=== PATIENT | female | born 1970 | race American Indian/Alaskan Native ===

== ENCOUNTER 2017-01-07 16:55 | Emergency (ER) | payer SELFPAY ==
[2017-01-07 17:57] LABS: Basophils % (Auto) 0.7 % (0.0-1.8); Eosinophils % (Auto) 2.5 % (0.0-4.3); Hematocrit 40.9 % (30.3-42.9); Hemoglobin 12.9 gm/dl (10.1-14.3); Mean Corpuscular HGB Conc 32 % (30-34); Mean Corpuscular Hemoglobin 26 pg (28-32); Mean Corpuscular Volume 83 fl (79-97); Platelet Count 189 K/mm3 (140-440); Red Blood Count 4.96 M/mm3 (3.65-5.03); Red Cell Distribution Width 15.7 % (13.2-15.2); White Blood Count 7.8 K/mm3 (4.5-11.0)
[2017-01-07 18:18] LABS: Anion Gap 17 mmol/L; BUN/Creatinine Ratio 21.66; Blood Urea Nitrogen 26 mg/dL (7-17); Calcium 9.6 mg/dL (8.4-10.2); Carbon Dioxide 25 mmol/L (22-30); Chloride 100.2 mmol/L (98-107); Glucose 95 mg/dL (65-100); Potassium 4.5 mmol/L (3.6-5.0); Sodium 138 mmol/L (137-145)
[2017-01-08] MEDS ORDERED: TORADOL IM ONE (01:14)
--- NOTE | 2017-01-08 01:15 | Emergency Department Report ---
ED General Adult HPI - General Chief complaint: Chest Pain Stated complaint: CHEST PAIN Time Seen by Provider: 01/08/17 01:06 Source: patient, RN notes reviewed, old records reviewed Mode of arrival: Ambulatory Limitations: No Limitations - History of Present Illness Initial comments: This is a 46-year-old female. She is previously unknown to me. Patient does not currently have a primary care doctor. Patient admitted to the hospital September 2016, had a negative nuclear stress test, normal echocardiogram. The patient presents to the ER complaining of chest pain and epigastric pain. This has been present for 2 weeks. It does not radiate to the back, arms and neck. Patient admits to mild nausea, mild shortness of breath, mild cough. There is no leg pain. No leg swelling. No recent trips greater than 4 hours, no diaphoresis, no hospitalizations recently. Patient denies recent cocaine ingestion, and she is also complaining that she thinks that she may have sleep apnea. She reports a sensation of incomplete and not resting during sleep, waking up during the night, and falling asleep during the day. -: Gradual Location: chest Radiation: non-radiation Quality: aching Consistency: intermittent Improves with: rest Worsens with: movement Associated Symptoms: chest pain, cough, loss of appetite, weakness - Related Data Home Medications Medication Instructions Recorded Confirmed Last Taken amLODIPine [Norvasc] 10 mg PO DAILY 01/07/15 01/08/17 04/09/15 5 MG Hydrochlorothiazide [HCTZ] 25 mg PO QDAY 10/03/16 01/08/17 Unknown Lisinopril [Zestril TAB] 20 mg PO QDAY 10/03/16 01/08/17 Unknown Quetiapine Fumarate [Seroquel] 100 mg PO QHS 10/03/16 01/08/17 Unknown Previous Rx's Medication Instructions Recorded Last Taken Type Benzonatate 200 mg PO TID PRN #30 capsule 10/04/16 Unknown Rx Famotidine [Pepcid] 20 mg PO BID #60 tablet 10/04/16 Unknown Rx Albuterol Sulfate [Proair 90 mcg IH Q4HR PRN #2 aer.pow.ba 01/08/17 Unknown Rx Respiclick] Azithromycin [Zithromax Z-ERMELINDA] 250 mg PO QDAY #6 tablet 01/08/17 Unknown Rx Ketorolac [Toradol] 10 mg PO Q6H PRN #20 tablet 01/08/17 Unknown Rx Allergies Allergy/AdvReac Type Severity Reaction Status Date / Time No Known Allergies Allergy Verified 11/25/14 01:33 ED Review of Systems ROS: Stated complaint: CHEST PAIN Other details as noted in HPI Constitutional: malaise Eyes: denies: vision change ENT: denies: epistaxis Respiratory: cough, shortness of breath Cardiovascular: chest pain Gastrointestinal: denies: abdominal pain Genitourinary: denies: dysuria Musculoskeletal: arthralgia, myalgia Skin: denies: lesions Neurological: weakness Psychiatric: as per HPI ED Past Medical Hx - Past Medical History Hx Hypertension: Yes (2004) Hx Congestive Heart Failure: No Hx Diabetes: No Hx Asthma: No Hx COPD: No Additional medical history: Water retention in lower extremeties. Scoliosis / gallstones - Surgical History Past Surgical History?: Yes Additional Surgical History: Surgery for scoliosis. Hernia repair. 1988 - Social History Smoking Status: Never Smoker Substance Use Type: None, Alcohol - Medications Home Medications: Home Medications Medication Instructions Recorded Confirmed Last Taken Type amLODIPine [Norvasc] 10 mg PO DAILY 01/07/15 01/08/17 04/09/15 History 5 MG Hydrochlorothiazide [HCTZ] 25 mg PO QDAY 10/03/16 01/08/17 Unknown History Lisinopril [Zestril TAB] 20 mg PO QDAY 10/03/16 01/08/17 Unknown History Quetiapine Fumarate [Seroquel] 100 mg PO QHS 10/03/16 01/08/17 Unknown History Benzonatate 200 mg PO TID PRN #30 capsule 10/04/16 01/08/17 Unknown Rx Famotidine [Pepcid] 20 mg PO BID #60 tablet 10/04/16 01/08/17 Unknown Rx Albuterol Sulfate [Proair 90 mcg IH Q4HR PRN #2 aer.pow.ba 01/08/17 Unknown Rx Respiclick] Azithromycin [Zithromax Z-ERMELINDA] 250 mg PO QDAY #6 tablet 01/08/17 Unknown Rx Ketorolac [Toradol] 10 mg PO Q6H PRN #20 tablet 01/08/17 Unknown Rx ED Physical Exam - General Limitations: No Limitations General appearance: alert, in no apparent distress - Head Head exam: Present: atraumatic, normocephalic - Eye Eye exam: Present: normal appearance, EOMI. Absent: nystagmus - ENT ENT exam: Present: normal exam, normal orophraynx, mucous membranes moist, normal external ear exam - Neck Neck exam: Present: normal inspection, full ROM. Absent: tenderness, meningismus - Respiratory Respiratory exam: Present: normal lung sounds bilaterally, chest wall tenderness. Absent: respiratory distress, wheezes, rales, rhonchi, stridor, decreased breath sounds - Cardiovascular Cardiovascular Exam: Present: regular rate, normal rhythm, normal heart sounds. Absent: bradycardia, tachycardia, irregular rhythm, systolic murmur, diastolic murmur, rubs, gallop - GI/Abdominal GI/Abdominal exam: Present: soft, normal bowel sounds. Absent: distended, tenderness, guarding, rebound, rigid, pulsatile mass - Extremities Exam Extremities exam: Present: normal inspection, full ROM, normal capillary refill. Absent: tenderness, pedal edema, joint swelling, calf tenderness - Back Exam Back exam: Present: normal inspection, full ROM. Absent: tenderness, CVA tenderness (R), CVA tenderness (L), muscle spasm, paraspinal tenderness, vertebral tenderness - Neurological Exam Neurological exam: Present: alert, oriented X3, normal gait, other (Extraocular movements intact. Tongue midline. No facial droop. Facial sensation intact to light touch in the V1, V2, V3 distribution bilaterally. 5 and 5 strength in 4 extremities.. Sensation is intact to light touch in 4 extremities.). Absent : motor sensory deficit - Psychiatric Psychiatric exam: Present: normal affect, normal mood - Skin Skin exam: Present: warm, dry, intact, normal color. Absent: rash ED Course Vital Signs 01/07/17 01/08/17 01/08/17 17:16 01:30 01:39 Temperature 98.6 F Pulse Rate 80 Respiratory 16 18 18 Rate Blood Pressure 130/94 Blood Pressure [Left] O2 Sat by Pulse 100 97 Oximetry 01/08/17 03:11 Temperature 98.1 F Pulse Rate 81 Respiratory 18 Rate Blood Pressure Blood Pressure 116/71 [Left] O2 Sat by Pulse 96 Oximetry - Reevaluation(s) Reevaluation #1: 01/08/17 02:08 Differential diagnosis: Bronchitis, COPD, pulmonary hypertension, acute coronary syndrome, costochondritis, pneumonia Assessment and plan: 46-year-old female with 2 weeks of atypical chest pain. Troponins negative 3. Initial EKG was technically incorrect secondary to lead placement. A repeat EKG is essentially unchanged from prior EKG. Low risk by VIC score, low risk by heart score, no pulmonary embolus or DVT risk factors, low risk by well's criteria, perc negative. Patient has been observed in the ER for a prolonged period of time. Chest x- ray with nonspecific findings, I am currently awaiting radiology interpretation. However, I believe patient can be safely discharged to follow up with outpatient cardiology given duration of symptoms, and outpatient pulmonology. Reevaluation #2: 01/08/17 03:17 X-ray the chest suggests infiltrate versus atelectasis. Given history of cough , shortness of breath, mucus production, and given that this appears to be new compared to an old x-ray from September 2016, patient will be treated empirically for community-acquired pneumonia. She will be discharged with azithromycin, albuterol therapy as needed. ED Medical Decision Making - Lab Data Result diagrams: 01/07/17 17:45 01/07/17 17:45 Vital Signs 01/07/17 01/08/17 17:16 01:39 Temperature 98.6 F Pulse Rate 80 Respiratory 16 18 Rate Blood Pressure 130/94 O2 Sat by Pulse 100 Oximetry Lab Results 01/07/17 01/07/17 01/08/17 Range/Units 17:45 17:45 00:26 WBC 7.8 (4.5-11.0) K/mm3 RBC 4.96 (3.65-5.03) M/mm3 Hgb 12.9 (10.1-14.3) gm/dl Hct 40.9 (30.3-42.9) % MCV 83 (79-97) fl MCH 26 L (28-32) pg MCHC 32 (30-34) % RDW 15.7 H (13.2-15.2) % Plt Count 189 (140-440) K/mm3 Lymph % (Auto) 29.4 (13.4-35.0) % Sibley % (Auto) 13.1 H (0.0-7.3) % Eos % (Auto) 2.5 (0.0-4.3) % Baso % (Auto) 0.7 (0.0-1.8) % Lymph # 2.3 (1.2-5.4) K/mm3 Sibley # 1.0 H (0.0-0.8) K/mm3 Eos # 0.2 (0.0-0.4) K/mm3 Baso # 0.1 (0.0-0.1) K/mm3 Seg Neutrophils % 54.3 (40.0-70.0) % Seg Neutrophils # 4.2 (1.8-7.7) K/mm3 Sodium 138 (137-145) mmol/L Potassium 4.5 (3.6-5.0) mmol/L Chloride 100.2 (98-107) mmol/L Carbon Dioxide 25 (22-30) mmol/L Anion Gap 17 mmol/L BUN 26 H (7-17) mg/dL Creatinine 1.2 (0.7-1.2) mg/dL Estimated GFR 58 ml/min BUN/Creatinine Ratio 21.66 % Glucose 95 (65-100) mg/dL Calcium 9.6 (8.4-10.2) mg/dL Troponin T < 0.010 < 0.010 (0.00-0.029) ng/mL 01/08/17 Range/Units 00:26 WBC (4.5-11.0) K/mm3 RBC (3.65-5.03) M/mm3 Hgb (10.1-14.3) gm/dl Hct (30.3-42.9) % MCV (79-97) fl MCH (28-32) pg MCHC (30-34) % RDW (13.2-15.2) % Plt Count (140-440) K/mm3 Lymph % (Auto) (13.4-35.0) % Sibley % (Auto) (0.0-7.3) % Eos % (Auto) (0.0-4.3) % Baso % (Auto) (0.0-1.8) % Lymph # (1.2-5.4) K/mm3 Sibley # (0.0-0.8) K/mm3 Eos # (0.0-0.4) K/mm3 Baso # (0.0-0.1) K/mm3 Seg Neutrophils % (40.0-70.0) % Seg Neutrophils # (1.8-7.7) K/mm3 Sodium (137-145) mmol/L Potassium (3.6-5.0) mmol/L Chloride (98-107) mmol/L Carbon Dioxide (22-30) mmol/L Anion Gap mmol/L BUN (7-17) mg/dL Creatinine (0.7-1.2) mg/dL Estimated GFR ml/min BUN/Creatinine Ratio % Glucose (65-100) mg/dL Calcium (8.4-10.2) mg/dL Troponin T < 0.010 (0.00-0.029) ng/mL - EKG Data -: EKG Interpreted by Ri EKG shows normal: sinus rhythm, axis Rate: normal - EKG Data When compared to previous EKG there are: no significant change 01/08/17 02:10 normal sinus, 76 bpm, QTC 477 ms, flattened T-wave V3, V4, V5 and V6, motion artifact, appears essentially unchanged compared to prior EKG. - Radiology Data Radiology results: report reviewed, image reviewed X-ray of the chest demonstrates no evidence of pleural effusion. Patchy mostly linear densities noted in the right lower lobe and left mid and lower lung moderates areas elected cyst likely, but infiltrates are less likely however not excluded. Critical care attestation.: If time is entered above; I have spent that time in minutes in the direct care of this critically ill patient, excluding procedure time. ED Disposition Clinical Impression: Chest pain Disposition: DISCHARGED TO HOME OR SELFCARE Is pt being admited?: No Does the pt Need Aspirin: No Condition: Stable Instructions: Chest Pain (ED) Additional Instructions: Continue current outpatient medications. Follow up with a primary care doctor or [facility] stitcher within the next week to [address] Abe Espino is a local primary care doctor. X-ray of the chest suggested bronchitis versus pneumonia. Take the antibiotics and breathing medication as directed. Drs. Ram/ Rodney are local orthopedic cast specialist. Follow-up with the pulmonology specialist within the next [address] Kraft is a local pulmonology specialist. Return to the ER right away with new pain, worsening pain, migration of pain, fevers or chills, nausea or vomiting, inability to tolerate liquid feeds. Prescriptions: Albuterol Sulfate [Proair Respiclick] 90 mcg IH Q4HR PRN #2 aer.pow.ba PRN Reason: Wheezing Azithromycin [Zithromax Z-ERMELINDA] 250 mg PO QDAY #6 tablet Ketorolac [Toradol] 10 mg PO Q6H PRN #20 tablet PRN Reason: Pain Referrals: PRIMARY CARE, [Primary Care Provider] - 3-5 Days MARYCRUZ LEVY MD [Staff Physician] - 3-5 Days MICHAELA RAM MD [Staff Physician] - 3-5 Days NAI KRAFT MD [Staff Physician] - 3-5 Days
--- NOTE | 2017-01-08 03:10 | XRay Report ---
FINAL REPORT PROCEDURE: XR CHEST ROUTINE TWO VIEWS PA AND LATERAL TECHNIQUE: PA and lateral chest radiographs were obtained. CPT 83335 A total of 3 films obtained. These are 1 PA view and 2 lateral views of the chest HISTORY: Chest pain COMPARISON: No prior studies are available for comparison. FINDINGS: Heart: Normal. Mediastinum/Vessels: The mediastinal contour is normal when accounting for distortion due to severe curvature of the thoracic spine to the right.. Lungs/Pleural space: There is no pulmonary edema or significant pleural effusion. Patchy linear densities in right lower lobe and in left midlung and left lower lobe are most likely atelectasis. Although less likely, small patchy infiltrates are not excluded. There is no plain film evidence of pneumothorax.. Bony thorax: Severe curvature of mid thoracic spine to the right. A metallic nadya projects over the thoracic spine. Other: IMPRESSION: 1. There is no pulmonary edema. 2. There is no plain film evidence of significant pleural effusion or pneumothorax. 3. Heart size is normal. 4. Patchy mostly linear densities in right lower lobe and in left mid and lower lung are most likely moderate areas of atelectasis. Moderate infiltrates are felt to be less likely but not excluded. 5. Severe curvature of mid thoracic spine to the right. A metallic nadya over thoracic spine noted.
[2017-01-08 03:15] VITALS: BP 116/71
== END 2017-01-08 03:25 | disposition home or self-care (01) ==
LOC: ED 16:55
DX: R07.9 Chest pain, unspecified (principal); I10 Essential (primary) hypertension
CPT/HCPCS: 36415; 71020; 80048; 83880; 84484; 85025; 93005; 93010; 96372; 99284; J1885

== ENCOUNTER 2017-02-21 14:49 | Emergency (ER) | payer SELFPAY ==
[2017-02-21] MEDS ORDERED: CLEOCIN IM ONE (20:25)
[2017-02-21] MEDS ORDERED: NORCO 5/325 PO ONE (20:25)
--- NOTE | 2017-02-21 20:25 | Emergency Department Report ---
- General Chief complaint: Skin/Abscess/Foreign Body Stated complaint: SPIDER BITE LEFT ARM Time Seen by Provider: 02/21/17 20:01 Source: patient, family Mode of arrival: Ambulatory Limitations: No Limitations - History of Present Illness Initial comments: Patient here reports that she was bitten by an insect her left forearm. She doesn't know what it was. She says she has redness and swelling to her left forearm that she noticed yesterday. Denies any fever or chills. Reported pain is 6 out of 10 and aching. Denies taking any [id number] medication. Denies any nausea vomiting. Denies any numbness or tingling to the left forearm. Denies any radiation of pain. Denies any limited range of motion to her fingers. MD complaint: insect bite/sting Onset/Timin -: days(s) Tetanus Up to Date: no Location: LUE (left forearm) Severity: moderate Severity scale (0 -10): 6 Quality: aching Improves with: immobilization, rest Worsens with: palpation, movement Context: witnessed insect bite Associated symptoms: athralgias Treatments Prior to Arrival: none - Related Data Home Medications Medication Instructions Recorded Confirmed Last Taken amLODIPine [Norvasc] 10 mg PO DAILY 01/07/15 01/08/17 04/09/15 5 MG Hydrochlorothiazide [HCTZ] 25 mg PO QDAY 10/03/16 01/08/17 Unknown Lisinopril [Zestril TAB] 20 mg PO QDAY 10/03/16 01/08/17 Unknown Quetiapine Fumarate [Seroquel] 100 mg PO QHS 10/03/16 01/08/17 Unknown Previous Rx's Medication Instructions Recorded Last Taken Type Benzonatate 200 mg PO TID PRN #30 capsule 10/04/16 Unknown Rx Famotidine [Pepcid] 20 mg PO BID #60 tablet 10/04/16 Unknown Rx Albuterol Sulfate [Proair 90 mcg IH Q4HR PRN #2 aer.pow.ba 01/08/17 Unknown Rx Respiclick] Azithromycin [Zithromax Z-ERMELINDA] 250 mg PO QDAY #6 tablet 01/08/17 Unknown Rx Ketorolac [Toradol] 10 mg PO Q6H PRN #20 tablet 01/08/17 Unknown Rx Cephalexin [Keflex] 500 mg PO Q8HR #30 cap 02/21/17 Unknown Rx Ibuprofen [Motrin] 600 mg PO Q8H PRN #15 tablet 02/21/17 Unknown Rx Allergies Allergy/AdvReac Type Severity Reaction Status Date / Time No Known Allergies Allergy Verified 11/25/14 01:33 Abscess Boil HPI - HPI Chief Complaint: Skin/Abscess/Foreign Body Stated Complaint: SPIDER BITE LEFT ARM Time Seen by Provider: 02/21/17 20:01 Home Medications: Home Medications Medication Instructions Recorded Confirmed Last Taken amLODIPine [Norvasc] 10 mg PO DAILY 01/07/15 01/08/17 04/09/15 5 MG Hydrochlorothiazide [HCTZ] 25 mg PO QDAY 10/03/16 01/08/17 Unknown Lisinopril [Zestril TAB] 20 mg PO QDAY 10/03/16 01/08/17 Unknown Quetiapine Fumarate [Seroquel] 100 mg PO QHS 10/03/16 01/08/17 Unknown Previous Rx's Medication Instructions Recorded Last Taken Type Benzonatate 200 mg PO TID PRN #30 capsule 10/04/16 Unknown Rx Famotidine [Pepcid] 20 mg PO BID #60 tablet 10/04/16 Unknown Rx Albuterol Sulfate [Proair 90 mcg IH Q4HR PRN #2 aer.pow.ba 01/08/17 Unknown Rx Respiclick] Azithromycin [Zithromax Z-ERMELINDA] 250 mg PO QDAY #6 tablet 01/08/17 Unknown Rx Ketorolac [Toradol] 10 mg PO Q6H PRN #20 tablet 01/08/17 Unknown Rx Cephalexin [Keflex] 500 mg PO Q8HR #30 cap 02/21/17 Unknown Rx Ibuprofen [Motrin] 600 mg PO Q8H PRN #15 tablet 02/21/17 Unknown Rx Allergies/Adverse Reactions: Allergies Allergy/AdvReac Type Severity Reaction Status Date / Time No Known Allergies Allergy Verified 11/25/14 01:33 ED Review of Systems ROS: Stated complaint: SPIDER BITE LEFT ARM Other details as noted in HPI Comment: All other systems reviewed and negative Constitutional: denies: chills, fever ENT: denies: congestion Respiratory: no symptoms reported Cardiovascular: denies: chest pain, palpitations, edema, syncope Gastrointestinal: denies: abdominal pain, nausea, vomiting Musculoskeletal: arthralgia. denies: back pain, joint swelling, myalgia Skin: other (redness and swelling to right forearm) Neurological: denies: headache, weakness, numbness, paresthesias, confusion, abnormal gait, vertigo ED Past Medical Hx - Past Medical History Previous Medical History?: Yes Hx Hypertension: Yes (2004) Hx Congestive Heart Failure: No Hx Diabetes: No Hx Asthma: No Hx COPD: No Additional medical history: Water retention in lower extremeties. Scoliosis / gallstones - Surgical History Past Surgical History?: Yes Additional Surgical History: Surgery for scoliosis. Hernia repair. 1988 - Family History Family history: hypertension - Social History Smoking Status: Current Every Day Smoker Substance Use Type: None - Medications Home Medications: Home Medications Medication Instructions Recorded Confirmed Last Taken Type amLODIPine [Norvasc] 10 mg PO DAILY 01/07/15 01/08/17 04/09/15 History 5 MG Hydrochlorothiazide [HCTZ] 25 mg PO QDAY 10/03/16 01/08/17 Unknown History Lisinopril [Zestril TAB] 20 mg PO QDAY 10/03/16 01/08/17 Unknown History Quetiapine Fumarate [Seroquel] 100 mg PO QHS 10/03/16 01/08/17 Unknown History Benzonatate 200 mg PO TID PRN #30 capsule 10/04/16 01/08/17 Unknown Rx Famotidine [Pepcid] 20 mg PO BID #60 tablet 10/04/16 01/08/17 Unknown Rx Albuterol Sulfate [Proair 90 mcg IH Q4HR PRN #2 aer.pow.ba 01/08/17 Unknown Rx Respiclick] Azithromycin [Zithromax Z-ERMELINDA] 250 mg PO QDAY #6 tablet 01/08/17 Unknown Rx Ketorolac [Toradol] 10 mg PO Q6H PRN #20 tablet 01/08/17 Unknown Rx Cephalexin [Keflex] 500 mg PO Q8HR #30 cap 02/21/17 Unknown Rx Ibuprofen [Motrin] 600 mg PO Q8H PRN #15 tablet 02/21/17 Unknown Rx ED Physical Exam - General Limitations: No Limitations General appearance: alert, in no apparent distress - Head Head exam: Present: atraumatic, normocephalic, normal inspection - Eye Eye exam: Present: normal appearance, PERRL, EOMI Pupils: Present: normal accommodation - ENT ENT exam: Present: normal exam, normal orophraynx, mucous membranes moist, TM's normal bilaterally, normal external ear exam - Neck Neck exam: Present: normal inspection, full ROM. Absent: tenderness, meningismus, lymphadenopathy - Respiratory Respiratory exam: Present: normal lung sounds bilaterally. Absent: respiratory distress, chest wall tenderness - Cardiovascular Cardiovascular Exam: Present: regular rate, normal rhythm, normal heart sounds - GI/Abdominal GI/Abdominal exam: Present: soft, normal bowel sounds. Absent: distended, tenderness, guarding, rebound, rigid - Expanded Upper Extremity Exam Left General: Absent: laceration, abrasion, nail injury (#), foreign body, amputation , avulsion Shoulder Exam: Present: normal inspection, full ROM. Absent: tenderness, swelling, abrasion, laceration, ecchymosis, deformity, crepidus, dislocation, erythema, tenderness over AC joint Upper Arm exam: Present: normal inspection, full ROM. Absent: tenderness, swelling, abrasion, laceration, ecchymosis, deformity, crepidus, dislocation, erythema Elbow exam: Present: normal inspection, full ROM. Absent: tenderness, swelling , abrasion, laceration, ecchymosis, deformity, crepidus, dislocation, erythema, effusion, pain w/ pronation/supination, tenderness over radial head Forearm Wrist exam: Present: full ROM, tenderness (left midforearm), swelling ( left midforearm). Absent: abrasion, laceration, ecchymosis, deformity, crepidus , dislocation, erythema, tenderness over anatomical snuff box, pain with axial thumb loading Hand Wrist exam: Present: normal inspection, full ROM. Absent: tenderness, swelling, abrasion, laceration, ecchymosis, deformity, crepidus, dislocation, erythema, amputation, nail avulsion, subungual hematoma Neuro motor exam: Present: wrist extension intact, thumb opposition intact, thumb IP flexion intact, thumb adduction intact, fingers 2-5 abduction intact Neurosensory exam: Present: 2-point discrimination, radial nerve intact, ulnar nerve intact, median nerve intact Vascular: Present: normal capillary refill, radial pulse, brachial pulse, ulnar pulse. Absent: vascular compromise, Pallo, pulse deficit radial art, pulse deficit ulnar art, pulse deficit brachial art - Back Exam Back exam: Present: normal inspection, full ROM. Absent: tenderness - Neurological Exam Neurological exam: Present: alert, oriented X3, normal gait, reflexes normal. Absent: motor sensory deficit - Psychiatric Psychiatric exam: Present: normal affect, normal mood - Skin Skin exam: Present: warm, dry, intact, erythema (2 x 2 centimeter area of erythema without any streaking. Pinpoint opening to Center of erythema. No induration or fluctuance noted. No drainage noted.) - Expanded Skin Exam Expanded Type of lesion: Present: bite/sting Distribution of rash: LUE (left forearm) Description of rash: Present: size (2 cm x 2 cm), tenderness, erythematous, swelling (mild swelling). Absent: discharge, fluctuant, indurated ED Course Vital Signs 02/21/17 15:43 Temperature 97.9 F Pulse Rate 80 Respiratory 16 Rate Blood Pressure 140/94 O2 Sat by Pulse 100 Oximetry - Reevaluation(s) Reevaluation #1: 02/21/17 21:33 Patient given tetanus vaccine and clindamycin 600 mg IM and emergency room for cellulitis. ED Medical Decision Making - Medical Decision Making ED course:Pt with cellulitis to left forearm from insect bite. She was given clindamycin 600 mg IM for cellulitis and strict 0.5 mg IM. I discussed the patient that she is any need to follow-up with primary care physician if she does not have one to follow-up with [facility]. Patient given prescription for Keflex 3 times a day. Discharged home in stable condition with prescription for Motrin and Keflex. Critical care attestation.: If time is entered above; I have spent that time in minutes in the direct care of this critically ill patient, excluding procedure time. ED Disposition Clinical Impression: Cellulitis of left forearm Insect bite Qualifiers: Encounter type: initial encounter Qualified Code(s): W57.XXXA - Bitten or stung by nonvenomous insect and other nonvenomous arthropods, initial encounter Disposition: DISCHARGED TO HOME OR SELFCARE Is pt being admited?: No Does the pt Need Aspirin: No Condition: Stable Instructions: Cellulitis (ED), Insect Bite or Sting (ED) Additional Instructions: Please take antibiotic as prescribed. If You Developed increased redness, fever, loss of feeling and right Streaking to left forearm please return to the emergency room otherwise follow-up with a primary care physician or [facility] in 2-3 days. Prescriptions: Cephalexin [Keflex] 500 mg PO Q8HR #30 cap Ibuprofen [Motrin] 600 mg PO Q8H PRN #15 tablet PRN Reason: Pain Referrals: PRIMARY CARE,MD [Primary Care Provider] - 2-3 Days [facility] [Outside] - 2-3 Days Forms: Work/School Release Form(ED)
[2017-02-21] MEDS ORDERED: BOOSTRIX IM ONE (20:48)
[2017-02-21 22:07] VITALS: BP 146/88
== END 2017-02-21 22:00 | disposition home or self-care (01) ==
LOC: ED 14:49
DX: L03.114 Cellulitis of left upper limb (principal); I10 Essential (primary) hypertension; F17.200 Nicotine dependence, unspecified, uncomplicated; W57.XXXA Bitten or stung by nonvenomous insect and other nonvenomous arthropods, initial encounter; Y93.89 Activity, other specified; Y99.9 Unspecified external cause status; Y92.89 Other specified places as the place of occurrence of the external cause
CPT/HCPCS: 90471; 90715; 96372

== ENCOUNTER 2017-03-18 10:38 | Emergency (ER) | payer SELFPAY ==
[2017-03-18] MEDS ORDERED: TESSALON PERLES PO ONE (13:06)
[2017-03-18] MEDS ORDERED: DUONEB 0.5 MG-3 MG/3 ML SOLN IH ONE (13:06)
--- NOTE | 2017-03-18 13:24 | Emergency Department Report ---
ED General Adult HPI - General Chief complaint: Upper Respiratory Infection Stated complaint: LEFT SIDE PAIN/MOUTH WATERY Time Seen by Provider: 03/18/17 12:50 Source: patient Mode of arrival: Ambulatory Limitations: No Limitations - History of Present Illness Initial comments: PT c/o vomiting every night x 3-4 weeks. PT also c/o cough x 2-3 weeks. PT also c/o swelling in her legs x 2-3 weeks. PT denies orthopnea. Pt states she is vomiting up "a ball of slop"PT also c/o LUQ abd pain. pt denies cp. MD Complaint: vomiting/ cough Onset/Timin -: Gradual, week(s) Location: abdomen Severity scale (0 -10): 7 (abd pain) Quality: aching Consistency: constant Associated Symptoms: cough, nausea/vomiting. denies: chest pain, fever/chills - Related Data Home Medications Medication Instructions Recorded Confirmed Last Taken amLODIPine [Norvasc] 10 mg PO DAILY 01/07/15 01/08/17 04/09/15 5 MG Hydrochlorothiazide [HCTZ] 25 mg PO QDAY 10/03/16 01/08/17 Unknown Lisinopril [Zestril TAB] 20 mg PO QDAY 10/03/16 01/08/17 Unknown Quetiapine Fumarate [Seroquel] 100 mg PO QHS 10/03/16 01/08/17 Unknown Previous Rx's Medication Instructions Recorded Last Taken Type Albuterol Sulfate [Proair 90 mcg IH Q4HR PRN #2 aer.pow.ba 01/08/17 Unknown Rx Respiclick] Benzonatate [Tessalon Perles] 100 mg PO Q8HR PRN #12 capsule 03/18/17 Unknown Rx Omeprazole Magnesium [PriLOSEC Otc] 40 mg PO QDAY #14 tablet. 03/18/17 Unknown Rx Allergies Allergy/AdvReac Type Severity Reaction Status Date / Time No Known Allergies Allergy Verified 03/18/17 10:57 ED Review of Systems ROS: Stated complaint: LEFT SIDE PAIN/MOUTH WATERY Other details as noted in HPI Comment: All other systems reviewed and negative Constitutional: malaise, other (fatigue ). denies: chills, fever ENT: denies: ear pain, throat pain, congestion Respiratory: cough. denies: orthopnea, SOB at rest, wheezing Cardiovascular: edema. denies: chest pain Gastrointestinal: abdominal pain, nausea, vomiting, diarrhea (x 2 days ) Genitourinary: denies: dysuria Musculoskeletal: denies: back pain Neurological: denies: abnormal gait ED Past Medical Hx - Past Medical History Previous Medical History?: Yes Hx Hypertension: Yes (2004) Hx Congestive Heart Failure: No Hx Diabetes: No Hx Asthma: No Hx COPD: No Additional medical history: Water retention in lower extremeties. Scoliosis / gallstones - Surgical History Additional Surgical History: Surgery for scoliosis. Hernia repair. 1988 - Social History Smoking Status: Never Smoker Substance Use Type: Alcohol - Medications Home Medications: Home Medications Medication Instructions Recorded Confirmed Last Taken Type amLODIPine [Norvasc] 10 mg PO DAILY 01/07/15 01/08/17 04/09/15 History 5 MG Hydrochlorothiazide [HCTZ] 25 mg PO QDAY 10/03/16 01/08/17 Unknown History Lisinopril [Zestril TAB] 20 mg PO QDAY 10/03/16 01/08/17 Unknown History Quetiapine Fumarate [Seroquel] 100 mg PO QHS 10/03/16 01/08/17 Unknown History Albuterol Sulfate [Proair 90 mcg IH Q4HR PRN #2 aer.pow.ba 01/08/17 Unknown Rx Respiclick] Benzonatate [Tessalon Perles] 100 mg PO Q8HR PRN #12 capsule 03/18/17 Unknown Rx Omeprazole Magnesium [PriLOSEC Otc] 40 mg PO QDAY #14 tablet. 03/18/17 Unknown Rx ED Physical Exam - General Limitations: No Limitations General appearance: alert, in no apparent distress - Head Head exam: Present: atraumatic, normocephalic, normal inspection - Eye Eye exam: Present: normal appearance. Absent: conjunctival injection - ENT ENT exam: Present: normal exam, normal orophraynx, mucous membranes moist, TM's normal bilaterally, normal external ear exam - Neck Neck exam: Present: normal inspection, full ROM. Absent: tenderness, lymphadenopathy - Respiratory Respiratory exam: Present: rhonchi (LLL). Absent: respiratory distress, wheezes , chest wall tenderness, accessory muscle use, decreased breath sounds - Cardiovascular Cardiovascular Exam: Present: regular rate, normal rhythm, normal heart sounds - GI/Abdominal GI/Abdominal exam: Present: soft, tenderness (LUQ and RUQ), hyperactive bowel sounds. Absent: guarding, rebound - Extremities Exam Extremities exam: Present: normal inspection, full ROM. Absent: pedal edema, joint swelling, calf tenderness - Back Exam Back exam: Present: normal inspection, full ROM. Absent: tenderness, CVA tenderness (R), CVA tenderness (L), paraspinal tenderness, vertebral tenderness - Neurological Exam Neurological exam: Present: alert, oriented X3, CN II-XII intact - Psychiatric Psychiatric exam: Present: normal affect, normal mood - Skin Skin exam: Present: warm, dry, intact, normal color ED Course Vital Signs 03/18/17 03/18/17 10:59 18:00 Temperature 98.6 F 97.7 F Pulse Rate 69 73 Respiratory 20 18 Rate Blood Pressure 140/98 Blood Pressure 120/72 [Right] O2 Sat by Pulse 99 99 Oximetry - Reevaluation(s) Reevaluation #1: 03/18/17 15:10 PT aware of plan of care. PT has no questions at this time. Reevaluation #2: 03/18/17 17:36 PT states she is feeling better. PT aware of lab, XR and CT scan. PT aware of abnormal findings. PT aware she will need to follow up with OB/ SENIOR PACKAGING ENGINEER and she may need further outpt imaging. PT verbalizes understanding. PT has no questions at this time. - Pulse Oximetry Interpretation Digit-Finger Initial Pulse Oximetry Readin Actions Taken: none ED Medical Decision Making - Lab Data Result diagrams: 03/18/17 13:10 03/18/17 13:10 Labs 03/18/17 03/18/17 03/18/17 13:10 13:10 13:10 WBC 7.5 RBC 4.87 Hgb 13.1 Hct 41.4 MCV 85 MCH 27 L MCHC 32 RDW 16.0 H Plt Count 205 Lymph % (Auto) 29.4 [place] % (Auto) 10.4 H Eos % (Auto) 2.4 Baso % (Auto) 0.5 Lymph # 2.2 [place] # 0.8 Eos # 0.2 Baso # 0.0 Seg Neutrophils % 57.3 Seg Neutrophils # 4.3 Sodium 137 Potassium 4.0 Chloride 98.7 Carbon Dioxide 23 Anion Gap 19 BUN 23 H Creatinine 1.1 Estimated GFR > 60 BUN/Creatinine Ratio 20.90 Glucose 94 Calcium 9.2 Total Bilirubin 0.30 AST 17 ALT 17 Alkaline Phosphatase 80 NT-Pro-B Natriuret Pep 34.19 Total Protein 7.5 Albumin 4.0 Albumin/Globulin Ratio 1.1 Lipase 22 Urine Color Urine Turbidity Urine pH Ur Specific [place] Urine Protein Urine Glucose (UA) Urine Ketones Urine Blood Urine Nitrite Urine Bilirubin Urine Urobilinogen Ur Leukocyte Esterase Urine WBC (Auto) Urine RBC (Auto) U Epithel Cells (Auto) Urine Mucus Urine HCG, Qual 03/18/17 14:01 WBC RBC Hgb Hct MCV MCH MCHC RDW Plt Count Lymph % (Auto) [place] % (Auto) Eos % (Auto) Baso % (Auto) Lymph # [place] # Eos # Baso # Seg Neutrophils % Seg Neutrophils # Sodium Potassium Chloride Carbon Dioxide Anion Gap BUN Creatinine Estimated GFR BUN/Creatinine Ratio Glucose Calcium Total Bilirubin AST ALT Alkaline Phosphatase NT-Pro-B Natriuret Pep Total Protein Albumin Albumin/Globulin Ratio Lipase Urine Color Yellow Urine Turbidity Clear Urine pH 6.0 Ur Specific [place] 1.018 Urine Protein <15 mg/dl Urine Glucose (UA) Neg Urine Ketones Neg Urine Blood Neg Urine Nitrite Neg Urine Bilirubin Neg Urine Urobilinogen < 2.0 Ur Leukocyte Esterase Neg Urine WBC (Auto) 1.0 Urine RBC (Auto) 2.0 U Epithel Cells (Auto) 1.0 Urine Mucus Few Urine HCG, Qual Negative - Radiology Data Radiology results: report reviewed CXR- NAP CT-ABD pelvis - NAP, dilated structure to the R of of the uterus - Differential Diagnosis bronchitis, pna, uri, gerd, pancreatitis, uti, renal colic Critical Care Time: No Critical care attestation.: If time is entered above; I have spent that time in minutes in the direct care of this critically ill patient, excluding procedure time. ED Disposition Clinical Impression: Cough Abdominal pain Qualifiers: Abdominal location: left upper quadrant Qualified Code(s): R10.12 - Left upper quadrant pain Nausea & vomiting Qualifiers: Vomiting type: unspecified Vomiting Intractability: non-intractable Qualified Code(s): R11.2 - Nausea with vomiting, unspecified Disposition: DISCHARGED TO HOME OR SELFCARE Is pt being admited?: No Does the pt Need Aspirin: No Condition: Stable Instructions: Gastroesophageal Reflux Disease (ED), Acute Nausea and Vomiting ( ED), Chronic Cough (ED), Abdominal Pain (ED) Additional Instructions: As we discussed, follow up with INSTRUCTIONAL SUPPORT SERVICES DIRECTOR due to your CT findings Refrain from smoking Prescriptions: Benzonatate [Tessalon Perles] 100 mg PO Q8HR PRN #12 capsule PRN Reason: Cough Omeprazole Magnesium [PriLOSEC Otc] 40 mg PO QDAY #14 tablet.dr Referrals: [facility] [Outside] - 3-5 Days [facility] [Outside] - 3-5 Days BREA ALLEN MD [Staff Physician] - 3-5 Days PRIMARY [facility], [Primary Care Provider] - 3-5 Days HA PASTOR MD [Staff Physician] - 3-5 Days
--- NOTE | 2017-03-18 13:31 | XRay Report ---
PA and lateral chest: Cough Focal areas of linear and curvilinear density identified in the mid and lower portions of both lungs. The lungs otherwise appear generally unremarkable. The mediastinal contour is normal. There is a dextroscoliosis with a Serrato nadya present. These findings are similar to those noted on 08 January 2017. Impressions: Bilateral atelectasis/scar.
[2017-03-18 13:39] LABS: Basophils % (Auto) 0.5 % (0.0-1.8); Eosinophils % (Auto) 2.4 % (0.0-4.3); Hematocrit 41.4 % (30.3-42.9); Hemoglobin 13.1 gm/dl (10.1-14.3); Mean Corpuscular HGB Conc 32 % (30-34); Mean Corpuscular Hemoglobin 27 pg (28-32); Mean Corpuscular Volume 85 fl (79-97); Platelet Count 205 K/mm3 (140-440); Red Blood Count 4.87 M/mm3 (3.65-5.03); White Blood Count 7.5 K/mm3 (4.5-11.0)
[2017-03-18 14:07] LABS: Alanine Aminotransferase 17 units/L (7-56); Albumin/Globulin Ratio 1.1 %; Alkaline Phosphatase 80 units/L (35-129); Anion Gap 19 mmol/L; Blood Urea Nitrogen 23 mg/dL (7-17); Calcium 9.2 mg/dL (8.4-10.2); Carbon Dioxide 23 mmol/L (22-30); Chloride 98.7 mmol/L (98-107); Glucose 94 mg/dL (65-100); Lipase 22 units/L (13-60); Sodium 137 mmol/L (137-145); Total Protein 7.5 g/dL (6.3-8.2)
[2017-03-18 14:48] LABS: Bilirubin,Urine NEG (Negative); Blood,Urine NEG (Negative); Ketones,Urine NEG (Negative); Leukocyte Esterase,Urine NEG (Negative); Mucus,Urine FEW /HPF; Nitrite,Urine NEG (Negative); Protein,Urine <15 mg/dL mg/dL (Negative); Urobilinogen,Urine < 2.0 mg/dL (<2.0)
[2017-03-18] MEDS ORDERED: NACL ONE (15:55)
--- NOTE | 2017-03-18 16:45 | Cat Scan Report ---
CT abdomen and pelvis with contrast: History: Left upper quadrant pain, vomiting. Following injection of intravenous contrast transverse images were obtained from a low chest and ischium. 2-D coronal and sagittal reformatted images included. There are multiple bibasilar areas of thick, linear areas of pulmonary atelectasis. The abdominal and retroperitoneal organs appear unremarkable. The abdominal aorta is normal in size and contour. There is no jcarlos-aortic or mesenteric adenopathy identified. The unopacified small bowel and mesentery are unremarkable. The appendix is visualized. No inflammatory lesions noted. There is a moderate degree of fecal matter throughout colon. Sections through the pelvis demonstrate a focal enhancement or calcification in the left side of the uterus. There is a tubular appearing structure extending from the right side of the uterus connecting to a low density 4.2 cm ovoid collection or mass lateral and posterior to the uterus. No free fluid identified. Impressions: 1. Bibasilar pulmonary atelectasis. 2. Suspicion of right hydrosalpinx. Suggest pelvic ultrasound.
[2017-03-18 18:04] VITALS: BP 120/72
== END 2017-03-18 18:00 | disposition home or self-care (01) ==
LOC: ED 10:38
DX: R10.12 Left upper quadrant pain (principal); R11.2 Nausea with vomiting, unspecified; R05 Cough; I10 Essential (primary) hypertension
CPT/HCPCS: 36415; 71020; 74177; 80053; 81001; 81025; 83690; 83880; 85025; 94640; 99284; Q9967

== ENCOUNTER 2017-07-14 11:03 | Emergency (ER) | payer SELFPAY ==
[2017-07-14] MEDS ORDERED: TORADOL IM ONE (13:55)
[2017-07-14] MEDS ORDERED: BOOSTRIX IM ONE (13:58)
--- NOTE | 2017-07-14 14:04 | Emergency Department Report ---
ED Lower Extremity HPI - General Chief Complaint: Fall Stated Complaint: FALL,RIGHT LEG PAIN Time Seen by Provider: 07/14/17 13:54 Source: patient Mode of arrival: Ambulatory Limitations: No Limitations - History of Present Illness Initial Comments: Pt is a 47 y/o aaf with hx of htn, depression, nad GERD who prsents s/p fall left through drain grate 2 days ago. pt endorses " I was walking in [employer] parking lot and fell through drain grate and I got a cut no my leg" EMS reported to scene bandaged and d/c'd to self , pt did not seek tx that day , pt remains ambulatory without gait disturbance. complains of increase pain and swelling to RLE , there is no numbness no tingling no paresthesia no weakness no drainage from abrasion wound. Complaint: leg injury Onset/Timin -: days(s) Injury: Leg: Right (right anterior tib/fib abrasion pain swelling ) Type of Injury: blunt, other (fall) Place: street/outdoors Severity: moderate Severity scale (0 -10): 5 Improves With: nothing (nothing tried) Worsens With: weight bearing, movement, palpation Context: fall Associated Symptoms: swelling, ambulatory. denies: snap/pop sensation, numbness , tingling - Related Data Home Medications Medication Instructions Recorded Confirmed Last Taken amLODIPine [Norvasc] 10 mg PO DAILY 01/07/15 01/08/17 04/09/15 5 MG Hydrochlorothiazide [HCTZ] 25 mg PO QDAY 10/03/16 01/08/17 Unknown Lisinopril [Zestril TAB] 20 mg PO QDAY 10/03/16 01/08/17 Unknown Quetiapine Fumarate [Seroquel] 100 mg PO QHS 10/03/16 01/08/17 Unknown Previous Rx's Medication Instructions Recorded Last Taken Type Albuterol Sulfate [Proair 90 mcg IH Q4HR PRN #2 aer.pow.ba 01/08/17 Unknown Rx Respiclick] Benzonatate [Tessalon Perles] 100 mg PO Q8HR PRN #12 capsule 03/18/17 Unknown Rx Omeprazole Magnesium [PriLOSEC Otc] 40 mg PO QDAY #14 tablet. 03/18/17 Unknown Rx Ibuprofen [Motrin 800 MG tab] 800 mg PO Q8HR PRN #30 tablet 07/14/17 Unknown Rx Neomycin Mejia/Bacitrac Zn/Poly 14.2 gm TP BID #1 tube 07/14/17 Unknown Rx [Neosporin Antibiotic Ointment] Allergies Allergy/AdvReac Type Severity Reaction Status Date / Time No Known Allergies Allergy Verified 03/18/17 10:57 ED Review of Systems ROS: Stated complaint: FALL,RIGHT LEG PAIN Other details as noted in HPI Constitutional: denies: chills, fever Eyes: denies: eye pain, eye discharge, vision change ENT: denies: ear pain, throat pain Respiratory: denies: cough, shortness of breath, wheezing Cardiovascular: denies: chest pain, palpitations Endocrine: no symptoms reported Gastrointestinal: denies: abdominal pain, nausea, diarrhea Genitourinary: denies: urgency, dysuria, discharge Musculoskeletal: myalgia, other (right LE pain ). denies: back pain, joint swelling, arthralgia Skin: other (abrasion right tib fib ) Neurological: denies: headache, weakness, paresthesias Psychiatric: denies: anxiety, depression Hematological/Lymphatic: denies: easy bleeding, easy bruising ED Past Medical Hx - Past Medical History Previous Medical History?: Yes Hx Hypertension: Yes (2004) Hx Congestive Heart Failure: No Hx Diabetes: No Hx Asthma: No Hx COPD: No Additional medical history: Water retention in lower extremeties. Scoliosis / gallstones - Surgical History Past Surgical History?: Yes Additional Surgical History: Surgery for scoliosis. Hernia repair. 1988 - Social History Smoking Status: Current Every Day Smoker Substance Use Type: Prescribed - Medications Home Medications: Home Medications Medication Instructions Recorded Confirmed Last Taken Type amLODIPine [Norvasc] 10 mg PO DAILY 01/07/15 01/08/17 04/09/15 History 5 MG Hydrochlorothiazide [HCTZ] 25 mg PO QDAY 10/03/16 01/08/17 Unknown History Lisinopril [Zestril TAB] 20 mg PO QDAY 10/03/16 01/08/17 Unknown History Quetiapine Fumarate [Seroquel] 100 mg PO QHS 10/03/16 01/08/17 Unknown History Albuterol Sulfate [Proair 90 mcg IH Q4HR PRN #2 aer.pow.ba 01/08/17 Unknown Rx Respiclick] Benzonatate [Tessalon Perles] 100 mg PO Q8HR PRN #12 capsule 03/18/17 Unknown Rx Omeprazole Magnesium [PriLOSEC Otc] 40 mg PO QDAY #14 tablet. 03/18/17 Unknown Rx Ibuprofen [Motrin 800 MG tab] 800 mg PO Q8HR PRN #30 tablet 07/14/17 Unknown Rx Neomycin Mejia/Bacitrac Zn/Poly 14.2 gm TP BID #1 tube 07/14/17 Unknown Rx [Neosporin Antibiotic Ointment] ED Physical Exam - General Limitations: No Limitations General appearance: alert, in no apparent distress - Head Head exam: Present: atraumatic, normocephalic - Eye Eye exam: Present: normal appearance - ENT ENT exam: Present: mucous membranes moist - Neck Neck exam: Present: normal inspection, full ROM. Absent: tenderness, lymphadenopathy, thyromegaly - Respiratory Respiratory exam: Present: normal lung sounds bilaterally. Absent: respiratory distress, wheezes, rhonchi, chest wall tenderness - Cardiovascular Cardiovascular Exam: Present: regular rate, normal rhythm, normal heart sounds. Absent: systolic murmur, diastolic murmur, rubs, gallop - GI/Abdominal GI/Abdominal exam: Present: soft, normal bowel sounds. Absent: tenderness, rigid, organomegaly, mass, bruit, pulsatile mass, hernia - Rectal Rectal exam: Present: deferred - Extremities Exam Extremities exam: Present: tenderness (right L E ), normal capillary refill. Absent: pedal edema, joint swelling, calf tenderness - Expanded Lower Extremity Exam Right Hip exam: Present: normal inspection, full ROM Upper Leg exam: Present: normal inspection, full ROM Knee exam: Present: normal inspection, full ROM Lower Leg exam: Present: tenderness (abrasion site no erythema no edema no drainage ), swelling (mild anterior swelling no calf tenderness no homans sign polishing machine tender < 3 sec bilat flexion and extension intact without restriction or pain ), abrasion (right mid anterior tib fib abrasion 1 cm no bleeding no erythema no drainage ). Absent: laceration, ecchymosis, deformity, crepidus, dislocation, erythema, palpable cord, Katie's sign Ankle exam: Present: normal inspection, full ROM. Absent: tenderness, swelling Foot/Toe exam: Present: normal inspection, full ROM. Absent: tenderness, swelling Neuro vascular tendon exam: Present: no vascular compromise. Absent: pulse deficit, abnormal cap refill, motor deficit, sensory deficit, tendon deficit, extremity cold to touch, pallor, abnormal 2-point discrimination, decreased fine /light touch, foot drop, peroneal nerve deficit, significant pain with passive ROM of distal joint Gait: Positive: observed and limited by pain - Back Exam Back exam: Present: normal inspection, full ROM. Absent: tenderness, CVA tenderness (R), CVA tenderness (L), muscle spasm, paraspinal tenderness, vertebral tenderness, rash noted ED Course Vital Signs 07/14/17 07/14/17 11:24 14:11 Temperature 98.2 F Pulse Rate 78 Respiratory 18 22 Rate Blood Pressure 142/101 O2 Sat by Pulse 100 Oximetry ED Lower Extremity MDM - Radiology Data Radiology results: report reviewed no fracture no soft tissue abnormality - Medical Decision Making Pt is a 47 y/o aaf with hx of htn, depression, nad GERD who prsents s/p fall left through drain grate 2 days ago. pt endorses " [place] walking [place] [employer] [place] and fell through drain grate and I got a cut no my leg" EMS reported to scene bandaged and d/c'd to self , pt did not seek tx that day , pt remains ambulatory without gait disturbance. complains of increase pain and swelling to RLE , there is no numbness no tingling no paresthesia no weakness no drainage from abrasion wound. exam: pt appears well nontoxic no acute distress, ambulatory with gait disturbance. RLE Tib/Fib,mild anterior swelling no calf tenderness no homans sign polishing machine tender < 3 sec bilat flexion and extension intact without restriction or pain xray tib/fib: negative no fracture no soft tissue abnomality plan: nsaids prn pain , wound care instruction for abrasion follow up with primary care doctor at [facility] as scheduled pt has hx of htn with htn episode today however did not take htn medication pt directed to take medications upon arrival to home pt is a/ox 3 with nad at this time no headache no dizziness no light headedness no cp no sob pt for dc to self with nad at this time. Critical care attestation.: If time is entered above; I have spent that time in minutes in the direct care of this critically ill patient, excluding procedure time. ED Disposition Clinical Impression: Fall Qualifiers: Encounter type: initial encounter Qualified Code(s): W19.XXXA - Unspecified fall, initial encounter Abrasion of leg, right Qualifiers: Encounter type: initial encounter Qualified Code(s): S80.811A - Abrasion, right lower leg, initial encounter Disposition: TO HOME OR SELFCARE Is pt being admited?: No Does the pt Need Aspirin: No Condition: Stable Instructions: Musculoskeletal Pain (ED), Abrasion (ED) Prescriptions: Ibuprofen [Motrin 800 MG tab] 800 mg PO Q8HR PRN #30 tablet PRN Reason: Pain Neomycin Mejia/Bacitrac Zn/Poly [Neosporin Antibiotic Ointment] 14.2 gm TP BID #1 tube Referrals: PRIMARY CARE, [Primary Care Provider] - 3-5 Days Forms: Work/School Release Form(ED) Time of Disposition: 15:06
[2017-07-14] MEDS ORDERED: TORADOL ONE (14:08)
--- NOTE | 2017-07-14 14:28 | XRay Report ---
RIGHT TIBIA AND FIBULA RADIOGRAPHS INDICATION: Leg pain, status post fall. COMPARISON: None similar. FINDINGS: AP and lateral right tibia and fibula radiographs demonstrate intact bones. Included knee and ankle articulations appear unremarkable as well. Mild diffuse ankle soft tissue swelling not entirely excluded versus related to patient's body . habitus CONCLUSION: No acute right tibia or fibula radiographic abnormality with ankle soft tissue swelling questioned, as above. Please correlate. Thank you for the opportunity to participate in this patient's care.
[2017-07-14 15:18] VITALS: BP 140/91
== END 2017-07-14 15:32 | disposition home or self-care (01) ==
LOC: ED 11:03
DX: S80.811A Abrasion, right lower leg, initial encounter (principal); W19.XXXA Unspecified fall, initial encounter; Y93.9 Activity, unspecified; Y92.9 Unspecified place or not applicable; Y99.9 Unspecified external cause status; I10 Essential (primary) hypertension; F17.200 Nicotine dependence, unspecified, uncomplicated
CPT/HCPCS: 73590; 90471; 96372; 99283; J1885; 90472

== ENCOUNTER 2017-09-01 19:01 | Emergency (ER) | payer SELFPAY ==
[2017-09-01 20:03] LABS: Basophils % (Auto) 0.8 % (0.0-1.8); Eosinophils % (Auto) 1.1 % (0.0-4.3); Hemoglobin 14.2 gm/dl (10.1-14.3); Mean Corpuscular HGB Conc 32 % (30-34); Mean Corpuscular Hemoglobin 27 pg (28-32); Mean Corpuscular Volume 84 fl (79-97); Platelet Count 217 K/mm3 (140-440); Red Blood Count 5.25 M/mm3 (3.65-5.03); White Blood Count 11.1 K/mm3 (4.5-11.0)
[2017-09-01 20:07] LABS: INR 1.08 (0.87-1.13)
[2017-09-01 20:08] LABS: Partial Thromboplastin Time 40.4 Sec. (24.2-36.6)
--- NOTE | 2017-09-01 20:15 | Cat Scan Report ---
FINAL REPORT PROCEDURE: CT HEAD/BRAIN WO CON TECHNIQUE: Computerized tomography of the head was performed without contrast material. HISTORY: neuro deficits \T\lt; 6hrs or sx present upon awakening COMPARISON: No prior studies are available for comparison. FINDINGS: Skull and scalp: Normal. Paranasal sinuses: Unremarkable. Ventricles and subarachnoid spaces: Normal. Cerebrum: No evidence of hemorrhage, acute infarction or mass . Cerebellum and brainstem: No evidence of hemorrhage, acute infarction or mass. Vasculature: Normal. Comments: None. IMPRESSION: No acute intracranial hemorrhage. No acute intracranial abnormality.
[2017-09-01 20:17] LABS: Anion Gap 19 mmol/L; BUN/Creatinine Ratio 19; Blood Urea Nitrogen 23 mg/dL (7-17); Calcium 9.5 mg/dL (8.4-10.2); Carbon Dioxide 26 mmol/L (22-30); Chloride 96.9 mmol/L (98-107); Glucose 87 mg/dL (65-100); Potassium 4.2 mmol/L (3.6-5.0); Sodium 138 mmol/L (137-145)
--- NOTE | 2017-09-02 02:46 | Emergency Department Report ---
ED Neuro Deficit HPI - General Chief Complaint: Neuro Symptoms/Deficit Stated Complaint: BACK PAIN Time Seen by Provider: 09/02/17 02:42 Source: patient Mode of arrival: Ambulatory Limitations: No Limitations - History of Present Illness Initial Comments: 47 yo female with one week h/o right arm paresthesia , coughing, lower back pain. Her arm paresthesia comes and goes and not related to any other neurological symptoms. She has a h/o rods in her back secondary to scoliosis and this back pain is stabbing. Her legs have been swelling also for one week. Pt is a smoker and has been couching for one week.She works at [employer] and is on her feet all day. -: Gradual, week(s) (1) Location: right arm (numbness over dorsum) History of same: No Place: home Severity: mild Improves With: other (on its own) Worsens With: none On Anticoagulants: No Context: gradual onset Associated Symptoms: other (back pain and leg sawelling) - Related Data Home Medications: Home Medications Medication Instructions Recorded Confirmed Last Taken amLODIPine [Norvasc] 10 mg PO DAILY 01/07/15 09/02/17 04/09/15 5 MG Hydrochlorothiazide [HCTZ] 25 mg PO QDAY 10/03/16 09/02/17 Unknown Lisinopril [Zestril TAB] 20 mg PO QDAY 10/03/16 09/02/17 Unknown Quetiapine Fumarate [Seroquel] 100 mg PO QHS 10/03/16 09/02/17 Unknown Previous Rx's Medication Instructions Recorded Last Taken Type Omeprazole Magnesium [PriLOSEC Otc] 40 mg PO QDAY #14 tablet. 03/18/17 Unknown Rx oxyCODONE /ACETAMINOPHEN [Percocet 2 tab PO Q6HR PRN #14 tablet 09/02/17 Unknown Rx 5/325] Allergies/Adverse Reactions: Allergies Allergy/AdvReac Type Severity Reaction Status Date / Time No Known Allergies Allergy Verified 03/18/17 10:57 ED Review of Systems ROS: Stated complaint: BACK PAIN Other details as noted in HPI Constitutional: denies: chills, fever Eyes: denies: eye pain, eye discharge, vision change ENT: denies: ear pain, throat pain Respiratory: cough. denies: shortness of breath, wheezing Cardiovascular: denies: chest pain, palpitations Endocrine: no symptoms reported Gastrointestinal: denies: abdominal pain, nausea, diarrhea Genitourinary: denies: urgency, dysuria, discharge Musculoskeletal: other (LEG SWELLING). denies: back pain, joint swelling, arthralgia Skin: denies: rash, lesions Neurological: paresthesias (RIGHT ARM). denies: headache, weakness Psychiatric: denies: anxiety, depression Hematological/Lymphatic: denies: easy bleeding, easy bruising ED Past Medical Hx - Past Medical History Hx Hypertension: Yes (2004) Hx Congestive Heart Failure: No Hx Diabetes: No Hx Asthma: No Hx COPD: No Additional medical history: Water retention in lower extremeties. Scoliosis / gallstones - Surgical History Additional Surgical History: Surgery for scoliosis. Hernia repair. 1988 - Social History Smoking Status: Current Every Day Smoker Substance Use Type: None - Medications Home Medications: Home Medications Medication Instructions Recorded Confirmed Last Taken Type amLODIPine [Norvasc] 10 mg PO DAILY 01/07/15 09/02/17 04/09/15 History 5 MG Hydrochlorothiazide [HCTZ] 25 mg PO QDAY 10/03/16 09/02/17 Unknown History Lisinopril [Zestril TAB] 20 mg PO QDAY 10/03/16 09/02/17 Unknown History Quetiapine Fumarate [Seroquel] 100 mg PO QHS 10/03/16 09/02/17 Unknown History Omeprazole Magnesium [PriLOSEC Otc] 40 mg PO QDAY #14 tablet. 03/18/17 Unknown Rx oxyCODONE /ACETAMINOPHEN [Percocet 2 tab PO Q6HR PRN #14 tablet 09/02/17 Unknown Rx 5/325] ED Neuro Physical Exam - General Limitations: No Limitations General appearance: alert, in no apparent distress Suspected Stroke: No - Head Head exam: Present: atraumatic, normocephalic - Eye Eye exam: Present: normal appearance, EOMI - ENT ENT exam: Present: mucous membranes moist - Neck Neck exam: Present: normal inspection - Respiratory Respiratory exam: Present: normal lung sounds bilaterally. Absent: respiratory distress - Cardiovascular Cardiovascular Exam: Present: regular rate, normal rhythm. Absent: systolic murmur, diastolic murmur, rubs, gallop - GI/Abdominal GI/Abdominal exam: Present: soft, normal bowel sounds - Rectal Rectal exam: Present: deferred - Extremities Exam Extremities exam: Present: normal inspection, pedal edema (2+ bilateral lower extremities) - Back Exam Back exam: Present: normal inspection, full ROM, tenderness (lumbar spine), other (surgical scar in mid back) - Neurological Exam Neurological exam: Present: alert, oriented X3, CN II-XII intact - Psychiatric Psychiatric exam: Present: normal affect, normal mood - Skin Skin exam: Present: warm, dry, intact, normal color. Absent: rash ED Course Vital Signs 09/01/17 09/02/17 09/02/17 19:26 00:21 01:02 Temperature 98.6 F 98.6 F 98.2 F Pulse Rate 85 80 75 Respiratory 16 18 22 Rate Blood Pressure 131/99 146/108 Blood Pressure 152/76 [Left] O2 Sat by Pulse 97 100 97 Oximetry 09/02/17 02:00 Temperature Pulse Rate 76 Respiratory 20 Rate Blood Pressure 128/95 Blood Pressure [Left] O2 Sat by Pulse 98 Oximetry - Lab Data Result diagrams: 09/01/17 19:47 09/01/17 19:47 Lab Results 09/01/17 09/01/17 09/01/17 Range/Units 19:47 19:47 19:47 WBC 11.1 H (4.5-11.0) K/mm3 RBC 5.25 H (3.65-5.03) M/mm3 Hgb 14.2 (10.1-14.3) gm/dl Hct 44.0 H (30.3-42.9) % MCV 84 (79-97) fl MCH 27 L (28-32) pg MCHC 32 (30-34) % RDW 17.0 H (13.2-15.2) % Plt Count 217 (140-440) K/mm3 Lymph % (Auto) 24.1 (13.4-35.0) % [place] % (Auto) 9.8 H (0.0-7.3) % Eos % (Auto) 1.1 (0.0-4.3) % Baso % (Auto) 0.8 (0.0-1.8) % Lymph # 2.7 (1.2-5.4) K/mm3 [place] # 1.1 H (0.0-0.8) K/mm3 Eos # 0.1 (0.0-0.4) K/mm3 Baso # 0.1 (0.0-0.1) K/mm3 Seg Neutrophils % 64.2 (40.0-70.0) % Seg Neutrophils # 7.1 (1.8-7.7) K/mm3 PT 14.6 (12.2-14.9) Sec. INR 1.08 (0.87-1.13) APTT 40.4 H (24.2-36.6) Sec. Thrombin Time (15.1-19.6) Sec. D-Dimer (0-234) ng/mlDDU Sodium 138 (137-145) mmol/L Potassium 4.2 (3.6-5.0) mmol/L Chloride 96.9 L (98-107) mmol/L Carbon Dioxide 26 (22-30) mmol/L Anion Gap 19 mmol/L BUN 23 H (7-17) mg/dL Creatinine 1.2 (0.7-1.2) mg/dL Estimated GFR 48 ml/min BUN/Creatinine Ratio 19 % Glucose 87 (65-100) mg/dL Calcium 9.5 (8.4-10.2) mg/dL Total Bilirubin (0.1-1.2) mg/dL Direct Bilirubin (0-0.2) mg/dL Indirect Bilirubin mg/dL AST (5-40) units/L ALT (7-56) units/L Alkaline Phosphatase (35-129) units/L Total Creatine Kinase (30-135) units/L CK-MB (CK-2) (0.0-4.0) ng/mL CK-MB (CK-2) Rel Index (0-4) Troponin T < 0.010 (0.00-0.029) ng/mL NT-Pro-B Natriuret Pep (0-450) pg/mL Total Protein (6.3-8.2) g/dL Albumin (3.9-5) g/dL Albumin/Globulin Ratio % Urine Color (Yellow) Urine Turbidity (Clear) Urine pH (5.0-7.0) Ur Specific [place] (1.003-1.030) Urine Protein (Negative) mg/dL Urine Glucose (UA) (Negative) mg/dL Urine Ketones (Negative) mg/dL Urine Blood (Negative) Urine Nitrite (Negative) Urine Bilirubin (Negative) Urine Urobilinogen (<2.0) mg/dL Ur Leukocyte Esterase (Negative) Urine WBC (Auto) (0.0-6.0) /HPF Urine RBC (Auto) (0.0-6.0) /HPF U Epithel Cells (Auto) (0-13.0) /HPF Urine Mucus /HPF Urine Opiates Screen Urine Methadone Screen Acetaminophen (10.0-30.0) ug/mL Ur Barbiturates Screen Ur Phencyclidine Scrn Ur Amphetamines Screen U Benzodiazepines Scrn Urine Cocaine Screen U Marijuana (THC) Screen Drugs of Abuse Note 09/01/17 09/02/17 09/02/17 Range/Units 19:47 02:49 02:49 WBC (4.5-11.0) K/mm3 RBC (3.65-5.03) M/mm3 Hgb (10.1-14.3) gm/dl Hct (30.3-42.9) % MCV (79-97) fl MCH (28-32) pg MCHC (30-34) % RDW (13.2-15.2) % Plt Count (140-440) K/mm3 Lymph % (Auto) (13.4-35.0) % [place] % (Auto) (0.0-7.3) % Eos % (Auto) (0.0-4.3) % Baso % (Auto) (0.0-1.8) % Lymph # (1.2-5.4) K/mm3 [place] # (0.0-0.8) K/mm3 Eos # (0.0-0.4) K/mm3 Baso # (0.0-0.1) K/mm3 Seg Neutrophils % (40.0-70.0) % Seg Neutrophils # (1.8-7.7) K/mm3 PT (12.2-14.9) Sec. INR (0.87-1.13) APTT (24.2-36.6) Sec. Thrombin Time 17.2 (15.1-19.6) Sec. D-Dimer 209.15 (0-234) ng/mlDDU Sodium (137-145) mmol/L Potassium (3.6-5.0) mmol/L Chloride (98-107) mmol/L Carbon Dioxide (22-30) mmol/L Anion Gap mmol/L BUN (7-17) mg/dL Creatinine (0.7-1.2) mg/dL Estimated GFR ml/min BUN/Creatinine Ratio % Glucose (65-100) mg/dL Calcium (8.4-10.2) mg/dL Total Bilirubin (0.1-1.2) mg/dL Direct Bilirubin (0-0.2) mg/dL Indirect Bilirubin mg/dL AST (5-40) units/L ALT (7-56) units/L Alkaline Phosphatase (35-129) units/L Total Creatine Kinase 1818 H (30-135) units/L CK-MB (CK-2) 6.5 H (0.0-4.0) ng/mL CK-MB (CK-2) Rel Index 0.3 (0-4) Troponin T < 0.010 (0.00-0.029) ng/mL NT-Pro-B Natriuret Pep (0-450) pg/mL Total Protein (6.3-8.2) g/dL Albumin (3.9-5) g/dL Albumin/Globulin Ratio % Urine Color (Yellow) Urine Turbidity (Clear) Urine pH (5.0-7.0) Ur Specific [place] (1.003-1.030) Urine Protein (Negative) mg/dL Urine Glucose (UA) (Negative) mg/dL Urine Ketones (Negative) mg/dL Urine Blood (Negative) Urine Nitrite (Negative) Urine Bilirubin (Negative) Urine Urobilinogen (<2.0) mg/dL Ur Leukocyte Esterase (Negative) Urine WBC (Auto) (0.0-6.0) /HPF Urine RBC (Auto) (0.0-6.0) /HPF U Epithel Cells (Auto) (0-13.0) /HPF Urine Mucus /HPF Urine Opiates Screen Urine Methadone Screen Acetaminophen (10.0-30.0) ug/mL Ur Barbiturates Screen Ur Phencyclidine Scrn Ur Amphetamines Screen U Benzodiazepines Scrn Urine Cocaine Screen U Marijuana (THC) Screen Drugs of Abuse Note 09/02/17 09/02/17 09/02/17 Range/Units 03:38 03:38 05:21 WBC (4.5-11.0) K/mm3 RBC (3.65-5.03) M/mm3 Hgb (10.1-14.3) gm/dl Hct (30.3-42.9) % MCV (79-97) fl MCH (28-32) pg MCHC (30-34) % RDW (13.2-15.2) % Plt Count (140-440) K/mm3 Lymph % (Auto) (13.4-35.0) % [place] % (Auto) (0.0-7.3) % Eos % (Auto) (0.0-4.3) % Baso % (Auto) (0.0-1.8) % Lymph # (1.2-5.4) K/mm3 [place] # (0.0-0.8) K/mm3 Eos # (0.0-0.4) K/mm3 Baso # (0.0-0.1) K/mm3 Seg Neutrophils % (40.0-70.0) % Seg Neutrophils # (1.8-7.7) K/mm3 PT (12.2-14.9) Sec. INR (0.87-1.13) APTT (24.2-36.6) Sec. Thrombin Time (15.1-19.6) Sec. D-Dimer 156.42 (0-234) ng/mlDDU Sodium (137-145) mmol/L Potassium (3.6-5.0) mmol/L Chloride (98-107) mmol/L Carbon Dioxide (22-30) mmol/L Anion Gap mmol/L BUN (7-17) mg/dL Creatinine (0.7-1.2) mg/dL Estimated GFR ml/min BUN/Creatinine Ratio % Glucose (65-100) mg/dL Calcium (8.4-10.2) mg/dL Total Bilirubin 0.30 (0.1-1.2) mg/dL Direct Bilirubin 0.2 (0-0.2) mg/dL Indirect Bilirubin 0.1 mg/dL AST 34 (5-40) units/L ALT 14 (7-56) units/L Alkaline Phosphatase 78 (35-129) units/L Total Creatine Kinase (30-135) units/L CK-MB (CK-2) (0.0-4.0) ng/mL CK-MB (CK-2) Rel Index (0-4) Troponin T (0.00-0.029) ng/mL NT-Pro-B Natriuret Pep 13.13 (0-450) pg/mL Total Protein 7.7 (6.3-8.2) g/dL Albumin 4.0 (3.9-5) g/dL Albumin/Globulin Ratio 1.1 % Urine Color (Yellow) Urine Turbidity (Clear) Urine pH (5.0-7.0) Ur Specific [place] (1.003-1.030) Urine Protein (Negative) mg/dL Urine Glucose (UA) (Negative) mg/dL Urine Ketones (Negative) mg/dL Urine Blood (Negative) Urine Nitrite (Negative) Urine Bilirubin (Negative) Urine Urobilinogen (<2.0) mg/dL Ur Leukocyte Esterase (Negative) Urine WBC (Auto) (0.0-6.0) /HPF Urine RBC (Auto) (0.0-6.0) /HPF U Epithel Cells (Auto) (0-13.0) /HPF Urine Mucus /HPF Urine Opiates Screen Urine Methadone Screen Acetaminophen (10.0-30.0) ug/mL Ur Barbiturates Screen Ur Phencyclidine Scrn Ur Amphetamines Screen U Benzodiazepines Scrn Urine Cocaine Screen U Marijuana (THC) Screen Drugs of Abuse Note 09/02/17 09/02/17 09/02/17 Range/Units 05:21 Unknown Unknown WBC (4.5-11.0) K/mm3 RBC (3.65-5.03) M/mm3 Hgb (10.1-14.3) gm/dl Hct (30.3-42.9) % MCV (79-97) fl MCH (28-32) pg MCHC (30-34) % RDW (13.2-15.2) % Plt Count (140-440) K/mm3 Lymph % (Auto) (13.4-35.0) % [place] % (Auto) (0.0-7.3) % Eos % (Auto) (0.0-4.3) % Baso % (Auto) (0.0-1.8) % Lymph # (1.2-5.4) K/mm3 [place] # (0.0-0.8) K/mm3 Eos # (0.0-0.4) K/mm3 Baso # (0.0-0.1) K/mm3 Seg Neutrophils % (40.0-70.0) % Seg Neutrophils # (1.8-7.7) K/mm3 PT (12.2-14.9) Sec. INR (0.87-1.13) APTT (24.2-36.6) Sec. Thrombin Time (15.1-19.6) Sec. D-Dimer (0-234) ng/mlDDU Sodium (137-145) mmol/L Potassium (3.6-5.0) mmol/L Chloride (98-107) mmol/L Carbon Dioxide (22-30) mmol/L Anion Gap mmol/L BUN (7-17) mg/dL Creatinine (0.7-1.2) mg/dL Estimated GFR ml/min BUN/Creatinine Ratio % Glucose (65-100) mg/dL Calcium (8.4-10.2) mg/dL Total Bilirubin (0.1-1.2) mg/dL Direct Bilirubin (0-0.2) mg/dL Indirect Bilirubin mg/dL AST (5-40) units/L ALT (7-56) units/L Alkaline Phosphatase (35-129) units/L Total Creatine Kinase (30-135) units/L CK-MB (CK-2) (0.0-4.0) ng/mL CK-MB (CK-2) Rel Index (0-4) Troponin T (0.00-0.029) ng/mL NT-Pro-B Natriuret Pep (0-450) pg/mL Total Protein (6.3-8.2) g/dL Albumin (3.9-5) g/dL Albumin/Globulin Ratio % Urine Color Yellow (Yellow) Urine Turbidity Clear (Clear) Urine pH 5.0 (5.0-7.0) Ur Specific [place] 1.047 H (1.003-1.030) Urine Protein <15 mg/dl (Negative) mg/dL Urine Glucose (UA) Neg (Negative) mg/dL Urine Ketones Neg (Negative) mg/dL Urine Blood Neg (Negative) Urine Nitrite Neg (Negative) Urine Bilirubin Neg (Negative) Urine Urobilinogen < 2.0 (<2.0) mg/dL Ur Leukocyte Esterase Neg (Negative) Urine WBC (Auto) 9.0 H (0.0-6.0) /HPF Urine RBC (Auto) 1.0 (0.0-6.0) /HPF U Epithel Cells (Auto) 6.0 (0-13.0) /HPF Urine Mucus Few /HPF Urine Opiates Screen Presumptive negative Urine Methadone Screen Presumptive negative Acetaminophen < 15.0 (10.0-30.0) ug/mL Ur Barbiturates Screen Presumptive negative Ur Phencyclidine Scrn Presumptive negative Ur Amphetamines Screen Presumptive negative U Benzodiazepines Scrn Presumptive negative Urine Cocaine Screen Presumptive negative U Marijuana (THC) Screen Presumptive negative Drugs of Abuse Note Disclamer - EKG Data EKG shows normal: sinus rhythm, axis, intervals, QRS complexes Interpretation: nonspecific ST-T wave yue, other (LEDFT ATRIAL ENLARGEMENT) - Radiology Data Radiology results: report reviewed (CT HEAD: NEGATIAVE CT CERVICAL SPINE "NEGATIVE FOR ACUTE, DJD C1-C2, CT THORACIC SPINE; DEXTROSCOLIOSIS WITH SOLITARY AMADOR MARIZOL ONCONCAVE SIDE OF SCOLIOSIS ; CT LUMBAR SPINE; BILATERAL PARS DEFECTS L5-S1) - Medical Decision Making NEGATIVE CT EXCEPT FOR DJD, PT HAD BEEN EXERCISING THSU THIS WOULD ACCOUNT FOR ELEVATED CK. WILL D/C HOME ON PAIN MEDICATION. PT DESATED TO 87 PERCENT WHILE SLEEPING Critical care attestation.: If time is entered above; I have spent that time in minutes in the direct care of this critically ill patient, excluding procedure time. ED Disposition Clinical Impression: Dehydration, Tobacco abuse, Sleep apnea Rhabdomyolysis Qualifiers: Rhabdomyolysis type: non-traumatic Qualified Code(s): M62.82 - Rhabdomyolysis Repetitive strain injury of lower back Qualifiers: Encounter type: initial encounter Qualified Code(s): S39.012A - Strain of muscle, fascia and tendon of lower back, initial encounter Disposition: DC- TO HOME OR SELFCARE Is pt being admited?: No Does the pt Need Aspirin: No Condition: Stable Instructions: Dyspnea (ED), Bronchospasm (ED) Prescriptions: oxyCODONE /ACETAMINOPHEN [Percocet 5/325] 2 tab PO Q6HR PRN #14 tablet PRN Reason: Pain Referrals: PRIMARY CARE, [Primary Care Provider] - 3-5 Days Time of Disposition: 06:41
[2017-09-02] MEDS ORDERED: TORADOL IV ONE (03:02)
[2017-09-02 03:34] LABS: Creatine Kinase 1818 units/L (30-135); Creatine Kinase MB 6.5 ng/mL (0.0-4.0)
[2017-09-02] MEDS ORDERED: NACL 0.9% 1000 ML 1,000 ML IV ONE ×2 (04:24→05:13)
--- NOTE | 2017-09-02 04:27 | Cat Scan Report ---
FINAL REPORT EXAM: CT CERVICAL SPINE W CON HISTORY: right arm numbnesslower back pain nadya for scoliosi TECHNIQUE: Routine axial imaging was obtained of the cervical spine following the intravenous injection of 100 cc of Omnipaque 300. Sagittal and coronal reconstructions were reviewed. FINDINGS: There is multilevel [id number] disc degeneration throughout the entire cervical spine with endplate spurring. The canal size is within normal limits. There is no evidence of nerve root impingement. There is no evidence of abnormal enhancement. The prevertebral soft tissues and C1-C2 articulation appear intact. IMPRESSION: Multilevel [id number] disc degeneration throughout the cervical spine with endplate spurring. No evidence of canal compromise or abnormal enhancement
--- NOTE | 2017-09-02 04:32 | Cat Scan Report ---
FINAL REPORT EXAM: CT THORACIC SPINE W CON HISTORY: right arm numbnesslower back pain nadya for scoliosi TECHNIQUE: Routine axial imaging was obtained of the thoracic spine following the intravenous injection of 100 cc of Omnipaque 300. Sagittal and coronal reconstructions were reviewed. FINDINGS: There is a prominent dextroscoliosis of the thoracic spine. There is a solitary Serrato nadya along the concave side of the scoliosis extending from T3 through L1. There is no evidence of hardware complication. The canal size is grossly normal. There is no evidence of abnormal enhancement of the surrounding soft tissues. The disc heights are preserved. There is no evidence of fracture. The lung gonzalez reveal bibasilar atelectatic changes. IMPRESSION: Dextroscoliosis with solitary Serrato nadya along the concave side of the scoliosis. No evidence of fracture or hardware complication. Bibasilar atelectasis noted in the lungs.
--- NOTE | 2017-09-02 04:35 | Cat Scan Report ---
FINAL REPORT EXAM: CT LUMBAR SPINE W CON HISTORY: lower back pain TECHNIQUE: Routine axial imaging was obtained of the lumbar spine following intravenous injection of 100 cc of Omnipaque 300. Sagittal and coronal reconstructions were reviewed. FINDINGS: The disc heights and alignment appear normal. There are bilateral pars defects at the L5-S1 level without anterolisthesis. There is endplate spurring at several levels. The canal size is normal. The bottom end of the Serrato nadya is noted at the L1 level. There is no evidence of fracture. There is no evidence of abnormal enhancement. IMPRESSION: No acute process identified. Bilateral pars defects at the L5-S1 level without anterolisthesis.
[2017-09-02 05:56] LABS: Albumin/Globulin Ratio 1.1 %; Bilirubin,Total 0.3 mg/dL (0.1-1.2); Total Protein 7.7 g/dL (6.3-8.2)
[2017-09-02 05:58] LABS: Bilirubin,Direct 0.2 mg/dL (0-0.2); Bilirubin,Indirect 0.1 mg/dL
[2017-09-02 06:01] LABS: Urine Drugs of Abuse Note Disclamer
[2017-09-02 06:14] LABS: Bilirubin,Urine NEG (Negative); Blood,Urine NEG (Negative); Ketones,Urine NEG (Negative); Leukocyte Esterase,Urine NEG (Negative); Mucus,Urine FEW /HPF; Nitrite,Urine NEG (Negative); Protein,Urine <15 mg/dL mg/dL (Negative); Urobilinogen,Urine < 2.0 mg/dL (<2.0)
[2017-09-02 06:52] VITALS: BP 120/97
== END 2017-09-02 08:00 | disposition home or self-care (01) ==
LOC: ED 19:01
DX: M62.82 Rhabdomyolysis (principal); S39.012A Strain of muscle, fascia and tendon of lower back, initial encounter; E86.0 Dehydration; G47.30 Sleep apnea, unspecified; F17.210 Nicotine dependence, cigarettes, uncomplicated; I10 Essential (primary) hypertension; X58.XXXA Exposure to other specified factors, initial encounter; Y93.89 Activity, other specified; Y92.89 Other specified places as the place of occurrence of the external cause; Y99.8 Other external cause status
CPT/HCPCS: 36415; 70450; 72126; 72129; 72132; 80048; 80074; 80307; 81001; 82550; 82553; 83880; 84484; 85025; 85379; 85610; 85670; 85730; 93005; 93010; 96361; 96374; 99285; G0480; J1885; J7030; Q9967; 80320

== ENCOUNTER 2017-12-06 04:15 | Emergency (ER) | payer MEDICAID ==
[2017-12-06] MEDS ORDERED: HCTZ PO ONE (07:42)
[2017-12-06] MEDS ORDERED: NORVASC PO ONE (07:42)
--- NOTE | 2017-12-06 07:44 | Emergency Department Report ---
ED Recheck HPI - General Chief Complaint: Recheck/Abnormal Lab/Rx Stated Complaint: MED REFILL Time Seen by Provider: 12/06/17 07:18 Source: patient Mode of arrival: Ambulatory Limitations: No Limitations - History of Present Illness Initial Comments: This is a 47-year-old female nontoxic, well nourished in appearance, no acute signs of distress presents to the ED for medication refill for high blood pressure. Patient stated that she takes amlodipine 10 mg daily and hydrochlorothiazide 25 mg daily. Patient stated she develops intermittent headaches and takes her blood pressure and is elevated. Patient currently in the ED denies any headaches or symptoms. Patient stated when she does develop headache it is a gradual onset and diffuse. Patient denies thunderclap headache or worst headache. Patient denies any blurry vision or visual changes. Patient stated she is asymptomatic. Patient denies any chest pain, shortness of breathe , fever, chills, headache, nausea, vomiting, numbness, tingling, abdominal pain. Patient denies any allergies. Denies significant PMH. Past medical history includes hypertension. MD Complaint: medication refill request Symptoms Since Prior Visit: no new symptoms, improved Associated Symptoms: none. denies: fever, chills, chest pain, shortness of breath, rash, malaise, [place], abdominal pain - Related Data Home Medications Medication Instructions Recorded Confirmed Last Taken amLODIPine [Norvasc] 10 mg PO DAILY 01/07/15 09/02/17 04/09/15 5 MG Hydrochlorothiazide [HCTZ] 25 mg PO QDAY 10/03/16 09/02/17 Unknown Lisinopril [Zestril TAB] 20 mg PO QDAY 10/03/16 09/02/17 Unknown Quetiapine Fumarate [Seroquel] 100 mg PO QHS 10/03/16 09/02/17 Unknown Previous Rx's Medication Instructions Recorded Last Taken Type Omeprazole Magnesium [PriLOSEC Otc] 40 mg PO QDAY #14 tablet. 03/18/17 Unknown Rx oxyCODONE /ACETAMINOPHEN [Percocet 2 tab PO Q6HR PRN #14 tablet 09/02/17 Unknown Rx 5/325] Hydrochlorothiazide [HCTZ] 25 mg PO QDAY #30 tablet 12/06/17 Unknown Rx amLODIPine [Norvasc] 10 mg PO DAILY #30 tab 12/06/17 Unknown Rx Allergies Allergy/AdvReac Type Severity Reaction Status Date / Time No Known Allergies Allergy Verified 03/18/17 10:57 ED Review of Systems ROS: Stated complaint: MED REFILL Other details as noted in HPI Constitutional: denies: chills, fever Eyes: denies: eye pain, eye discharge, vision change ENT: denies: ear pain, throat pain Respiratory: denies: cough, shortness of breath, wheezing Cardiovascular: denies: chest pain, palpitations Endocrine: no symptoms reported Gastrointestinal: denies: abdominal pain, nausea, diarrhea Genitourinary: denies: urgency, dysuria, discharge Musculoskeletal: denies: back pain, joint swelling, arthralgia Skin: denies: rash, lesions Neurological: denies: headache, weakness, paresthesias Psychiatric: denies: anxiety, depression Hematological/Lymphatic: denies: easy bleeding, easy bruising ED Past Medical Hx - Past Medical History Previous Medical History?: Yes Hx Hypertension: Yes (2004) Hx Congestive Heart Failure: No Hx Diabetes: No Hx Asthma: No Hx COPD: No Additional medical history: Water retention in lower extremeties. Scoliosis / gallstones - Surgical History Past Surgical History?: Yes Additional Surgical History: Surgery for scoliosis. Hernia repair. 1988 - Social History Smoking Status: Current Every Day Smoker Substance Use Type: None - Medications Home Medications: Home Medications Medication Instructions Recorded Confirmed Last Taken Type amLODIPine [Norvasc] 10 mg PO DAILY 01/07/15 09/02/17 04/09/15 History 5 MG Hydrochlorothiazide [HCTZ] 25 mg PO QDAY 10/03/16 09/02/17 Unknown History Lisinopril [Zestril TAB] 20 mg PO QDAY 10/03/16 09/02/17 Unknown History Quetiapine Fumarate [Seroquel] 100 mg PO QHS 10/03/16 09/02/17 Unknown History Omeprazole Magnesium [PriLOSEC Otc] 40 mg PO QDAY #14 tablet. 03/18/17 Unknown Rx oxyCODONE /ACETAMINOPHEN [Percocet 2 tab PO Q6HR PRN #14 tablet 09/02/17 Unknown Rx 5/325] Hydrochlorothiazide [HCTZ] 25 mg PO QDAY #30 tablet 12/06/17 Unknown Rx amLODIPine [Norvasc] 10 mg PO DAILY #30 tab 12/06/17 Unknown Rx ED Physical Exam - General Limitations: No Limitations General appearance: alert, in no apparent distress - Head Head exam: Present: atraumatic, normocephalic - Eye Eye exam: Present: normal appearance - ENT ENT exam: Present: mucous membranes moist - Neck Neck exam: Present: normal inspection, full ROM. Absent: tenderness, meningismus, lymphadenopathy, thyromegaly - Respiratory Respiratory exam: Present: normal lung sounds bilaterally. Absent: respiratory distress, wheezes, rales, rhonchi, stridor, chest wall tenderness, accessory muscle use, decreased breath sounds, prolonged expiratory - Cardiovascular Cardiovascular Exam: Present: regular rate, normal rhythm, normal heart sounds. Absent: irregular rhythm, systolic murmur, diastolic murmur, rubs, gallop - GI/Abdominal GI/Abdominal exam: Present: soft, normal bowel sounds. Absent: distended, tenderness, guarding, rebound, rigid, diminished bowel sounds - Extremities Exam Extremities exam: Present: normal inspection, full ROM, normal capillary refill. Absent: tenderness, pedal edema, joint swelling, calf tenderness - Back Exam Back exam: Present: normal inspection, full ROM. Absent: tenderness, CVA tenderness (R), CVA tenderness (L), muscle spasm, paraspinal tenderness, vertebral tenderness, rash noted - Neurological Exam Neurological exam: Present: alert, oriented X3, CN II-XII intact, normal gait, reflexes normal - Psychiatric Psychiatric exam: Present: normal affect, normal mood - Skin Skin exam: Present: warm, dry, intact, normal color. Absent: rash ED Course Vital Signs 12/06/17 04:23 Temperature 98.4 F Pulse Rate 91 H Blood Pressure 159/114 O2 Sat by Pulse 97 Oximetry - Reevaluation(s) Reevaluation #1: 12/06/17 07:42 Patient is speaking in full sentences with no signs of distress noted. ED Recheck MDM - Medical Decision Making This is a 47-year-old female that presents with hypertension. Patient is stable and was examined by me. Patient is neurologically stable. Patient currently in the ED denies any headaches or any symptoms. Patient received a dose of Norvasc and HCTZ in the ED. Patient was given refill medications. Patient was strictly educated and instructed on hypertension and side effects such as brain aneurysms. Patient was instructed to follow up with a primary care doctor in 3-5 days or if symptoms should service severe uncontrollable headache, blurry vision, weakness, chest pain, shortness of breath, or any abnormal symptoms to return to emergency room as soon as possible. At time of discharge, the patient does not seem toxic or ill in appearance. No acute signs of distress noted. Patient agrees to discharge treatment plan of care. No further questions noted by the patient. Critical care attestation.: If time is entered above; I have spent that time in minutes in the direct care of this critically ill patient, excluding procedure time. ED Disposition Clinical Impression: Hypertension Qualifiers: Hypertension type: unspecified Qualified Code(s): I10 - Essential (primary) hypertension Disposition: TO HOME OR SELFCARE Is pt being admited?: No Does the pt Need Aspirin: No Condition: Stable Instructions: Hypertension (ED) Additional Instructions: Follow-up with a primary care doctor in 3-5 days or if symptoms should service severe uncontrollable headache, blurry vision, weakness, chest pain, shortness of breath, or any abnormal symptoms to return to emergency room as soon as possible. Keep a daily diary of your blood pressure and present it to your primary care doctor. Prescriptions: amLODIPine [Norvasc] 10 mg PO DAILY #30 tab Hydrochlorothiazide [HCTZ] 25 mg PO QDAY #30 tablet Referrals: RUCHI PARRA MD [Primary Care Provider] - 3-5 Days DARLENE AHN MD [Staff Physician] - 3-5 Days [facility] [Outside] - 3-[address] [facility] [Outside] - 3-5 Days Forms: Work/School Release Form(ED)
[2017-12-06 07:54] VITALS: BP 147/102
== END 2017-12-06 08:05 | disposition home or self-care (01) ==
LOC: ED 04:15
DX: I10 Essential (primary) hypertension (principal); F17.200 Nicotine dependence, unspecified, uncomplicated
CPT/HCPCS: 99282

== ENCOUNTER 2019-01-01 09:11 | Emergency (ER) | payer MEDICAID ==
[2019-01-01] MEDS ORDERED: ASPIRIN PO ONE (09:38)
[2019-01-01 10:04] LABS: Hemoglobin 12.3 gm/dl (10.1-14.3); Mean Corpuscular HGB Conc 32 % (30-34); Mean Corpuscular Volume 85 fl (79-97); Platelet Count 199 K/mm3 (140-440); Red Blood Count 4.46 M/mm3 (3.65-5.03); Red Cell Distribution Width 16.5 % (13.2-15.2)
--- NOTE | 2019-01-01 10:11 | XRay Report ---
AP CHEST: HISTORY: chest pain Discoid atelectasis has developed at the lung bases since 08/27/18. No evidence for infiltrate, large pleural effusion or pneumothorax. Heart size is at the upper limits of normal. Scoliosis secured by a single Serrato nadya is unchanged. IMPRESSION: Bibasilar atelectatic changes. No acute cardiopulmonary process is identified.
[2019-01-01 10:20] LABS: BUN/Creatinine Ratio 21; Blood Urea Nitrogen 32 mg/dL (7-17); Calcium 8.8 mg/dL (8.4-10.2); Hemolysis Index 12
--- NOTE | 2019-01-01 11:24 | Emergency Department Report ---
ED Chest Pain HPI - General Chief Complaint: Chest Pain Stated Complaint: CHEST PAIN Time Seen by Provider: 01/01/19 10:04 Source: patient Mode of arrival: Stretcher Limitations: No Limitations - History of Present Illness Initial Comments: 48-year-old female with history of hypertension and drug abuse presents to ED with complaint of chest pain and requesting detox. Patient states she was walking down the street and experienced 2 sharp chest pains, lasting approximately 2 seconds. No chest pain since that time. Denies shortness of breath, nausea, vomiting, diaphoresis. Patient reports almost daily use of crack cocaine. States last use was 2 days ago. Patient requested detox. MD Complaint: chest pain -: This morning Onset: other (while walking down the street) Pain Location: substernal Pain Radiation: none Severity: mild Severity scale (0 -10): 5 Quality: sharp Consistency: now resolved Improves With: nothing Worsens With: nothing re: denies: nausea, vomting, diaphoresis, dyspnea Other Symptoms: denies: cough, leg swelling - Related Data Previous Rx's Medication Instructions Recorded Last Taken Type Labetalol [Normodyne TAB] 200 mg PO BID #60 tablet 02/22/18 Unknown Rx amLODIPine [Norvasc] 10 mg PO QDAY #30 tablet 02/22/18 Unknown Rx Amoxicillin 500 mg PO BID #20 capsule 08/27/18 Unknown Rx Fluticasone [Flonase] 1 spray NS QDAY #1 bottle 08/27/18 Unknown Rx predniSONE [Deltasone] 50 mg PO QDAY #5 tab 08/27/18 Unknown Rx Allergies Allergy/AdvReac Type Severity Reaction Status Date / Time No Known Allergies Allergy Verified 08/27/18 13:44 Heart Score - HEART Score History: Slightly suspicious EKG: Normal Age: 45-65 Risk factors: 1-2 risk factors Troponin: < normal limit HEART Score: 2 ED Review of Systems ROS: Stated complaint: CHEST PAIN Other details as noted in HPI Comment: All other systems reviewed and negative Constitutional: denies: chills, fever Respiratory: denies: shortness of breath Cardiovascular: chest pain Gastrointestinal: denies: nausea, vomiting Psychiatric: denies: homicidal thoughts, suicidal thoughts ED Past Medical Hx - Past Medical History Previous Medical History?: Yes Hx Hypertension: Yes Hx Congestive Heart Failure: No Hx Diabetes: No Hx Psychiatric Treatment: Yes (cocaine abuse, schizophrenia, bipolar) Hx Asthma: No Hx COPD: No Additional medical history: Scoliosis / gallstones - Surgical History Past Surgical History?: Yes Additional Surgical History: Surgery for scoliosis. Hernia repair. 1988 - Social History Smoking Status: Current Every Day Smoker Substance Use Type: Cocaine - Medications Home Medications: Home Medications Medication Instructions Recorded Confirmed Last Taken Type Labetalol [Normodyne TAB] 200 mg PO BID #60 tablet 02/22/18 Unknown Rx amLODIPine [Norvasc] 10 mg PO QDAY #30 tablet 02/22/18 Unknown Rx Amoxicillin 500 mg PO BID #20 capsule 08/27/18 Unknown Rx Fluticasone [Flonase] 1 spray NS QDAY #1 bottle 08/27/18 Unknown Rx predniSONE [Deltasone] 50 mg PO QDAY #5 tab 08/27/18 Unknown Rx ED Physical Exam - General Limitations: No Limitations General appearance: alert, in no apparent distress - Head Head exam: Present: atraumatic, normocephalic - Eye Eye exam: Present: normal appearance - ENT ENT exam: Present: mucous membranes moist - Neck Neck exam: Present: normal inspection - Respiratory Respiratory exam: Present: normal lung sounds bilaterally. Absent: respiratory distress - Cardiovascular Cardiovascular Exam: Present: regular rate, normal rhythm - GI/Abdominal GI/Abdominal exam: Present: soft. Absent: distended, tenderness - Extremities Exam Extremities exam: Absent: pedal edema, calf tenderness - Neurological Exam Neurological exam: Present: alert, oriented X3 - Psychiatric Psychiatric exam: Present: normal affect, normal mood. Absent: homicidal ideation, suicidal ideation - Skin Skin exam: Present: warm, dry, intact, normal color. Absent: rash ED Course Vital Signs 01/01/19 01/01/19 01/01/19 09:26 09:30 09:33 Temperature 98.4 F Pulse Rate 86 82 Respiratory 14 Rate Blood Pressure 132/99 Blood Pressure [Right] O2 Sat by Pulse 96 Oximetry 01/01/19 01/01/19 01/01/19 10:00 11:38 13:15 Temperature 98.7 F Pulse Rate 86 16 L Respiratory 18 16 18 Rate Blood Pressure Blood Pressure 128/90 134/82 [Right] O2 Sat by Pulse 99 100 99 Oximetry VIC score - Vic Score Age > 65: (0) No Aspirin use within the Past 7 Days: (0) No 3 or more CAD Risk Factors: (0) No 2 or more Angina events in past 24 hrs: (0) No Known CAD with more than 50% Stenosis: (0) No Elevated Cardiac Markers: (0) No ST Deviation Greater than 0.5mm: (0) No VIC Score: 0 ED Medical Decision Making - Lab Data Result diagrams: 01/01/19 09:53 01/01/19 09:53 - EKG Data -: EKG Interpreted by Me EKG shows normal: sinus rhythm, axis, intervals, QRS complexes, ST-T waves Rate: normal - EKG Data Interpretation: no acute changes - Medical Decision Making Chest pain sounds atypical, does not seem cardiac in nature. EKG unremarkable. Troponin negative. Pt seen and evaluated by mental health. Does not meet inpatient criteria. Will receive outpatient info. Critical care attestation.: If time is entered above; I have spent that time in minutes in the direct care of this critically ill patient, excluding procedure time. ED Disposition Clinical Impression: Chest pain, Cocaine abuse Disposition: DC-01 TO HOME OR SELFCARE Is pt being admited?: No Condition: Stable Instructions: Chest Pain (ED), Cocaine Abuse (ED) Referrals: ANSLEY BRUMFIELD MD [Primary Care Provider] - 3-5 Days Time of Disposition: 12:45
[2019-01-01 12:18] LABS: Amphetamine Screen,Urine PRESUMPTIVE NEGATIVE; Benzodiazepines Screen,Urine PRESUMPTIVE NEGATIVE; Cannabinoid Screen,Urine PRESUMPTIVE NEGATIVE; Methadone Screen,Urine PRESUMPTIVE NEGATIVE; Opiate Screen,Urine PRESUMPTIVE NEGATIVE
[2019-01-01 12:35] LABS: Cocaine Screen,Urine PRESUMPTIVE POSITIVE
[2019-01-01 13:02] LABS: Basophils % (Manual) 0 % (0.0-1.8); Platelet Estimate Consistent w Auto; RBC Morphology Normal; Total Cells Counted 100
[2019-01-01 13:30] VITALS: BP 134/82
== END 2019-01-01 13:15 | disposition home or self-care (01) ==
LOC: ED 09:11
DX: F14.10 Cocaine abuse, uncomplicated (principal); R07.89 Other chest pain; I10 Essential (primary) hypertension; F31.9 Bipolar disorder, unspecified; F20.9 Schizophrenia, unspecified; Z79.899 Other long term (current) drug therapy
CPT/HCPCS: 36415; 71045; 80048; 80307; 84484; 85007; 85025; 93005; 93010; 99285; G0480; 80320

== ENCOUNTER 2019-01-24 12:56 | Emergency (ER) | payer MEDICAID ==
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
[2019-01-24 13:06] VITALS: BP 158/111
[2019-01-24] MEDS ORDERED: TORADOL IM ONE (14:21)
[2019-01-24] MEDS ORDERED: DELTASONE PO ONE (14:21)
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
== END 2019-01-24 14:51 | disposition home or self-care (01) ==
LOC: ED 12:56
DX: S13.4XXA Sprain of ligaments of cervical spine, initial encounter (principal); S39.012A Strain of muscle, fascia and tendon of lower back, initial encounter; I10 Essential (primary) hypertension; F14.10 Cocaine abuse, uncomplicated; V89.2XXA Person injured in unspecified motor-vehicle accident, traffic, initial encounter; Y93.89 Activity, other specified; Y92.488 Other paved roadways as the place of occurrence of the external cause; Y99.8 Other external cause status
CPT/HCPCS: 96372; 99282; J1885; J7512

== ENCOUNTER 2019-05-04 09:48 | Emergency (ER) | payer MEDICAID ==
[2019-05-04 10:39] LABS: Basophils # (Auto) 0.1 K/mm3 (0.0-0.1); Basophils % (Auto) 0.8 % (0.0-1.8); Eosinophils # (Auto) 0.2 K/mm3 (0.0-0.4); Eosinophils % (Auto) 2.7 % (0.0-4.3); Hemoglobin 14.1 gm/dl (10.1-14.3); Lymphocytes # (Auto) 1.5 K/mm3 (1.2-5.4); Lymphocytes % (Auto) 20.9 % (13.4-35.0); Mean Corpuscular HGB Conc 32 % (30-34); Mean Corpuscular Volume 84 fl (79-97); Monocytes # (Auto) 0.8 K/mm3 (0.0-0.8); Platelet Count 189 K/mm3 (140-440); Red Blood Count 5.25 M/mm3 (3.65-5.03); Red Cell Distribution Width 16.3 % (13.2-15.2)
--- NOTE | 2019-05-04 10:48 | XRay Report ---
CHEST 2 VIEWS INDICATION: Shortness of breath, feet and leg swelling for 2 weeks. COMPARISON: 01/01/2019 FINDINGS: Support devices: None. Heart: Within normal limits. Lungs/pleura: No acute air space or interstitial disease. Minor discoid atelectasis is noted in both lower lung zones. No evidence for infiltrate, pleural effusion or pneumothorax. Additional findings: A single Serrato nadya secures dextroscoliosis of the thoracic spine. The bony structures are grossly intact. IMPRESSION: Mild atelectatic changes in the lower lung zones. Scoliosis. No acute cardiopulmonary process. Signer Name: Jaosn Blank Jr, MD Signed: 05/04/2019 10:44 AM Workstation Name: [id number]
--- NOTE | 2019-05-04 10:50 | Emergency Department Report ---
ED General Adult HPI - General Chief complaint: Extremity Injury, Lower Stated complaint: BOTH LEG PAIN/SWELLING/BITE MARTINES Time Seen by Provider: 05/04/19 10:47 Source: patient Mode of arrival: Ambulatory Limitations: No Limitations - History of Present Illness Initial comments: This is a 48 year old female with a history of bipolar disorder and schizop hrenia as well as cocaine abuse. She is homeless. She comes to this facility with chronic leg swelling. She states that she sometimes gets short of breath when she lays down flat. She has chronic back pain. She is not complaining of anything very specific at this time of my encounter. She is sitting at the bedside eating her breakfast. She states that the reason why she came is because she has increased swelling of her legs. Patient is a poor historian. She states she's never been admitted to this facility in the past. However she has been admitted here multiple times. For example, her last discharge yielded the following diagnoses in 2018: - Discharge Diagnoses (1) SEE (acute kidney injury) Status: Acute (2) Cocaine abuse Status: Acute (3) Encephalopathy Status: Acute (4) Hypokalemia Status: Acute (5) Renal insufficiency Status: Acute (6) Schizophrenia Status: Acute Qualifiers: (7) UTI (urinary tract infection) Status: Acute (8) Bipolar 1 disorder Status: Chronic Patient is noncompliant with medication. -: week(s) - Related Data Previous Rx's Medication Instructions Recorded Last Taken Type Labetalol [Labetalol 200mg TAB] 200 mg PO BID #60 tablet 02/22/18 Unknown Rx amLODIPine [Norvasc] 10 mg PO QDAY #30 tablet 02/22/18 Unknown Rx Amoxicillin 500 mg PO BID #20 capsule 08/27/18 Unknown Rx Fluticasone [Flonase] 1 spray NS QDAY #1 bottle 08/27/18 Unknown Rx predniSONE [Deltasone] 50 mg PO QDAY #5 tab 08/27/18 Unknown Rx Acetaminophen/Codeine [Tylenol 1 tab PO Q6H PRN #12 tab 01/24/19 Unknown Rx /Codeine # 3 tab] Allergies Allergy/AdvReac Type Severity Reaction Status Date / Time No Known Allergies Allergy Verified 05/04/19 09:50 ED Review of Systems ROS: Stated complaint: BOTH LEG PAIN/SWELLING/BITE MARTINES Other details as noted in HPI Constitutional: denies: chills, fever Eyes: denies: eye pain, eye discharge, vision change ENT: denies: ear pain, throat pain Respiratory: orthopnea, shortness of breath. denies: cough, wheezing Cardiovascular: edema. denies: chest pain, palpitations Endocrine: no symptoms reported Gastrointestinal: denies: abdominal pain, nausea, diarrhea Genitourinary: denies: urgency, dysuria, discharge Musculoskeletal: back pain (chronic lower back pain). denies: joint swelling, arthralgia Skin: denies: rash, lesions Neurological: denies: headache, weakness, paresthesias Psychiatric: denies: anxiety, depression Hematological/Lymphatic: denies: easy bleeding, easy bruising ED Past Medical Hx - Past Medical History Hx Hypertension: Yes Hx Congestive Heart Failure: No Hx Diabetes: No Hx Psychiatric Treatment: Yes (cocaine abuse, schizophrenia, bipolar) Hx Asthma: No Hx COPD: No Additional medical history: Scoliosis / gallstones - Surgical History Additional Surgical History: Surgery for scoliosis. Hernia repair. 1988 - Social History Smoking Status: Current Every Day Smoker Substance Use Type: None - Medications Home Medications: Home Medications Medication Instructions Recorded Confirmed Last Taken Type Labetalol [Labetalol 200mg TAB] 200 mg PO BID #60 tablet 02/22/18 Unknown Rx amLODIPine [Norvasc] 10 mg PO QDAY #30 tablet 02/22/18 Unknown Rx Amoxicillin 500 mg PO BID #20 capsule 08/27/18 Unknown Rx Fluticasone [Flonase] 1 spray NS QDAY #1 bottle 08/27/18 Unknown Rx predniSONE [Deltasone] 50 mg PO QDAY #5 tab 08/27/18 Unknown Rx Acetaminophen/Codeine [Tylenol 1 tab PO Q6H PRN #12 tab 01/24/19 Unknown Rx /Codeine # 3 tab] ED Physical Exam - General Limitations: Other (psychiatric disorder) General appearance: alert, in no apparent distress - Head Head exam: Present: atraumatic, normocephalic - Eye Eye exam: Present: normal appearance. Absent: scleral icterus - ENT ENT exam: Present: mucous membranes moist - Neck Neck exam: Present: normal inspection - Respiratory Respiratory exam: Present: normal lung sounds bilaterally. Absent: respiratory distress - Cardiovascular Cardiovascular Exam: Present: regular rate, normal rhythm. Absent: systolic murmur, diastolic murmur, rubs, gallop - GI/Abdominal GI/Abdominal exam: Present: soft, normal bowel sounds. Absent: distended, tenderness, guarding, rebound - Extremities Exam Extremities exam: Present: other (bilateral pitting leg edema) - Back Exam Back exam: Present: normal inspection - Neurological Exam Neurological exam: Present: alert, oriented X3, CN II-XII intact. Absent: motor sensory deficit - Psychiatric Psychiatric exam: Present: normal affect, normal mood - Skin Skin exam: Present: warm, dry, intact, normal color, other (multiple apparent verrucous lesions dorsum foot). Absent: rash ED Course Vital Signs 05/04/19 05/04/19 05/04/19 09:58 10:02 11:15 Temperature 98.7 F Pulse Rate 157 H 83 73 Respiratory 20 Rate Blood Pressure 192/131 192/118 Blood Pressure [Left] O2 Sat by Pulse 100 96 Oximetry 05/04/19 05/04/19 11:17 11:33 Temperature Pulse Rate 69 72 Respiratory 18 18 Rate Blood Pressure Blood Pressure 186/116 157/101 [Left] O2 Sat by Pulse 95 96 Oximetry ED Medical Decision Making - Lab Data Result diagrams: 05/04/19 10:08 05/04/19 10:08 Laboratory Results - last 24 hr 05/04/19 10:08 WBC 7.2 RBC 5.25 H Hgb 14.1 Hct 44.0 H MCV 84 MCH 27 L MCHC 32 RDW 16.3 H Plt Count 189 Lymph % (Auto) 20.9 [place] % (Auto) 11.0 H Eos % (Auto) 2.7 Baso % (Auto) 0.8 Lymph # 1.5 [place] # 0.8 Eos # 0.2 Baso # 0.1 Seg Neutrophils % 64.6 Seg Neutrophils # 4.7 Laboratory Results - last 24 hr 05/04/19 05/04/19 05/04/19 10:08 10:08 10:08 WBC 7.2 RBC 5.25 H Hgb 14.1 Hct 44.0 H MCV 84 MCH 27 L MCHC 32 RDW 16.3 H Plt Count 189 Lymph % (Auto) 20.9 [place] % (Auto) 11.0 H Eos % (Auto) 2.7 Baso % (Auto) 0.8 Lymph # 1.5 [place] # 0.8 Eos # 0.2 Baso # 0.1 Seg Neutrophils % 64.6 Seg Neutrophils # 4.7 PT INR APTT D-Dimer Sodium 144 Potassium 4.2 Chloride 108.5 H Carbon Dioxide 25 Anion Gap 15 BUN 22 H Creatinine 1.4 H Estimated GFR 48 BUN/Creatinine Ratio 16 Glucose 95 Calcium 9.1 Magnesium 2.00 Total Bilirubin 0.20 Direct Bilirubin < 0.2 Indirect Bilirubin 0.0 AST 17 ALT 11 Alkaline Phosphatase 96 Total Creatine Kinase 234 H CK-MB (CK-2) 3.6 CK-MB (CK-2) Rel Index 1.5 NT-Pro-B Natriuret Pep 132.5 Total Protein 7.5 Albumin 3.8 L Albumin/Globulin Ratio 1.0 05/04/19 11:03 WBC RBC Hgb Hct MCV MCH MCHC RDW Plt Count Lymph % (Auto) [place] % (Auto) Eos % (Auto) Baso % (Auto) Lymph # [place] # Eos # Baso # Seg Neutrophils % Seg Neutrophils # PT 15.0 H INR 1.21 H APTT 32.6 D-Dimer 263.05 H Sodium Potassium Chloride Carbon Dioxide Anion Gap BUN Creatinine Estimated GFR BUN/Creatinine Ratio Glucose Calcium Magnesium Total Bilirubin Direct Bilirubin Indirect Bilirubin AST ALT Alkaline Phosphatase Total Creatine Kinase CK-MB (CK-2) CK-MB (CK-2) Rel Index NT-Pro-B Natriuret Pep Total Protein Albumin Albumin/Globulin Ratio - EKG Data -: EKG Interpreted by Me EKG shows normal: sinus rhythm Rate: normal - EKG Data Interpretation: nonspecific ST-T wave yue, LV[facility] - Radiology Data Chest x-ray does appear to show some interstitial edema, I believe. Read as no acute process by radiologist. Rojelio covington present. Critical care attestation.: If time is entered above; I have spent that time in minutes in the direct care of this critically ill patient, excluding procedure time. ED Disposition Clinical Impression: Malignant hypertension, Leg edema Disposition: OP ADMIT IP TO THIS HOSP Is pt being admited?: Yes Does the pt Need Aspirin: Yes Condition: Stable Instructions: Hypertension (ED) Time of Disposition: 12:34
[2019-05-04 10:51] LABS: Calcium 9.1 mg/dL (8.4-10.2)
[2019-05-04] MEDS ORDERED: NORMODYNE IV ONE (11:05)
[2019-05-04 11:26] LABS: INR 1.21 (0.87-1.13); Partial Thromboplastin Time 32.6 Sec. (24.2-36.6)
[2019-05-04 11:56] LABS: Creatine Kinase MB 3.6 ng/mL (0.0-4.0)
[2019-05-04 11:58] LABS: Alanine Aminotransferase 11 units/L (7-56); Albumin 3.8 g/dL (3.9-5)
[2019-05-04 12:08] LABS: Bilirubin,Direct < 0.2 mg/dL (0-0.2)
[2019-05-04] MEDS ORDERED: ASPIRIN PO ONE (12:35)
--- NOTE | 2019-05-04 13:29 | History and Physical Report ---
History of Present Illness Chief complaint: Im just hurting History of present illness: 48 YO Female with HTN, Bipolar, Nicotine Dependence, Schizophrenia, Substance Abuse presents to ED for evaluation. Pt states that she has experienced pain in her legs,back, chest-all over her body. Pt acknowledges cocaine use, as well as headache and confusion. Pt stats that she has experienced the aforementioned symptoms over the past 3 days with persistent symptoms over the same time frame. Pt transported to [facility] via private vehicle. Pt seen and evaluated in ED and found to have ARF, Polysubstance Abuse. Pt admitted to medical floor with remote telemetry. Pt initiated on IVF resuscitation therapy. Pt denies fever, chills, chest pain, palpitations, numbness, NVD, Syncope, BRBPR. Pt acknowledges crack cocaine binge for past 48 hours. Prior admission on reviewed Past History Past Medical History: hypertension, other (bipolar,schizophrenia) Past Surgical History: , hernia repair Social history: smoking, prescription drug abuse Family history: no significant family history Medications and Allergies Allergies Allergy/AdvReac Type Severity Reaction Status Date / Time No Known Allergies Allergy Verified 05/04/19 09:50 Home Medications Medication Instructions Recorded Confirmed Last Taken Type Labetalol [Labetalol 200mg TAB] 200 mg PO BID #60 tablet 02/22/18 Unknown Rx Amoxicillin 500 mg PO BID #20 capsule 08/27/18 Unknown Rx Fluticasone [Flonase] 1 spray NS QDAY #1 bottle 08/27/18 Unknown Rx predniSONE [Deltasone] 50 mg PO QDAY #5 tab 08/27/18 Unknown Rx Acetaminophen/Codeine [Tylenol 1 tab PO Q6H PRN #12 tab 01/24/19 Unknown Rx /Codeine # 3 tab] Hydralazine HCl 50 mg PO BID #60 tablet 05/04/19 Unknown Rx amLODIPine [Norvasc] 10 mg PO QDAY #30 tablet 05/04/19 Unknown Rx Review of Systems Constitutional: chronic pain, no weight loss, no weight gain, no fever, no chills Ears, nose, mouth and throat: no ear pain, no ear discharge, no nose pain, no nasal congestion, no nasal discharge Breasts: no change in shape, no swelling, no mass Cardiovascular: no chest pain, no orthopnea, no rapid/irregular heart beat, no edema, no syncope, no lightheadedness Respiratory: no cough, no cough with sputum, no excessive sputum, no shortness of breath Gastrointestinal: no abdominal pain, no vomiting, no diarrhea Genitourinary Female: no pelvic pain, no flank pain, no dysuria, no mixed incontinence Menstruation: no currently menstrual, no premenarcheal, no post hysterectomy, no ammenorrhea on BC Rectal: no pain Musculoskeletal: no neck stiffness, no neck pain, no shooting arm pain, no low back pain, no shooting leg pain, no leg numbness/tingling Integumentary: no rash, no redness Neurological: no transient paralysis, no parathesias, no numbness, no tingling, no seizures Psychiatric: no memory loss, no insomnia, no hypersomnia, no change in appetite Endocrine: no cold intolerance, no heat intolerance, no polyphagia, no excessive thirst Exam - Constitutional Vitals: Temp Pulse Resp BP Pulse Ox 98.7 F 72 18 157/101 96 05/04/19 09:58 05/04/19 11:33 05/04/19 11:33 05/04/19 11:33 05/04/19 11:33 General appearance: Present: mild distress, obese - EENT Eyes: Present: PERRL ENT: hearing intact, clear oral mucosa - Neck Neck: Present: supple, normal ROM - Respiratory Respiratory effort: normal Respiratory: bilateral: CTA - Cardiovascular Heart Sounds: Present: S1 & S2. Absent: rub, click - Extremities Extremities: pulses symmetrical, No edema Peripheral Pulses: within normal limits - Abdominal General gastrointestinal: Present: soft, non-tender, non-distended, normal bowel sounds Female genitourinary: Present: normal - Integumentary Integumentary: Present: clear, warm, dry - Musculoskeletal Musculoskeletal: gait normal, strength equal bilaterally - Psychiatric Psychiatric: appropriate mood/affect, intact judgment & insight - Neurologic Neurologic: CNII-XII intact, moves all extremities Results - Labs CBC & Chem 7: 05/04/19 10:08 05/04/19 10:08 Labs: Abnormal lab results 05/04/19 05/04/19 05/04/19 Range/Units 10:08 10:08 10:08 RBC 5.25 H (3.65-5.03) M/mm3 Hct 44.0 H (30.3-42.9) % MCH 27 L (28-32) pg RDW 16.3 H (13.2-15.2) % [place] % (Auto) 11.0 H (0.0-7.3) % PT (12.2-14.9) Sec. INR (0.87-1.13) D-Dimer (0-234) ng/mlDDU Chloride 108.5 H (98-107) mmol/L BUN 22 H (7-17) mg/dL Creatinine 1.4 H (0.7-1.2) mg/dL Total Creatine Kinase 234 H (30-135) units/L Albumin 3.8 L (3.9-5) g/dL 05/04/19 Range/Units 11:03 RBC (3.65-5.03) M/mm3 Hct (30.3-42.9) % MCH (28-32) pg RDW (13.2-15.2) % [place] % (Auto) (0.0-7.3) % PT 15.0 H (12.2-14.9) Sec. INR 1.21 H (0.87-1.13) D-Dimer 263.05 H (0-234) ng/mlDDU Chloride (98-107) mmol/L BUN (7-17) mg/dL Creatinine (0.7-1.2) mg/dL Total Creatine Kinase (30-135) units/L Albumin (3.9-5) g/dL Assessment and Plan - Patient Problems (1) ARF (acute renal failure) with tubular necrosis Status: Acute Plan to address problem: IVF resuscitation therapy, monitor uop q shift, urine electrolytes, monitor serum creatnine. (2) Nicotine dependence unspecified, with withdrawal Status: Acute Qualifiers: Nicotine product type: cigarettes Qualified Code(s): F17.213 - Nicotine dependence, cigarettes, with withdrawal Plan to address problem: smoking cessation counseling, +15 minutes, supportive care (3) Cocaine abuse Status: Acute Plan to address problem: Supportive care, antiemetic therapy, IVF resuscitation, diet as tolerated. (4) DVT prophylaxis Status: Acute Plan to address problem: SCD to BLE while in bed, Pt ambulatory
--- NOTE | 2019-05-04 13:30 | Vascular Lab Report ---
DUPLEX DOPPLER LOWER EXTREMITY VEINS, BILATERAL INDICATION: bilateral leg edema, elevated d-dimer. TECHNIQUE: Duplex doppler imaging was performed through the veins of both lower extremities using venous little joy and other maneuvers. COMPARISON: No relevant prior imaging study available. FINDINGS: Right Common femoral vein: Negative. Right Superficial femoral vein: Negative. Right Popliteal vein: Negative. Right Calf veins: Negative. Left Common femoral vein: Negative. Left Superficial femoral vein: Negative. Left Popliteal vein: Negative. Left Calf veins: Negative. Additional findings: None.. IMPRESSION: No sonographic evidence for DVT in either lower extremity. Signer Name: Jason Blank Jr, MD Signed: 05/04/2019 1:25 PM Workstation Name: [id number]
[2019-05-04] MEDS ORDERED: NORVASC PO ONE (14:46)
[2019-05-04] MEDS ORDERED: NORVASC ONE (14:50)
[2019-05-04] MEDS ORDERED: ASPIRIN ONE (14:50)
[2019-05-04 14:58] LABS: Mucus,Urine FEW /HPF
[2019-05-04 14:59] LABS: Bilirubin,Urine NEG (Negative); Blood,Urine NEG (Negative); Color,Urine Straw (Yellow); Protein,Urine <15 mg/dL mg/dL (Negative); Urobilinogen,Urine < 2.0 mg/dL (<2.0)
[2019-05-04 15:01] VITALS: BP 183/11
[2019-05-04 15:07] LABS: Amphetamine Screen,Urine PRESUMPTIVE NEGATIVE; Benzodiazepines Screen,Urine PRESUMPTIVE NEGATIVE; Cannabinoid Screen,Urine PRESUMPTIVE NEGATIVE; Methadone Screen,Urine PRESUMPTIVE NEGATIVE; Opiate Screen,Urine PRESUMPTIVE NEGATIVE
[2019-05-04 15:32] LABS: Cocaine Screen,Urine PRESUMPTIVE POSITIVE
--- NOTE | 2019-05-06 11:49 | Event Note ---
Date: 05/04/19 Pt left AMA prior to completion of workup. Pt counseled regarding risk of worsening condition, and even . Pt acknowledges understanding instruction.
== END 2019-05-04 15:02 | disposition left against medical advice (07) ==
LOC: ED 09:48
DX: I10 Essential (primary) hypertension (principal); R60.0 Localized edema; F20.9 Schizophrenia, unspecified; F31.9 Bipolar disorder, unspecified; F14.10 Cocaine abuse, uncomplicated; F17.200 Nicotine dependence, unspecified, uncomplicated; Z98.890 Other specified postprocedural states; Z79.899 Other long term (current) drug therapy
CPT/HCPCS: 36415; 71046; 80048; 80076; 80307; 81001; 82550; 82553; 83735; 83880; 85025; 85379; 85610; 85730; 93005; 93010; 93970; 96374; 99285

== ENCOUNTER 2019-06-20 12:02 | Inpatient (IN) | payer MEDICAID ==
[2019-06-20 12:41] LABS: Basophils # (Auto) 0.1 K/mm3 (0.0-0.1); Basophils % (Auto) 0.9 % (0.0-1.8); Eosinophils # (Auto) 0.2 K/mm3 (0.0-0.4); Eosinophils % (Auto) 2.4 % (0.0-4.3); Hematocrit 44.3 % (30.3-42.9); Hemoglobin 14.2 gm/dl (10.1-14.3); Lymphocytes # (Auto) 1.5 K/mm3 (1.2-5.4); Lymphocytes % (Auto) 19.7 % (13.4-35.0); Mean Corpuscular HGB Conc 32 % (30-34); Mean Corpuscular Volume 83 fl (79-97); Monocytes # (Auto) 0.8 K/mm3 (0.0-0.8); Monocytes % (Auto) 10.6 % (0.0-7.3); Platelet Count 212 K/mm3 (140-440); Red Blood Count 5.35 M/mm3 (3.65-5.03); Red Cell Distribution Width 16.4 % (13.2-15.2)
[2019-06-20] MEDS ORDERED: HALDOL IM PRN (13:08)
[2019-06-20] MEDS ORDERED: NACL 0.9% 1000 ML 2,000 ML IV ONE (13:08)
--- NOTE | 2019-06-20 13:09 | Emergency Department Report ---
ED General Adult HPI - General Chief complaint: Overdose Stated complaint: AMS Time Seen by Provider: 06/20/19 13:01 Source: police, EMS (ems notes not available at time of chart dictation), RN notes reviewed, old records reviewed Mode of arrival: Stretcher Limitations: Altered Mental Status - History of Present Illness Initial comments: This is a 49-year-old female. As per prior documentation, her past medical history includes hypertension, bipolar, nicotine dependence, schizophrenia, substance abuse, renal insufficiency. The patient is brought to the hospital by EMS for reported overdose. We do not know what the patient overdosed on. We do not know what time the ingestion was. The patient is sleepy, and not able to respond to questions at this time. Apparently, she is also under arrest. As per review of old medical records, patient recently admitted to this hospital for renal insufficiency, and is documented to have signed out AGAINST MEDICAL ADVICE. -: unknown Severity scale (0 -10): 0 Quality: other Consistency: other Improves with: other Worsens with: other - Related Data Previous Rx's Medication Instructions Recorded Last Taken Type Hydralazine HCl 50 mg PO BID #60 tablet 05/04/19 Unknown Rx amLODIPine [Norvasc] 10 mg PO QDAY #30 tablet 05/04/19 Unknown Rx Allergies Allergy/AdvReac Type Severity Reaction Status Date / Time No Known Allergies Allergy Verified 05/04/19 09:50 ED Review of Systems ROS: Stated complaint: AMS Other details as noted in HPI Comment: Unobtainable due to pts medical conditions ED Past Medical Hx - Past Medical History Hx Hypertension: Yes Hx Congestive Heart Failure: No Hx Diabetes: No Hx Psychiatric Treatment: Yes (cocaine abuse, schizophrenia, bipolar) Hx Asthma: No Hx COPD: No Additional medical history: Scoliosis / gallstones - Surgical History Additional Surgical History: Surgery for scoliosis. Hernia repair. 1988 - Social History Smoking Status: Current Every Day Smoker Substance Use Type: Cocaine - Medications Home Medications: Home Medications Medication Instructions Recorded Confirmed Last Taken Type Hydralazine HCl 50 mg PO BID #60 tablet 05/04/19 06/20/19 Unknown Rx amLODIPine [Norvasc] 10 mg PO QDAY #30 tablet 05/04/19 06/20/19 Unknown Rx ED Physical Exam - General Limitations: Altered Mental Status General appearance: in no apparent distress, lethargic - Head Head exam: Present: atraumatic, normocephalic - Eye Eye exam: Present: normal appearance, EOMI - ENT ENT exam: Present: normal exam, normal orophraynx, mucous membranes moist, normal external ear exam - Neck Neck exam: Present: normal inspection. Absent: tenderness, meningismus - Respiratory Respiratory exam: Present: decreased breath sounds. Absent: respiratory distress, wheezes, stridor - Cardiovascular Cardiovascular Exam: Present: regular rate, normal rhythm, normal heart sounds. Absent: bradycardia, tachycardia, irregular rhythm, systolic murmur, diastolic murmur, rubs, gallop - GI/Abdominal GI/Abdominal exam: Present: soft, tenderness, other (there is left upper quadrant tenderness. There is no rebound, guarding or peritoneal sign.). Absent: distended, guarding, rebound, rigid, pulsatile mass - Extremities Exam Extremities exam: Present: normal inspection, full ROM, other (2+ pulses noted in the bilateral upper, lower extremities. Compartments soft. No long bony tenderness. The pelvis is stable.). Absent: pedal edema, joint swelling, calf tenderness - Back Exam Back exam: Present: normal inspection. Absent: tenderness, CVA tenderness (R), CVA tenderness (L), paraspinal tenderness, vertebral tenderness - Neurological Exam Neurological exam: Present: altered, other (there is no facial droop. The patient moans when she is examined. She is noted to be moving 4 extremities intermittently. Detailed neurologic examination not possible secondary to altered mental status.) - Psychiatric Psychiatric exam: Present: other (the patient does not speak in sentences at this time.) - Skin Skin exam: Present: warm, dry, intact, normal color. Absent: rash ED Course Vital Signs 06/20/19 06/20/19 06/20/19 12:07 12:10 12:11 Temperature 98.7 F Pulse Rate 69 Respiratory 18 18 18 Rate Blood Pressure Blood Pressure 142/116 141/101 [Left] O2 Sat by Pulse 98 98 Oximetry 06/20/19 06/20/19 06/20/19 12:34 13:45 14:00 Temperature Pulse Rate 65 59 L Respiratory 14 15 Rate Blood Pressure 158/103 172/116 Blood Pressure [Left] O2 Sat by Pulse 97 98 98 Oximetry 06/20/19 06/20/19 16:41 19:33 Temperature Pulse Rate 78 69 Respiratory 16 Rate Blood Pressure 187/105 Blood Pressure 160/107 [Left] O2 Sat by Pulse 99 97 Oximetry - Reevaluation(s) Reevaluation #1: 06/20/19 14:28 Differential diagnosis, including but not limited to: Intracranial injury, cervical spine injury, overdose, toxic encephalopathy, metabolic encephalopathy, infectious encephalopathy, multifocal encephalopathy, renal insufficiency Assessment and plan: 49-year-old female, who is altered, after reported overdose, afebrile, with reassuring vital signs, moving 4 extremities spontaneously, and protecting her airway at this time. Given altered mental sta tus, unknown time of ingestion, patient not a charcoal candidate. She is placed on a 1013 hold, CT scan of the brain, cervical spine pending, CT scan abdomen and pelvis pending. Screening laboratory studies so far unremarkable, patient not a candidate for specific antidote therapy, laboratory studies also show worsening renal insufficiency, and she will require admission to the hospital once her initial ER workup is being completed. Reevaluation #2: 06/20/19 18:34 Patient more awake. Walking around the ER, and in no acute distress. CT scan of the brain reviewed by myself, do not see any obvious intracranial hemorrhage. Formal CT interpretations pending. Hospital physician is paged to arrange admission. Reevaluation #3: 06/20/19 18:48 Dr Alejandro Haynes accepts Reevaluation #4: 06/20/19 19:53 ct head abdomen, cervical spine negative ED Medical Decision Making - Lab Data Result diagrams: 06/20/19 12:19 06/20/19 12:19 Vital Signs 06/20/19 06/20/19 06/20/19 12:07 12:10 12:11 Temperature 98.7 F Pulse Rate 69 Respiratory 18 18 18 Rate Blood Pressure 142/116 141/101 [Left] O2 Sat by Pulse 98 98 Oximetry Lab Results 06/20/19 06/20/19 06/20/19 Range/Units 12:19 12:19 12:19 WBC (4.5-11.0) K/mm3 RBC (3.65-5.03) M/mm3 Hgb (10.1-14.3) gm/dl Hct (30.3-42.9) % MCV (79-97) fl MCH (28-32) pg MCHC (30-34) % RDW (13.2-15.2) % Plt Count (140-440) K/mm3 Lymph % (Auto) (13.4-35.0) % [place] % (Auto) (0.0-7.3) % Eos % (Auto) (0.0-4.3) % Baso % (Auto) (0.0-1.8) % Lymph # (1.2-5.4) K/mm3 [place] # (0.0-0.8) K/mm3 Eos # (0.0-0.4) K/mm3 Baso # (0.0-0.1) K/mm3 Seg Neutrophils % (40.0-70.0) % Seg Neutrophils # (1.8-7.7) K/mm3 Sodium 144 (137-145) mmol/L Potassium 3.3 L (3.6-5.0) mmol/L Chloride 104.9 (98-107) mmol/L Carbon Dioxide 23 (22-30) mmol/L Anion Gap 19 mmol/L BUN 55 H (7-17) mg/dL Creatinine 2.7 H (0.7-1.2) mg/dL Estimated GFR 23 ml/min BUN/Creatinine Ratio 20 % Glucose 95 (65-100) mg/dL Calcium 9.0 (8.4-10.2) mg/dL Magnesium (1.7-2.3) mg/dL Total Creatine Kinase (30-135) units/L HCG, Qual (Negative) Urine Color (Yellow) Urine Turbidity (Clear) Urine pH (5.0-7.0) Ur Specific [place] (1.003-1.030) Urine Protein (Negative) mg/dL Urine Glucose (UA) (Negative) mg/dL Urine Ketones (Negative) mg/dL Urine Blood (Negative) Urine Nitrite (Negative) Urine Bilirubin (Negative) Urine Urobilinogen (<2.0) mg/dL Ur Leukocyte Esterase (Negative) Urine WBC (Auto) (0.0-6.0) /HPF Urine RBC (Auto) (0.0-6.0) /HPF U Epithel Cells (Auto) (0-13.0) /HPF Salicylates < 0.3 L (2.8-20.0) mg/dL Urine Opiates Screen Urine Methadone Screen Acetaminophen < 5.0 L (10.0-30.0) ug/mL Ur Barbiturates Screen Ur Phencyclidine Scrn Ur Amphetamines Screen U Benzodiazepines Scrn U Marijuana (THC) Screen Plasma/Serum Alcohol (0-0.07) % 06/20/19 06/20/19 06/20/19 Range/Units 12:19 12:19 13:19 WBC 7.8 (4.5-11.0) K/mm3 RBC 5.35 H (3.65-5.03) M/mm3 Hgb 14.2 (10.1-14.3) gm/dl Hct 44.3 H (30.3-42.9) % MCV 83 (79-97) fl MCH 27 L (28-32) pg MCHC 32 (30-34) % RDW 16.4 H (13.2-15.2) % Plt Count 212 (140-440) K/mm3 Lymph % (Auto) 19.7 (13.4-35.0) % [place] % (Auto) 10.6 H (0.0-7.3) % Eos % (Auto) 2.4 (0.0-4.3) % Baso % (Auto) 0.9 (0.0-1.8) % Lymph # 1.5 (1.2-5.4) K/mm3 [place] # 0.8 (0.0-0.8) K/mm3 Eos # 0.2 (0.0-0.4) K/mm3 Baso # 0.1 (0.0-0.1) K/mm3 Seg Neutrophils % 66.4 (40.0-70.0) % Seg Neutrophils # 5.1 (1.8-7.7) K/mm3 Sodium (137-145) mmol/L Potassium (3.6-5.0) mmol/L Chloride (98-107) mmol/L Carbon Dioxide (22-30) mmol/L Anion Gap mmol/L BUN (7-17) mg/dL Creatinine (0.7-1.2) mg/dL Estimated GFR ml/min BUN/Creatinine Ratio % Glucose (65-100) mg/dL Calcium (8.4-10.2) mg/dL Magnesium (1.7-2.3) mg/dL Total Creatine Kinase (30-135) units/L HCG, Qual Negative (Negative) Urine Color (Yellow) Urine Turbidity (Clear) Urine pH (5.0-7.0) Ur Specific [place] (1.003-1.030) Urine Protein (Negative) mg/dL Urine Glucose (UA) (Negative) mg/dL Urine Ketones (Negative) mg/dL Urine Blood (Negative) Urine Nitrite (Negative) Urine Bilirubin (Negative) Urine Urobilinogen (<2.0) mg/dL Ur Leukocyte Esterase (Negative) Urine WBC (Auto) (0.0-6.0) /HPF Urine RBC (Auto) (0.0-6.0) /HPF U Epithel Cells (Auto) (0-13.0) /HPF Salicylates (2.8-20.0) mg/dL Urine Opiates Screen Urine Methadone Screen Acetaminophen (10.0-30.0) ug/mL Ur Barbiturates Screen Ur Phencyclidine Scrn Ur Amphetamines Screen U Benzodiazepines Scrn U Marijuana (THC) Screen Plasma/Serum Alcohol < 0.01 (0-0.07) % 06/20/19 06/20/19 06/20/19 Range/Units 13:19 13:38 13:38 WBC (4.5-11.0) K/mm3 RBC (3.65-5.03) M/mm3 Hgb (10.1-14.3) gm/dl Hct (30.3-42.9) % MCV (79-97) fl MCH (28-32) pg MCHC (30-34) % RDW (13.2-15.2) % Plt Count (140-440) K/mm3 Lymph % (Auto) (13.4-35.0) % [place] % (Auto) (0.0-7.3) % Eos % (Auto) (0.0-4.3) % Baso % (Auto) (0.0-1.8) % Lymph # (1.2-5.4) K/mm3 [place] # (0.0-0.8) K/mm3 Eos # (0.0-0.4) K/mm3 Baso # (0.0-0.1) K/mm3 Seg Neutrophils % (40.0-70.0) % Seg Neutrophils # (1.8-7.7) K/mm3 Sodium (137-145) mmol/L Potassium (3.6-5.0) mmol/L Chloride (98-107) mmol/L Carbon Dioxide (22-30) mmol/L Anion Gap mmol/L BUN (7-17) mg/dL Creatinine (0.7-1.2) mg/dL Estimated GFR ml/min BUN/Creatinine Ratio % Glucose (65-100) mg/dL Calcium (8.4-10.2) mg/dL Magnesium 1.80 (1.7-2.3) mg/dL Total Creatine Kinase 154 H (30-135) units/L HCG, Qual (Negative) Urine Color Yellow (Yellow) Urine Turbidity Slightly-cloudy (Clear) Urine pH 6.0 (5.0-7.0) Ur Specific [place] 1.017 (1.003-1.030) Urine Protein <15 mg/dl (Negative) mg/dL Urine Glucose (UA) 50 (Negative) mg/dL Urine Ketones Neg (Negative) mg/dL Urine Blood Neg (Negative) Urine Nitrite Neg (Negative) Urine Bilirubin Neg (Negative) Urine Urobilinogen < 2.0 (<2.0) mg/dL Ur Leukocyte Esterase Neg (Negative) Urine WBC (Auto) 4.0 (0.0-6.0) /HPF Urine RBC (Auto) 2.0 (0.0-6.0) /HPF U Epithel Cells (Auto) 7.0 (0-13.0) /HPF Salicylates (2.8-20.0) mg/dL Urine Opiates Screen Presumptive negative Urine Methadone Screen Presumptive negative Acetaminophen (10.0-30.0) ug/mL Ur Barbiturates Screen Presumptive negative Ur Phencyclidine Scrn Presumptive negative Ur Amphetamines Screen Presumptive negative U Benzodiazepines Scrn Presumptive negative U Marijuana (THC) Screen Presumptive negative Plasma/Serum Alcohol (0-0.07) % - EKG Data -: EKG Interpreted by Hi Rate: normal - EKG Data 06/20/19 14:29 This is a sinus rhythm, 67 bpm, normal axis, QTC within normal limits, there is high left ventricular voltage, the EKG is abnormal, the EKG is not consistent with ST elevation myocardial infarction. - Radiology Data Radiology results: report reviewed, image reviewed INDICATION / CLINICAL INFORMATION: Overdose and altered mental status. COMPARI SON: 05/04/2019. FINDINGS: SUPPORT DEVICES: None. HEART / MEDIASTINUM: The heart size is borderline with a left ventricular configuration. LUNGS / PLEURA: There is minimal bibasilar subsegmental atelectasis, significantly improved since the prior exam. No pneumothorax. ADDITIONAL FINDINGS: There is a Serrato nadya transfixing the thoracic spine. IMPRESSION: Minimal bibasilar subsegmental atelectasis. No evidence of aspiration pneumonia. Signer Name: Beto Cornejo MD Signed: 06/20/2019 1:31 PM Workstation Name: [id number] Transcribed By: RT Dictated By: Beto Cornejo MD Electronically Authenticated By: Beto Cornejo MD Signed Date/Time: 06/20/19 1331 Critical care attestation.: If time is entered above; I have spent that time in minutes in the direct care o f this critically ill patient, excluding procedure time. ED Disposition Clinical Impression: Schizophrenia, Encephalopathy, Renal insufficiency, Hypokalemia Disposition: OP ADMIT IP TO THIS HOSP Is pt being admited?: Yes Does the pt Need Aspirin: No Condition: Serious
--- NOTE | 2019-06-20 13:35 | XRay Report ---
CHEST 1 VIEW 1:09 PM INDICATION / CLINICAL INFORMATION: Overdose and altered mental status. COMPARISON: 05/04/2019. FINDINGS: SUPPORT DEVICES: None. HEART / MEDIASTINUM: The heart size is borderline with a left ventricular configuration. LUNGS / PLEURA: There is minimal bibasilar subsegmental atelectasis, significantly improved since the prior exam. No pneumothorax. ADDITIONAL FINDINGS: There is a Serrato nadya transfixing the thoracic spine. IMPRESSION: Minimal bibasilar subsegmental atelectasis. No evidence of aspiration pneumonia. Signer Name: Beto Cornejo MD Signed: 06/20/2019 1:31 PM Workstation Name: [id number]
[2019-06-20 13:56] LABS: Bilirubin,Urine NEG (Negative); Blood,Urine NEG (Negative); Color,Urine Yellow (Yellow); Protein,Urine <15 mg/dL mg/dL (Negative); Urobilinogen,Urine < 2.0 mg/dL (<2.0)
[2019-06-20 14:06] LABS: Amphetamine Screen,Urine PRESUMPTIVE NEGATIVE; Benzodiazepines Screen,Urine PRESUMPTIVE NEGATIVE; Cannabinoid Screen,Urine PRESUMPTIVE NEGATIVE; Methadone Screen,Urine PRESUMPTIVE NEGATIVE; Opiate Screen,Urine PRESUMPTIVE NEGATIVE
[2019-06-20 14:58] LABS: Cocaine Screen,Urine PRESUMPTIVE POSITIVE
[2019-06-20] MEDS ORDERED: K-DUR PO ONE ×3 (18:49→20:18)
--- NOTE | 2019-06-20 18:53 | Cat Scan Report ---
CT head/brain wo con INDICATION: Acute altered mental status. TECHNIQUE: Routine CT head without contrast. All CT scans at this location are performed using CT dos e reduction for ALARA by means of automated exposure control. COMPARISON: Head CT dated 02/20/2018. FINDINGS: BRAIN / INTRACRANIAL CONTENTS: No acute hemorrhage, mass effect, midline shift, or hydrocephalus. No appreciable acute large territorial or lacunar infarct. No chronic infarct or focal atrophy. Normal b rain volume and ventricular/sulcal size for age. ORBITS: No significant abnormality of visualized orbits. SINUSES / MASTOIDS: No significant abnormality of visualized sinuses and mastoid air cells. ADDITIONAL FINDINGS: None. IMPRESSION: 1. No acute intracranial abnormality. No adverse change from the prior exam. Signer Name: Wagner Whelan MD Signed: 06/20/2019 6:49 PM Workstation Name: [id number]
--- NOTE | 2019-06-20 19:19 | Cat Scan Report ---
CT of the abdomen and pelvis without contrast INDICATION: Abdominal pain COMPARISON: 03/18/2017 FINDINGS: Lung bases are clear. The liver, spleen, pancreas, adrenal glands and kidneys show no gross abnormalities. No definite gallbladder or biliary tree abnormality. No fluid or adenopathy in the up per abdomen. Spinal fixation hardware is in place. CT of the pelvis shows no evidence of bowel obstruction. Appendix is seen and is normal. No uterine o r adnexal masses. No pelvic fluid or inflammation. IMPRESSION: Negative study Automated exposure control was utilized to diminish radiation dose. Signer Name: Amandeep Andrade MD Signed: 06/20/2019 7:14 PM Workstation Name: [id number]
--- NOTE | 2019-06-20 19:25 | Cat Scan Report ---
CT cervical spine without contrast CLINICAL HISTORY: Altered mental status, found down. FINDINGS: There is mild reversal of the cervical lordosis with multilevel advanced degenerative disc changes at. The findings appear to have progressed from the previous CT of 09/02/2017. There is also mild curvature the cervical spine, convex toward the left with combination of endplate sclerosis and cystic changes. However, there is no definitive CT evidence of acute fracture involving the cervical spine. The posterior spondylosis at C5-6 appears to efface the ventral subarachnoid space at. There is moder ate to marked right neural foraminal narrowing. Milder narrowing is seen on the left. The spondylosis at C6-7 also effaces the ventral subarachnoid space. There appears be mild foraminal narrowing bilaterally at. There is moderate to foraminal narrowing at C7-T1, greater on the right. No definitive at prevertebral soft tissue fluid collections are identified. All CT scans at this locati on are performed using the CT dose reduction for ALARA by means of automated exposure control. IMPRESSION: There is no definitive CT evidence of acute fracture involving the cervical spine. There are multilevel degenerative changes as detailed above. Signer Name: Tino Agosto MD Signed: 06/20/2019 7:20 PM Workstation Name: [id number]
[2019-06-20] MEDS ORDERED: SODIUM CHLORIDE FLUSH SYRINGE 10 ML IV PRN (22:51)
[2019-06-20] MEDS ORDERED: D5NS 1,000 ML IV SCH (23:00)
[2019-06-21] MEDS: PEPCID IV SCH ×2 (00:52→11:18)
--- NOTE | 2019-06-21 07:32 | History and Physical Report ---
History of Present Illness Date of examination: 06/20/19 Date of admission: 06/20/19 18:49 Chief complaint: AMS sec to unknown drugs History of present illness: 49-year-old female with r past medical history of hypertension, bipolar, nicotine dependence, schizophrenia, substance abuse, renal insufficiency brought to the hospital by EMS for reported overdose. We do not know what the patient overdosed on. We do not know what time the ingestion was. The patient is sleepy, and not able to respond to questions at this time. Apparently, she is also under arrest. As per review of old medical records, patient recently admitted to this hospital for renal insufficiency, and is documented to have signed out AGAINST MEDICAL ADVICE. Past Medical History Hypertension Psychiatric Treatment: Yes (cocaine abuse, schizophrenia, bipolar) Additional medical history: Scoliosis / gallstones Surgical History Additional Surgical History: Surgery for scoliosis. Hernia repair. 1988 Social History Smoking Status: Current Every Day Smoker Substance Use Type: Cocaine Family history Htn - Medications Home Medications: Home Medications Medication Instructions Recorded Confirmed Last Taken Type Hydralazine HCl 50 mg PO BID #60 tablet 05/04/19 06/20/19 Unknown Rx amLODIPine [Norvasc] 10 mg PO QDAY #30 tablet 05/04/19 06/20/19 Unknown Rx Medications and Allergies Allergies Allergy/AdvReac Type Severity Reaction Status Date / Time No Known Allergies Allergy Verified 05/04/19 09:50 Home Medications Medication Instructions Recorded Confirmed Last Taken Type Hydralazine HCl 50 mg PO BID #60 tablet 05/04/19 06/20/19 Unknown Rx amLODIPine [Norvasc] 10 mg PO QDAY #30 tablet 05/04/19 06/20/19 Unknown Rx Active Meds: Active Medications Acetaminophen (Tylenol) 650 mg PO Q4H PRN PRN Reason: Pain MILD(1-3)/Fever >100.5/RIVERA Enoxaparin Sodium (Lovenox) 30 mg SUB-Q QDAY@2200 [facility] Famotidine (Pepcid) 20 mg IV QAM [facility] Last Admin: 06/21/19 00:52 Dose: 20 mg Documented by: Haloperidol Lactate (Haldol) 5 mg IM Q6HR PRN PRN Reason: Agitation Dextrose/Sodium Chloride (D5ns) 1,000 mls @ 125 mls/hr IV DIRECT [facility] Lorazepam (Ativan) 2 mg IM Q4HR PRN PRN Reason: Agitation Ondansetron HCl (Zofran) 4 mg IV Q8H PRN PRN Reason: Nausea And Vomiting Sodium Chloride (Sodium Chloride Flush Syringe 10 Ml) 10 ml IV BID [facility] Sodium Chloride (Sodium Chloride Flush Syringe 10 Ml) 10 ml IV PRN PRN PRN Reason: LINE FLUSH Review of Systems All systems: negative Psychiatric: hypersomnia Exam - Constitutional Vitals: Temp Pulse Resp BP Pulse Ox 98.5 F 59 L 20 158/92 97 06/20/19 23:33 06/21/19 06:06 06/21/19 06:06 06/21/19 06:06 06/21/19 06:06 General appearance: Present: no acute distress, well-nourished - EENT Eyes: Present: PERRL ENT: hearing intact, clear oral mucosa - Neck Neck: Present: supple, normal ROM - Respiratory Respiratory effort: normal Respiratory: bilateral: CTA - Cardiovascular Heart rate: 78 Rhythm: regular Heart Sounds: Present: S1 & S2. Absent: rub, click - Extremities Extremities: no ischemia, pulses intact, pulses symmetrical, No edema Peripheral Pulses: within normal limits - Abdominal General gastrointestinal: Present: soft, non-tender, non-distended, normal bowel sounds Female genitourinary: Present: normal - Rectal Rectal Exam: deferred - Integumentary Integumentary: Present: clear, warm, dry - Musculoskeletal Musculoskeletal: generalized weakness - Psychiatric Psychiatric: intact judgment & insight, depressed, other (Lethargic and decreased responsiveness,Arousable,Moves extremities) Results - Labs CBC & Chem 7: 06/20/19 12:19 06/20/19 12:19 Labs: Laboratory Last Values WBC 7.8 K/mm3 (4.5-11.0) 06/20/19 12:19 RBC 5.35 M/mm3 (3.65-5.03) H 06/20/19 12:19 Hgb 14.2 gm/dl (10.1-14.3) 06/20/19 12:19 Hct 44.3 % (30.3-42.9) H 06/20/19 12:19 MCV 83 fl (79-97) 06/20/19 12:19 MCH 27 pg (28-32) L 06/20/19 12:19 MCHC 32 % (30-34) 06/20/19 12:19 RDW 16.4 % (13.2-15.2) H 06/20/19 12:19 Plt Count 212 K/mm3 (140-440) 06/20/19 12:19 Lymph % (Auto) 19.7 % (13.4-35.0) 06/20/19 12:19 Johnson % (Auto) 10.6 % (0.0-7.3) H 06/20/19 12:19 Eos % (Auto) 2.4 % (0.0-4.3) 06/20/19 12:19 Baso % (Auto) 0.9 % (0.0-1.8) 06/20/19 12:19 Lymph # 1.5 K/mm3 (1.2-5.4) 06/20/19 12:19 Johnson # 0.8 K/mm3 (0.0-0.8) 06/20/19 12:19 Eos # 0.2 K/mm3 (0.0-0.4) 06/20/19 12:19 Baso # 0.1 K/mm3 (0.0-0.1) 06/20/19 12:19 Seg Neutrophils % 66.4 % (40.0-70.0) 06/20/19 12:19 Seg Neutrophils # 5.1 K/mm3 (1.8-7.7) 06/20/19 12:19 Sodium 144 mmol/L (137-145) 06/20/19 12:19 Potassium 3.3 mmol/L (3.6-5.0) L 06/20/19 12:19 Chloride 104.9 mmol/L (98-107) 06/20/19 12:19 Carbon Dioxide 23 mmol/L (22-30) 06/20/19 12:19 19 mmol/L 06/20/19 12:19 BUN 55 mg/dL (7-17) H 06/20/19 12:19 2.7 mg/dL (0.7-1.2) H 06/20/19 12:19 Estimated GFR 23 ml/min 06/20/19 12:19 20 % 06/20/19 12:19 Glucose 95 mg/dL (65-100) 06/20/19 12:19 Calcium 9.0 mg/dL (8.4-10.2) 06/20/19 12:19 Magnesium 1.80 mg/dL (1.7-2.3) 06/20/19 13:19 154 units/L (30-135) H 06/20/19 13:19 HCG, Qual Negative (Negative) 06/20/19 13:19 Yellow (Yellow) 06/20/19 13:38 Slightly-cloudy (Clear) 06/20/19 13:38 6.0 (5.0-7.0) 06/20/19 13:38 Ur Specific [place] 1.017 (1.003-1.030) 06/20/19 13:38 <15 mg/dl mg/dL (Negative) 06/20/19 13:38 50 mg/dL (Negative) 06/20/19 13:38 Neg mg/dL (Negative) 06/20/19 13:38 Neg (Negative) 06/20/19 13:38 Neg (Negative) 06/20/19 13:38 Neg (Negative) 06/20/19 13:38 < 2.0 mg/dL (<2.0) 06/20/19 13:38 Ur Leukocyte Esterase Neg (Negative) 06/20/19 13:38 4.0 /HPF (0.0-6.0) 06/20/19 13:38 2.0 /HPF (0.0-6.0) 06/20/19 13:38 U Epithel Cells (Auto) 7.0 /HPF (0-13.0) 06/20/19 13:38 Salicylates < 0.3 mg/dL (2.8-20.0) L 06/20/19 12:19 Presumptive negative 06/20/19 13:38 Presumptive negative 06/20/19 13:38 Acetaminophen < 5.0 ug/mL (10.0-30.0) L 06/20/19 12:19 Ur Barbiturates Screen Presumptive negative 06/20/19 13:38 Ur Phencyclidine Scrn Presumptive negative 06/20/19 13:38 Ur Amphetamines Screen Presumptive negative 06/20/19 13:38 U Benzodiazepines Scrn Presumptive negative 06/20/19 13:38 Presumptive positive 06/20/19 13:38 U Marijuana (THC) Screen Presumptive negative 06/20/19 13:38 Disclamer 06/20/19 13:38 Plasma/Serum Alcohol < 0.01 % (0-0.07) 06/20/19 12:19 Short CBC 06/20/19 Range/Units 12:19 WBC 7.8 (4.5-11.0) K/mm3 Hgb 14.2 (10.1-14.3) gm/dl Hct 44.3 H (30.3-42.9) % Plt Count 212 (140-440) K/mm3 BMP 06/20/19 12:19 Sodium 144 Potassium 3.3 L Chloride 104.9 Carbon Dioxide 23 BUN 55 H Creatinine 2.7 H Glucose 95 Calcium 9.0 Cardiac Enzymes 06/20/19 Range/Units 13:19 Total Creatine Kinase 154 H (30-135) units/L Urine 06/20/19 Range/Units 13:38 Urine Color Yellow (Yellow) Urine pH 6.0 (5.0-7.0) Ur Specific [place] 1.017 (1.003-1.030) Urine Protein <15 mg/dl (Negative) mg/dL Urine Glucose (UA) 50 (Negative) mg/dL Assessment and Plan Advance Directives: Yes (Full code) VTE prophylaxis?: Chemical Plan of care discussed with patient/family: No - Patient Problems (1) Encephalopathy Current Visit: Yes Status: Acute Plan to address problem: Sec to substance abuse Probably Cocaine IV Fluids for now consult (2) Hypokalemia Current Visit: Yes Status: Acute Plan to address problem: Supplemented (3) Cocaine abuse Current Visit: Yes Status: Chronic Plan to address problem: Patient to be counselled Could not developmental training counselor given her mental status (4) HTN (hypertension) Current Visit: Yes Status: Chronic Qualifiers: Hypertension type: essential hypertension Qualified Code(s): I10 - Essential (primary) hypertension Plan to address problem: Cont Amloodipine and Hydralazine (5) DVT prophylaxis Current Visit: No Status: Acute Plan to address problem: On Lovenox and GI prophylaxis
[2019-06-21] MEDS ORDERED: K-DUR PO ONE (08:00)
[2019-06-21] MEDS ORDERED: NON-FORMULARY (Hydralazine Hcl [Hydralazine Hcl] 50 MG) PO SCH (10:00)
[2019-06-21] MEDS: SODIUM CHLORIDE FLUSH SYRINGE 10 ML IV SCH ×2 (11:18→22:15)
[2019-06-21] MEDS: NORVASC PO SCH (11:18)
[2019-06-21] MEDS: APRESOLINE PO SCH ×2 (11:18→22:00)
--- NOTE | 2019-06-21 14:39 | Consultation ---
History of Present Illness - Reason for Consult Consult date: 06/21/19 Reason for consult: Mental Health Evaluation Requesting physician: AARON LIZ - Chief Complaint Chief complaint: "I wasn't trying t o kill myself" - History of Present Psychiatric Illness 49 y.o. AA female who presented to the ER for AMS from overdosing on unknown pills. Today the patient was calm and cooperative during the assessment. She stated that she ingested unknown pills when approached by the police. She stated that she was trying to sale the pills on the street so she can buy crack cocaine. She stated that she didn't want to be caught with the pills in her possession, so she "swallowed them" per the patient. She denies that she was trying to kill herself. She denies a hx of mental health other than a being on crack cocaine for several years. She denies SI/HI's and AVH's. She denies erratic sleep and a poor appetite. She denies alcohol consumption (etoh). Medications and Allergies Allergies Allergy/AdvReac Type Severity Reaction Status Date / Time No Known Allergies Allergy Verified 05/04/19 09:50 Home Medications Medication Instructions Recorded Confirmed Last Taken Type Hydralazine HCl 50 mg PO BID #60 tablet 05/04/19 06/20/19 Unknown Rx amLODIPine [Norvasc] 10 mg PO QDAY #30 tablet 05/04/19 06/20/19 Unknown Rx Active Meds: Active Medications Acetaminophen (Tylenol) 650 mg PO Q4H PRN PRN Reason: Pain MILD(1-3)/Fever >100.5/RIVERA Amlodipine Besylate (Norvasc) 10 mg PO QDAY [facility] Last Admin: 06/21/19 11:18 Dose: Not Given Documented by: Enoxaparin Sodium (Lovenox) 30 mg SUB-Q QDAY@2200 [facility] Famotidine (Pepcid) 20 mg IV QAM [facility] Last Admin: 06/21/19 11:18 Dose: Not Given Documented by: Haloperidol Lactate (Haldol) 5 mg IM Q6HR PRN PRN Reason: Agitation Hydralazine HCl (Apresoline) 50 mg PO BID [facility] Last Admin: 06/21/19 11:18 Dose: Not Given Documented by: Dextrose/Sodium Chloride (D5ns) 1,000 mls @ 125 mls/hr IV DIRECT [facility] Lorazepam (Ativan) 2 mg IM Q4HR PRN PRN Reason: Agitation Ondansetron HCl (Zofran) 4 mg IV Q8H PRN PRN Reason: Nausea And Vomiting Sodium Chloride (Sodium Chloride Flush Syringe 10 Ml) 10 ml IV BID [facility] Last Admin: 06/21/19 11:18 Dose: 10 ml Documented by: Sodium Chloride (Sodium Chloride Flush Syringe 10 Ml) 10 ml IV PRN PRN PRN Reason: LINE FLUSH Past psychiatric history - Past Medical History Past Medical History: No medical history Past Surgical History: No surgical history - past Psychiatric treatment and history psychiatric treatment history: Hx of cocaine abuse. Denies a fam psy hx. - Social History Social history: lives with family Mental Status Exam - Vital signs Last Vital Signs Temp 98.5 F 06/20/19 23:33 Pulse 59 L 06/21/19 06:06 Resp 20 06/21/19 06:06 BP 158/92 06/21/19 06:06 Pulse Ox 97 06/21/19 06:06 - Exam Narrative exam: MSE: Appearance: calm, cooperative Behavior: regular eye contact Speech: regular rate and tone Mood: "okay" Affect: congruent to mood Thought Process: circumstantial Thought Content: denies SI/HI's and AVH's Motor Activity: sitting up in bed Cognition: A/O x3 Insight: fair Judgment: variable Results Result Diagrams: 06/20/19 12:19 06/20/19 12:19 All other labs normal. Assessment and Plan Assessment and plan: Impression: Per the patient, the patient ingested unknown pills prior to being arrested. Substance Use DO (cocaine). The patient was calm and cooperative during the assessment. Recommendation/Plan:Continue 1013 and gather collateral information form of [facility]. Dispo: Once collateral information is obtained, proper dispo will be determines. Will staff with Dr Abe Crane.
--- NOTE | 2019-06-21 15:11 | Progress Note ---
Assessment and Plan /Acute toxic Encephalopathy Sec to substance abuse Probably Cocaine IV Fluids for now MH consult / Hypokalemia Supplemented / Cocaine abuse Patient to be counselled Could not college and career counselor given her mental status / HTN (hypertension) Cont Amloodipine and Hydralazine if cont to refuse meds then will do clonidine patch and hydralazine iv / DVT prophylaxis On Lovenox and GI prophylaxis Brief History: 49-year-old female with r past medical history of hypertension, bipolar, nicotine dependence, schizophrenia, substance abuse, renal insufficiency brought to the hospital by EMS for reported overdose. Radiological data: CT cervical spine: There is no definitive CT evidence of acute fracture involving the cervical spine. There are multilevel degenerative changes as detailed above. CT abdomen/pelvis: Negative study. Hospitalist Physical exam: GENERAL: well-developed and well-nourished lying on bed appeared to be in no discomfort. HEENT: Normocephalic. Atraumatic. No conjunctival congestion or icterus. Patient has moist mucous membranes. NECK: Supple. Trachea midline. CHEST/LUNGS: Clear to auscultated bilaterally, breathing nonlabored. No wheezes crackles or rhonchi. HEART/CARDIOVASCULAR: Regular in rate and rhythm. S1 and S2 positive. ABDOMEN: Abdomen is soft, nontender. Patient has normal bowel sounds. SKIN: There is no rash. Warm and dry. NEURO: No focal motor deficit. Follows command. MUSCULOSKELETAL: No joint effusion or tenderness. EXTRIMITY: No edema, no cyanosis or clubbing. PSYCH: Cooperative. Subjective Date of service: 06/21/19 Interval history: Patient seen and examined. Medical records and medication list reviewed. No acute event overnight noted by the RN. Patient is tolerating diet. Almost nonverbal and refused to medications and labs Discussed plan of care at bedside with patient. Objective - Constitutional Vitals: Vital Signs - 12hr 06/21/19 06:06 Pulse Rate 59 L Respiratory 20 Rate Blood Pressure 158/92 [Left] O2 Sat by Pulse 97 Oximetry - Labs CBC & Chem 7: 06/20/19 12:19 06/20/19 12:19
[2019-06-21] MEDS: TYLENOL PO PRN (18:47)
[2019-06-21] MEDS: ZOFRAN IV PRN (18:48)
[2019-06-21] MEDS: LOVENOX SUB-Q SCH (22:15)
--- NOTE | 2019-06-21 23:23 | Event Note ---
<SYDNEE ABDI - Last Filed: 06/21/19 23:22> Date: 06/21/19 Pt is refusing all meds and lab draws tonight <ALVIN SANTILLAN - Last Filed: 06/22/19 06:35> Patient is mentally ill, on 1013. Nurse practitioners and pump house operator spoke to the patient. Patient maintains rates to refuse. day team and psychiatry to re-evaluate patient in the morning
[2019-06-22] MEDS: TYLENOL PO PRN (07:02)
[2019-06-22] MEDS: ATIVAN IM PRN ×2 (07:06→16:09)
[2019-06-22] MEDS: ZOFRAN IV PRN (07:08)
[2019-06-22] MEDS: APRESOLINE IV PRN (08:39)
[2019-06-22] MEDS ORDERED: CATAPRES-TTS PATCH TD SCH (10:00)
[2019-06-22] MEDS: NORVASC PO SCH (11:36)
[2019-06-22] MEDS: APRESOLINE PO SCH ×2 (11:36→22:17)
[2019-06-22] MEDS: SODIUM CHLORIDE FLUSH SYRINGE 10 ML IV SCH ×2 (11:37→22:17)
[2019-06-22] MEDS: PEPCID IV SCH (11:37)
--- NOTE | 2019-06-22 12:42 | Progress Note ---
Assessment and Plan /Acute toxic Encephalopathy, resolved Sec to substance abuse and drug overdose Cannot r/o acute psychosis MH consulted, on 101 / Hypokalemia Supplemented / Cocaine abuse Patient to be counselled Could not after school counselor given her refusal / HTN (hypertension) Cont Amloodipine and Hydralazine - she is refusing start on clonidine patch and hydralazine iv / DVT prophylaxis On Lovenox and GI prophylaxis Brief History: 49-year-old female with r past medical history of hypertension, bipolar, nicotine dependence, schizophrenia, substance abuse, renal insufficiency brought to the hospital by EMS for reported overdose. Radiological data: CT cervical spine: There is no definitive CT evidence of acute fracture involving the cervical spine. There are multilevel degenerative changes as detailed above. CT abdomen/pelvis: Negative study. Hospitalist Physical exam: GENERAL: well-developed obese lying on bed appeared to be in no discomfort. HEENT: Normocephalic. Atraumatic. No conjunctival congestion or icterus. Patient has moist mucous membranes. NECK: Supple. Trachea midline. CHEST/LUNGS: Clear to auscultated bilaterally, breathing nonlabored. No wheezes crackles or rhonchi. HEART/CARDIOVASCULAR: Regular in rate and rhythm. S1 and S2 positive. ABDOMEN: Abdomen is soft, nontender. Patient has normal bowel sounds. SKIN: There is no rash. Warm and dry. NEURO: No focal motor deficit. Follows command. MUSCULOSKELETAL: No joint effusion or tenderness. EXTRIMITY: No edema, no cyanosis or clubbing. PSYCH: flat affect. Subjective Date of service: 06/22/19 Interval history: Patient seen and examined. Medical records and medication list reviewed. No acute event overnight noted by the RN. Patient is tolerating diet. Almost nonverbal and keep refusing medications Objective - Constitutional Vitals: Vital Signs - 12hr 06/22/19 06/22/19 06/22/19 03:00 08:00 08:39 Pulse Rate 72 72 Respiratory 20 Rate Blood Pressure 179/124 Blood Pressure 179/124 [Left] 06/22/19 09:55 Pulse Rate 75 Respiratory Rate Blood Pressure Blood Pressure 150/97 [Left] - Labs CBC & Chem 7: 06/20/19 12:19 06/20/19 12:19
--- NOTE | 2019-06-22 13:29 | Progress Note ---
Subjective - Reason for Consult Consult date: 06/22/19 Reason for consult: Psychiatry Follow-up - Chief Complaint Chief complaint: "What do you want" 49 y.o. AA female who presented to the ER for AMS from overdosing on unknown pills. Today the patient was irritable during the assessment. She did provide me the provider her brother's (Matt) numbers [phone]. Attempted to asked the patient more questions about her mental health, she stated that she did not want to answer the questions. No gestures of SI/HI's. Mental Status Exam - Vital signs Last Vital Signs Temp 97.6 F 06/22/19 07:41 Pulse 75 06/22/19 09:55 Resp 20 06/22/19 07:41 BP 150/97 06/22/19 09:55 Pulse Ox 89 06/22/19 07:40 - Exam Narrative exam: Unable to complete the MSE because the patient refused to cooperate. Assessment and Plan Impression: Per the patient, the patient ingested unknown pills prior to being arrested. Substance Use DO (cocaine). The patient was irritable during the assessment. Recommendation/Plan: Continue 1013. Attempted to call the patient's brother "Matt" at [phone], no answer. Dispo: Once collateral information is gathered, proper dispo will be determined. Will staff with Dr Abe Crane.
[2019-06-22] MEDS: LOVENOX SUB-Q SCH (22:17)
[2019-06-23] MEDS: NORVASC PO SCH (10:15)
[2019-06-23] MEDS: SODIUM CHLORIDE FLUSH SYRINGE 10 ML IV SCH ×2 (10:15→21:21)
[2019-06-23] MEDS: PEPCID IV SCH ×2 (10:15→21:27)
[2019-06-23] MEDS: APRESOLINE PO SCH ×2 (10:15→21:20)
--- NOTE | 2019-06-23 13:00 | Discharge Summary ---
Providers - Providers Date of Admission: 06/22/19 10:03 Date of discharge: 06/24/19 Attending physician: NOLVIA LEDESMA 06/20/19 13:07 Consult to Mental Health [CONS] Urgent Reason For Exam: psych Place consult to:: assistant editor vocational counselor Notified:: awaiting call back 06/20/19 22:55 Consult to Mental Health [CONS] Routine Reason For Exam: polysubstance abuse Place consult to:: y Notified:: elinor monroe [facility] Hospitalization Condition: Serious Pertinent studies: Abdomen/pelvis CT cervical spine CT head CT CXR Hospital course: 49-year-old female with r past medical history of hypertension, bipolar, nicotine dependence, schizophrenia, substance abuse, renal insufficiency brought to the hospital by EMS for reported overdose. Radiological data: CT cervical spine: There is no definitive CT evidence of acute fracture involving the cervical spine. There are multilevel degenerative changes as detailed above. CT abdomen/pelvis: Negative study. Discharge diagnosis: /Acute toxic Encephalopathy, resolved Sec to substance abuse and drug overdose consulted, placed on 1013 tolerating diet, no acute issue - no SI Psych cleared for d/c / Hypokalemia, Supplemented - refused repeat lab check / Cocaine abuse Patient counseled / HTN (hypertension), uncontrolled Cont Amlodipine and Hydralazine - given prescription, and recommended outpt f/u / DVT prophylaxis On Lovenox and GI prophylaxis Disposition: medically stable for d/c. Follow up with [facility] for outpatient psy services. Hospitalist Physical exam: GENERAL: well-developed obese lying on bed appeared to be in no discomfort. HEENT: Normocephalic. Atraumatic. No conjunctival congestion or icterus. Patient has moist mucous membranes. NECK: Supple. Trachea midline. CHEST/LUNGS: Clear to auscultated bilaterally, breathing nonlabored. No wheezes crackles or rhonchi. HEART/CARDIOVASCULAR: Regular in rate and rhythm. S1 and S2 positive. ABDOMEN: Abdomen is soft, nontender. Patient has normal bowel sounds. SKIN: There is no rash. Warm and dry. NEURO: No focal motor deficit. Follows command. MUSCULOSKELETAL: No joint effusion or tenderness. EXTRIMITY: No edema, no cyanosis or clubbing. PSYCH: normal affect. Disposition: - TO HOME OR SELFCARE Time spent for discharge: 34 minutes Core Measure Documentation - Palliative Care Palliative Care/ Comfort Measures: Not Applicable - Core Measures Any of the following diagnoses?: none Exam - Constitutional Vitals: Temp Pulse Resp BP Pulse Ox 98.0 F 75 18 170/124 89 06/22/19 17:46 06/22/19 09:55 06/22/19 17:46 06/22/19 17:46 06/22/19 07:40 Plan Activity: advance as tolerated Weight Bearing Status: Weight Bear as Tolerated Diet: low fat, low salt Special Instructions: record daily BP diary Follow up with: Jose L Byers [facility] [Outside] - 06/26/19 7:45 am (Tuesday - Tuesday 8:00am - 5:00pm. Walk-In only Must arrive at 7:45 as available slots are first come, first served. To be eligible for services, you must bring the following with you: 1. [place] - Issued State ID 2. Proof of Residence 3. Proof of Income 4. Insurance Cards 5. Referral documents and/or hospital discharge papers.) [facility] [Primary Care Provider[facility] - 3-5 Days LATOYA ALMANZA MD [Staff Physician] - 7 Days Prescriptions: Hydralazine HCl 50 mg PO BID #60 tablet amLODIPine [Norvasc] 10 mg PO QDAY #30 tablet
--- NOTE | 2019-06-23 17:51 | Progress Note ---
Subjective - Reason for Consult Consult date: 06/23/19 Reason for consult: follow up - Chief Complaint Chief complaint: "Who are you?" 49 y.o. AA female who presented to the ER for AMS from overdosing on unknown pills. She states she was surrounded by the police and did not want to go to intermediate. She said she swallowed the pills to keep from getting into legal trouble. She says she has a severe crack addiction and needs [facility] residential help. She would not discuss suicidal or homicidal ideation. She says her mother would say that she needs help also. Mental Status Exam - Vital signs Last Vital Signs Temp 98.0 F 06/22/19 17:46 Pulse 75 06/22/19 09:55 Resp 18 06/22/19 17:46 BP 170/124 06/22/19 17:46 Pulse Ox 89 06/22/19 07:40 - Exam Orientation: time, place, person Affect: depressed Mood: congruent with affect Thought content: other (would not discuss SI/HI) Thought Process: Intact Perceptions: none Speech: normal rate and pattern Concentration: distractible Motor activity: normal Level of consciousness: alert Memory: Intact Sleep Symptoms: Difficulty Falling Asleep Appetite: increased Interaction: guarded Assessment and Plan Impression: Per the patient, the patient ingested unknown pills prior to being arrested. Substance Use DO (cocaine). She requests help for addiction but would not discuss SI/HI Recommendation/Plan: Continue 1013. consult forensic social worker-patient is homeless She wants to go to [facility] Dispo: inpatient psychiatric treatment Will staff with Dr Abe Madera.
[2019-06-23] MEDS: TYLENOL PO PRN (21:27)
[2019-06-23] MEDS: LOVENOX SUB-Q SCH (21:41)
[2019-06-24] MEDS: TYLENOL PO PRN ×2 (06:24→21:44)
[2019-06-24] MEDS: NORVASC PO SCH (10:10)
[2019-06-24] MEDS: APRESOLINE PO SCH ×2 (10:11→21:41)
[2019-06-24] MEDS: PEPCID IV SCH (10:12)
[2019-06-24] MEDS: SODIUM CHLORIDE FLUSH SYRINGE 10 ML IV SCH ×2 (10:12→21:42)
--- NOTE | 2019-06-24 11:59 | Progress Note ---
Assessment and Plan /Acute toxic Encephalopathy, resolved Sec to substance abuse and drug overdose MH consulted, placed on 1013 tolerating diet, no acute issue - no SI / Hypokalemia, Supplemented - refused lab check / Cocaine abuse Patient counseled / HTN (hypertension), uncontrolled Cont Amloodipine and Hydralazine - if refuse po meds then will cont clonidine patch and hydralazine iv / DVT prophylaxis On Lovenox and GI prophylaxis Medically stable for d/c Brief History: 49-year-old female with r past medical history of hypertension, bipolar, nicotine dependence, schizophrenia, substance abuse, renal insufficiency brought to the hospital by EMS for reported overdose. Radiological data: CT cervical spine: There is no definitive CT evidence of acute fracture involving the cervical spine. There are multilevel degenerative changes as detailed above. CT abdomen/pelvis: Negative study. Hospitalist Physical exam: GENERAL: well-developed obese lying on bed appeared to be in no discomfort. HEENT: Normocephalic. Atraumatic. No conjunctival congestion or icterus. Patient has moist mucous membranes. NECK: Supple. Trachea midline. CHEST/LUNGS: Clear to auscultated bilaterally, breathing nonlabored. No wheezes crackles or rhonchi. HEART/CARDIOVASCULAR: Regular in rate and rhythm. S1 and S2 positive. ABDOMEN: Abdomen is soft, nontender. Patient has normal bowel sounds. SKIN: There is no rash. Warm and dry. NEURO: No focal motor deficit. Follows command. MUSCULOSKELETAL: No joint effusion or tenderness. EXTRIMITY: No edema, no cyanosis or clubbing. PSYCH: flat affect. Subjective Date of service: 06/23/19 Interval history: Patient seen and examined. Medical records and medication list reviewed. No acute event overnight noted by the RN. Patient is eating lunch, counselled not to refuse BP meds Interested for drug rehab Denies SI Objective - Constitutional Vitals: Vital Signs - 12hr 06/24/19 06/24/19 06/24/19 05:00 06:24 10:10 Temperature 98.6 F Pulse Rate 64 73 Respiratory 18 18 Rate Blood Pressure 166/106 Blood Pressure 151/111 [Left] O2 Sat by Pulse 98 Oximetry 06/24/19 10:11 Temperature Pulse Rate 73 Respiratory Rate Blood Pressure 166/106 Blood Pressure [Left] O2 Sat by Pulse Oximetry - Labs CBC & Chem 7: 06/20/19 12:19 06/20/19 12:19
--- NOTE | 2019-06-24 16:50 | Progress Note ---
Subjective - Reason for Consult Consult date: 06/24/19 Reason for consult: Psychiatry Follow-up - Chief Complaint Chief complaint: "I have learned my lesson" 49 y.o. AA female who presented to the ER for AMS from overdosing on unknown pills. She states she was surrounded by the police and did not want to go to long-term. Today the patient was calm and cooperative during the assessment. Per collateral information from the patient's mother Bre Huitron at [phone], she stated that she was aware of her daughter's actions. She stated that she feel like the patient was scared because of the situation she was in reference going to long-term. She denies that the patient was trying to kill herself. She denies any previous suicide attempts by the patient in the past. The patient is adamant that she will seek rehab services when discharged. She denies SI/HI's and AVH's. Mental Status Exam - Vital signs Last Vital Signs Temp 98.6 F 06/24/19 05:00 Pulse 73 06/24/19 10:11 Resp 18 06/24/19 06:24 BP 166/106 06/24/19 10:11 Pulse Ox 98 06/24/19 05:00 - Exam Narrative exam: MSE: Appearance: calm, cooperative Behavior: regular eye contact Speech: regular rate and tone Mood: "okay" Affect: congruent to mood Thought Process: logical Thought Content: denies SI/HI's and AVH's Motor Activity: sitting up in bed Cognition: A/O x3 Insight: appropriate Judgment: appropriate Assessment and Plan Impression: Substance Use DO (cocaine). Today the patient was calm and co operative during the assessment. The patient is no threat to self. Recommendation/Plan: Rescind 1013. Discussed the importance to abstain from recreational drug use, she verbalized understanding. Case Mgmt informed, the patient will need assistance with placement when discharged. Dispo: The patient can follow up with [facility] for outpatient psy services. Will staff with Dr Abe Crane.
[2019-06-24] MEDS: APRESOLINE IV PRN ×2 (19:03→20:24)
[2019-06-24] MEDS: LOVENOX SUB-Q SCH (21:48)
[2019-06-24 22:57] VITALS: BP 142/87
== END 2019-06-24 23:58 | disposition home or self-care (01) | DRG 917 ==
LOC: ED 12:02 → 3A 18:49 → OBSVTOIN 06-22 10:03
PROVIDERS: ADMIT Internal Medicine; ATTEND Internal Medicine
DX: T50.991A Poisoning by other drugs, medicaments and biological substances, accidental (unintentional), initial encounter (principal); G92 Toxic encephalopathy; F14.10 Cocaine abuse, uncomplicated; N28.9 Disorder of kidney and ureter, unspecified; I10 Essential (primary) hypertension; F31.9 Bipolar disorder, unspecified; F17.200 Nicotine dependence, unspecified, uncomplicated; F20.9 Schizophrenia, unspecified; T40.5X5A Adverse effect of cocaine, initial encounter; E87.6 Hypokalemia; Z82.49 Family history of ischemic heart disease and other diseases of the circulatory system; Z79.899 Other long term (current) drug therapy; Y92.89 Other specified places as the place of occurrence of the external cause; Z71.51 Drug abuse counseling and surveillance of drug abuser
CPT/HCPCS: 36415; 70450; 71045; 72125; 74176; 80048; 80307; 80320; 81001; 82550; 83735; 84703; 85025; 93005; 93010; 96372; 96374; 96375; G0378; G0480; J0360; J1650; J2060; J2405; J7030

== ENCOUNTER 2019-07-03 16:55 | Emergency (ER) | payer MEDICAID ==
[2019-07-03] MEDS ORDERED: ZOFRAN IV ONE (17:03)
[2019-07-03] MEDS ORDERED: NACL 0.9% 1000 ML 1,000 ML IV ONE (17:03)
[2019-07-03] MEDS ORDERED: ATIVAN IV ONE (17:07)
--- NOTE | 2019-07-03 17:11 | Emergency Department Report ---
ED Altered Mental Status HPI - General Chief Complaint: Overdose Stated Complaint: OVERDOSE/UNRESPONSIVE Time Seen by Provider: 07/03/19 17:01 Source: EMS Mode of arrival: Stretcher Limitations: No Limitations - History of Present Illness Initial Comments: Mrs. Farfan is a 49-year-old female with a history of hypertension, cocaine abuse, bipolar disorder, schizophrenia, COPD who presents with decreased level of consciousness. A bystander called 911. Patient appeared passed out out of the anabaptism. Bystanders did not know the patient. However she did have discharge paperwork from this hospital after recent evaluation here. She was revived with 2 mg of naloxone provided intranasally. Police was able to confirm to EMS that she has a history of drug abuse. Currently the patient is thrashing about the bed. She is actively vomiting holding emesis bag. She has purposeful movement but will not provide any history. According to recent discharge summary and she was diagnosed and treated for acute toxic encephalopathy due to cocaine abuse. Previously admitted for hypertensive emergency and encephalopahty in 2018. MD Complaint: altered mental status -: This afternoon Severity: severe Context: drug abuse, other (bipolar disorder) - Related Data Previous Rx's Medication Instructions Recorded Last Taken Type Hydralazine HCl 50 mg PO BID #60 tablet 06/23/19 Unknown Rx amLODIPine [Norvasc] 10 mg PO QDAY #30 tablet 06/23/19 Unknown Rx Allergies Allergy/AdvReac Type Severity Reaction Status Date / Time No Known Allergies Allergy Verified 05/04/19 09:50 ED Review of Systems ROS: Stated complaint: OVERDOSE/UNRESPONSIVE Other details as noted in HPI Comment: Unobtainable due to pts medical conditions (altered mental status) ED Past Medical Hx - Past Medical History Previous Medical History?: Yes Hx Hypertension: Yes Hx Congestive Heart Failure: No Hx Diabetes: No Hx Psychiatric Treatment: Yes (cocaine abuse, schizophrenia, bipolar) Hx Asthma: No Hx COPD: No Hx HIV: No Additional medical history: Scoliosis / gallstones - Surgical History Past Surgical History?: Yes Additional Surgical History: Surgery for scoliosis. Hernia repair. 1988 - Social History Smoking Status: Unknown if ever smoked - Medications Home Medications: Home Medications Medication Instructions Recorded Confirmed Last Taken Type Hydralazine HCl 50 mg PO BID #60 tablet 06/23/19 07/03/19 Unknown Rx amLODIPine [Norvasc] 10 mg PO QDAY #30 tablet 06/23/19 07/03/19 Unknown Rx ED Physical Exam - General Limitations: No Limitations General appearance: alert, appears intoxicated, other (thrashing about the bed, actively retching) - Head Head exam: Present: atraumatic, normocephalic - Eye Eye exam: Present: normal appearance. Absent: scleral icterus, conjunctival injection - ENT ENT exam: Present: mucous membranes moist - Neck Neck exam: Present: normal inspection, full ROM - Respiratory Respiratory exam: Present: normal lung sounds bilaterally. Absent: respiratory distress, wheezes, rales, rhonchi - Cardiovascular Cardiovascular Exam: Present: regular rate, normal rhythm, normal heart sounds. Absent: systolic murmur, diastolic murmur, rubs, gallop - GI/Abdominal GI/Abdominal exam: Present: soft, normal bowel sounds. Absent: distended, tenderness, guarding, rebound - Extremities Exam Extremities exam: Present: normal inspection, other (moves all extremities) - Neurological Exam Neurological exam: Present: alert, altered - Psychiatric Psychiatric exam: Present: flat affect - Skin Skin exam: Present: warm, dry, intact, normal color. Absent: rash ED Course Vital Signs 07/03/19 07/03/19 07/03/19 17:14 18:16 20:52 Temperature 98 F Pulse Rate 60 78 Respiratory 16 16 Rate Blood Pressure 149/93 Blood Pressure 204/135 198/130 149/93 [Right] O2 Sat by Pulse 100 100 Oximetry - Lab Data Result diagrams: 07/03/19 17:12 07/03/19 17:12 Lab Results 07/03/19 07/03/19 07/03/19 Range/Units 17:12 17:12 17:12 WBC 7.6 (4.5-11.0) K/mm3 RBC 5.08 H (3.65-5.03) M/mm3 Hgb 13.4 (10.1-14.3) gm/dl Hct 41.8 (30.3-42.9) % MCV 82 (79-97) fl MCH 26 L (28-32) pg MCHC 32 (30-34) % RDW 16.8 H (13.2-15.2) % Plt Count 230 (140-440) K/mm3 Lymph % (Auto) 19.5 (13.4-35.0) % Robertson % (Auto) 8.2 H (0.0-7.3) % Eos % (Auto) 1.1 (0.0-4.3) % Baso % (Auto) 0.7 (0.0-1.8) % Lymph # 1.5 (1.2-5.4) K/mm3 Robertson # 0.6 (0.0-0.8) K/mm3 Eos # 0.1 (0.0-0.4) K/mm3 Baso # 0.1 (0.0-0.1) K/mm3 Seg Neutrophils % 70.5 H (40.0-70.0) % Seg Neutrophils # 5.4 (1.8-7.7) K/mm3 Sodium 137 (137-145) mmol/L Potassium 3.5 L (3.6-5.0) mmol/L Chloride 99.7 (98-107) mmol/L Carbon Dioxide 21 L (22-30) mmol/L Anion Gap 20 mmol/L BUN 17 (7-17) mg/dL Creatinine 1.9 H (0.7-1.2) mg/dL Estimated GFR 34 ml/min BUN/Creatinine Ratio 9 % Glucose 97 (65-100) mg/dL Calcium 9.7 (8.4-10.2) mg/dL Total Bilirubin 0.40 (0.1-1.2) mg/dL AST 13 (5-40) units/L ALT 12 (7-56) units/L Alkaline Phosphatase 64 (35-129) units/L Total Protein 7.8 (6.3-8.2) g/dL Albumin 4.3 (3.9-5) g/dL Albumin/Globulin Ratio 1.2 % HCG, Qual (Negative) Urine Color (Yellow) Urine Turbidity (Clear) Urine pH (5.0-7.0) Ur Specific [place] (1.003-1.030) Urine Protein (Negative) mg/dL Urine Glucose (UA) (Negative) mg/dL Urine Ketones (Negative) mg/dL Urine Blood (Negative) Urine Nitrite (Negative) Urine Bilirubin (Negative) Urine Urobilinogen (<2.0) mg/dL Ur Leukocyte Esterase (Negative) Urine WBC (Auto) (0.0-6.0) /HPF Urine RBC (Auto) (0.0-6.0) /HPF U Epithel Cells (Auto) (0-13.0) /HPF Urine Bacteria (Auto) (Negative) /HPF Urine Mucus /HPF Urine Sperm (FISH ICER) /HPF Salicylates < 0.3 L (2.8-20.0) mg/dL Urine Opiates Screen Urine Methadone Screen Acetaminophen (10.0-30.0) ug/mL Ur Barbiturates Screen Ur Phencyclidine Scrn Ur Amphetamines Screen U Benzodiazepines Scrn Urine Cocaine Screen U Marijuana (THC) Screen Drugs of Abuse Note Plasma/Serum Alcohol (0-0.07) % 07/03/19 07/03/19 07/03/19 Range/Units 17:12 17:12 17:12 WBC (4.5-11.0) K/mm3 RBC (3.65-5.03) M/mm3 Hgb (10.1-14.3) gm/dl Hct (30.3-42.9) % MCV (79-97) fl MCH (28-32) pg MCHC (30-34) % RDW (13.2-15.2) % Plt Count (140-440) K/mm3 Lymph % (Auto) (13.4-35.0) % Robertson % (Auto) (0.0-7.3) % Eos % (Auto) (0.0-4.3) % Baso % (Auto) (0.0-1.8) % Lymph # (1.2-5.4) K/mm3 Robertson # (0.0-0.8) K/mm3 Eos # (0.0-0.4) K/mm3 Baso # (0.0-0.1) K/mm3 Seg Neutrophils % (40.0-70.0) % Seg Neutrophils # (1.8-7.7) K/mm3 Sodium (137-145) mmol/L Potassium (3.6-5.0) mmol/L Chloride (98-107) mmol/L Carbon Dioxide (22-30) mmol/L Anion Gap mmol/L BUN (7-17) mg/dL Creatinine (0.7-1.2) mg/dL Estimated GFR ml/min BUN/Creatinine Ratio % Glucose (65-100) mg/dL Calcium (8.4-10.2) mg/dL Total Bilirubin (0.1-1.2) mg/dL AST (5-40) units/L ALT (7-56) units/L Alkaline Phosphatase (35-129) units/L Total Protein (6.3-8.2) g/dL Albumin (3.9-5) g/dL Albumin/Globulin Ratio % HCG, Qual Negative (Negative) Urine Color (Yellow) Urine Turbidity (Clear) Urine pH (5.0-7.0) Ur Specific [place] (1.003-1.030) Urine Protein (Negative) mg/dL Urine Glucose (UA) (Negative) mg/dL Urine Ketones (Negative) mg/dL Urine Blood (Negative) Urine Nitrite (Negative) Urine Bilirubin (Negative) Urine Urobilinogen (<2.0) mg/dL Ur Leukocyte Esterase (Negative) Urine WBC (Auto) (0.0-6.0) /HPF Urine RBC (Auto) (0.0-6.0) /HPF U Epithel Cells (Auto) (0-13.0) /HPF Urine Bacteria (Auto) (Negative) /HPF Urine Mucus /HPF Urine Sperm (FISH ICER) /HPF Salicylates (2.8-20.0) mg/dL Urine Opiates Screen Urine Methadone Screen Acetaminophen < 5.0 L (10.0-30.0) ug/mL Ur Barbiturates Screen Ur Phencyclidine Scrn Ur Amphetamines Screen U Benzodiazepines Scrn Urine Cocaine Screen U Marijuana (THC) Screen Drugs of Abuse Note Plasma/Serum Alcohol < 0.01 (0-0.07) % 07/03/19 07/03/19 Range/Units 18:36 19:00 WBC (4.5-11.0) K/mm3 RBC (3.65-5.03) M/mm3 Hgb (10.1-14.3) gm/dl Hct (30.3-42.9) % MCV (79-97) fl MCH (28-32) pg MCHC (30-34) % RDW (13.2-15.2) % Plt Count (140-440) K/mm3 Lymph % (Auto) (13.4-35.0) % Robertson % (Auto) (0.0-7.3) % Eos % (Auto) (0.0-4.3) % Baso % (Auto) (0.0-1.8) % Lymph # (1.2-5.4) K/mm3 Robertson # (0.0-0.8) K/mm3 Eos # (0.0-0.4) K/mm3 Baso # (0.0-0.1) K/mm3 Seg Neutrophils % (40.0-70.0) % Seg Neutrophils # (1.8-7.7) K/mm3 Sodium (137-145) mmol/L Potassium (3.6-5.0) mmol/L Chloride (98-107) mmol/L Carbon Dioxide (22-30) mmol/L Anion Gap mmol/L BUN (7-17) mg/dL Creatinine (0.7-1.2) mg/dL Estimated GFR ml/min BUN/Creatinine Ratio % Glucose (65-100) mg/dL Calcium (8.4-10.2) mg/dL Total Bilirubin (0.1-1.2) mg/dL AST (5-40) units/L ALT (7-56) units/L Alkaline Phosphatase (35-129) units/L Total Protein (6.3-8.2) g/dL Albumin (3.9-5) g/dL Albumin/Globulin Ratio % HCG, Qual (Negative) Urine Color Yellow (Yellow) Urine Turbidity Slightly-cloudy (Clear) Urine pH 5.0 (5.0-7.0) Ur Specific [place] 1.016 (1.003-1.030) Urine Protein <15 mg/dl (Negative) mg/dL Urine Glucose (UA) Neg (Negative) mg/dL Urine Ketones Tr (Negative) mg/dL Urine Blood Neg (Negative) Urine Nitrite Neg (Negative) Urine Bilirubin Neg (Negative) Urine Urobilinogen < 2.0 (<2.0) mg/dL Ur Leukocyte Esterase Neg (Negative) Urine WBC (Auto) 5.0 (0.0-6.0) /HPF Urine RBC (Auto) 4.0 (0.0-6.0) /HPF U Epithel Cells (Auto) 2.0 (0-13.0) /HPF Urine Bacteria (Auto) 1+ (Negative) /HPF Urine Mucus Few /HPF Urine Sperm Few (FISH ICER) /HPF Salicylates (2.8-20.0) mg/dL Urine Opiates Screen Presumptive negative Urine Methadone Screen Presumptive negative Acetaminophen (10.0-30.0) ug/mL Ur Barbiturates Screen Presumptive negative Ur Phencyclidine Scrn Presumptive negative Ur Amphetamines Screen Presumptive negative U Benzodiazepines Scrn Presumptive negative Urine Cocaine Screen Presumptive positive U Marijuana (THC) Screen Presumptive negative Drugs of Abuse Note Disclamer Plasma/Serum Alcohol (0-0.07) % - Medical Decision Making Mrs. Farfan is a 49-year-old male with history of hypertension, bipolar disorder and drug abuse who presents with altered mental status. Arousal achieved with intranasal naloxone provided by EMS. Suspect intoxication of illicit drugs. Will observe for hypertensive encephalopathy versus intracranial lesion such as ICH. After 4 hours of observation, vomiting resolved with lorazepam and haloperidol. She was awake alert and ambulatory prior to discharge. She was able to ambulate to the bathroom without assistance. She is appropriate with no evidence of neurological insult. Discharged to home Diagnosis acute encephalopathy resolved history of polysubstance abuse Labs notable for UDS positive for cocaine. BMP notable for chronic renal insufficiency. Pressure 149/93 without intervention. She did not receive order ed IV medication antihypertensive. Critical care attestation.: If time is entered above; I have spent that time in minutes in the direct care of this critically ill patient, excluding procedure time. ED Disposition Clinical Impression: Cocaine abuse, Drug intoxication with delirium Disposition: DC-01 TO HOME OR SELFCARE Is pt being admited?: No Does the pt Need Aspirin: No Condition: Stable Instructions: Polysubstance Abuse (ED)
[2019-07-03 17:47] LABS: Basophils # (Auto) 0.1 K/mm3 (0.0-0.1); Basophils % (Auto) 0.7 % (0.0-1.8); Eosinophils # (Auto) 0.1 K/mm3 (0.0-0.4); Eosinophils % (Auto) 1.1 % (0.0-4.3); Hematocrit 41.8 % (30.3-42.9); Hemoglobin 13.4 gm/dl (10.1-14.3); Lymphocytes # (Auto) 1.5 K/mm3 (1.2-5.4); Lymphocytes % (Auto) 19.5 % (13.4-35.0); Mean Corpuscular HGB Conc 32 % (30-34); Mean Corpuscular Volume 82 fl (79-97); Monocytes # (Auto) 0.6 K/mm3 (0.0-0.8); Monocytes % (Auto) 8.2 % (0.0-7.3); Platelet Count 230 K/mm3 (140-440); Red Blood Count 5.08 M/mm3 (3.65-5.03); Red Cell Distribution Width 16.8 % (13.2-15.2)
[2019-07-03 18:11] LABS: Albumin 4.3 g/dL (3.9-5); Calcium 9.7 mg/dL (8.4-10.2)
[2019-07-03] MEDS ORDERED: HALDOL IV ONE (18:36)
[2019-07-03 19:26] LABS: Bacteria,Urine 1+ /HPF (Negative); Bilirubin,Urine NEG (Negative); Blood,Urine NEG (Negative); Color,Urine Yellow (Yellow); Mucus,Urine FEW /HPF; Protein,Urine <15 mg/dL mg/dL (Negative); Sperm,Urine FEW /HPF (NP); Urobilinogen,Urine < 2.0 mg/dL (<2.0)
[2019-07-03 19:31] LABS: Amphetamine Screen,Urine PRESUMPTIVE NEGATIVE; Benzodiazepines Screen,Urine PRESUMPTIVE NEGATIVE; Cannabinoid Screen,Urine PRESUMPTIVE NEGATIVE; Methadone Screen,Urine PRESUMPTIVE NEGATIVE; Opiate Screen,Urine PRESUMPTIVE NEGATIVE
[2019-07-03 20:06] LABS: Cocaine Screen,Urine PRESUMPTIVE POSITIVE
[2019-07-03] MEDS ORDERED: APRESOLINE IV ONE (20:40)
[2019-07-03 20:52] VITALS: BP 149/93
== END 2019-07-03 21:48 | disposition home or self-care (01) ==
LOC: ED 16:55
DX: F14.10 Cocaine abuse, uncomplicated (principal); F31.9 Bipolar disorder, unspecified; F19.921 Other psychoactive substance use, unspecified with intoxication with delirium; R11.10 Vomiting, unspecified; F20.9 Schizophrenia, unspecified; I10 Essential (primary) hypertension; Z98.890 Other specified postprocedural states
CPT/HCPCS: 36415; 80053; 80307; 81001; 84703; 85025; 96374; 96375; 99284; J0360; J1630; J2060; J7030; 80320; G0480; J2405

== ENCOUNTER 2019-07-20 20:00 | Emergency (ER) | payer MEDICAID ==
[2019-07-20] MEDS ORDERED: ONDANSETRON 4 MG/2 ML INJ IV ONE (20:32)
[2019-07-20] MEDS ORDERED: diphenhydrAMINE 50 MG/ML VIAL IV ONE (20:32)
[2019-07-20] MEDS ORDERED: fentaNYL 100 MCG/2 ML INJ IV ONE ×2 (20:32→22:33)
[2019-07-20] MEDS ORDERED: SODIUM CHLORIDE 0.9% 1000 ML 1,000 ML IV ONE ×2 (20:33→22:53)
--- NOTE | 2019-07-20 20:37 | Emergency Department Report ---
HPI - General Chief Complaint: Abdominal Pain Time Seen by Provider: 07/20/19 20:25 - HPI HPI: Room 9 The patient is a 49-year-old female presenting with a chief complaint of abdominal pain. Patient states she's had sharp epigastric abdominal pain rating to her back for one day. Patient admits to nausea vomiting and diarrhea. Patient denies any previous episodes of same. The patient appears very anxious and is not fully cooperative with expanded history. Location: [See above] Duration: [See above] Quality: [See above] Severity: [See above] Timing: [See above] Context: [See above] Modifying factors: [See above] Associated signs and symptoms: [see above] ED Past Medical Hx - Past Medical History Previous Medical History?: Yes Hx Hypertension: Yes Hx Psychiatric Treatment: Yes (cocaine abuse, schizophrenia, bipolar) Additional medical history: Scoliosis / gallstones - Surgical History Past Surgical History?: Yes Additional Surgical History: Surgery for scoliosis. Hernia repair. 1988 - Family History Family history: no significant - Social History Smoking Status: Unknown if ever smoked Substance Use Type: None - Medications Home Medications: Home Medications Medication Instructions Recorded Confirmed Last Taken Type Hydralazine HCl 50 mg PO BID #60 tablet 06/23/19 07/03/19 Unknown Rx amLODIPine [Norvasc] 10 mg PO QDAY #30 tablet 06/23/19 07/03/19 Unknown Rx Dicyclomine [Bentyl] 20 mg PO QID #20 tablet 07/20/19 Unknown Rx Ondansetron [Zofran ODT TAB] 8 mg PO Q8HR #20 tab.rapdis 07/20/19 Unknown Rx ED Review of Systems ROS: Stated complaint: N/V Other details as noted in HPI Constitutional: denies: fever Eyes: denies: eye pain ENT: denies: throat pain Respiratory: no symptoms reported Cardiovascular: denies: chest pain Endocrine: no symptoms reported Gastrointestinal: abdominal pain, nausea, vomiting, diarrhea Genitourinary: denies: dysuria Musculoskeletal: back pain Neurological: denies: headache Physical Exam - Physical Exam Vital Signs: Vital Signs 07/20/19 20:22 Pulse Rate 85 Respiratory 16 Rate Blood Pressure 164/131 O2 Sat by Pulse 97 Oximetry Physical Exam: GENERAL: The patient is well-developed well-nourished anxious female half dressed lying [facility] in a chair. [] HEENT: Normocephalic. Atraumatic. Extraocular motions are intact. Patient has moist mucous membranes. NECK: Supple. Trachea midline CHEST/LUNGS: Clear to auscultation. There is no respiratory distress noted. HEART/CARDIOVASCULAR: Regular. There is no tachycardia. There is no gallop rub or murmur. ABDOMEN: Abdomen is soft, with tenderness to palpation in the midepigastric and suprapubic region. Patient has normal bowel sounds. There is no abdominal distention. SKIN: There is no rash. There is no edema. There is no diaphoresis. NEURO: The patient is awake, alert, anxious but oriented. The patient is intermittently cooperative. The patient has no focal neurologic deficits. The patient has normal speech MUSCULOSKELETAL:There is no evidence of acute injury. ED Course Vital Signs 07/20/19 20:22 Pulse Rate 85 Respiratory 16 Rate Blood Pressure 164/131 O2 Sat by Pulse 97 Oximetry ED Medical Decision Making - Lab Data Result diagrams: 07/20/19 20:47 07/20/19 20:47 - EKG Data -: EKG Interpreted by Nv EKG shows normal: sinus rhythm Rate: normal - EKG Data When compared to previous EKG there are: no significant change Interpretation: nonspecific ST-T wave yue (T-wave inversions in leads V2, V3, V4) - Radiology Data Radiology results: report reviewed (CT abdomen and pelvis), image reviewed (CT abdomen and pelvis) [address] [address] Cat Scan Report Signed Patient: JUANI MOSS MR #: [id number] : 1970 Acct:[id number] Age/Sex: 49 / F ADM Date: 07/20/19 Loc: ED Attending Dr: Ordering Physician: VANNESA GELLER MD Date of Service: 07/20/19 Procedure(s): CT abdomen pelvis w con Accession Number(s): [id number] cc: VANNESA GELLER MD CT of the abdomen and pelvis with intravenous contrast INDICATION / CLINICAL INFORMATION: Epigastric and abdominal pain radiating to the back. TECHNIQUE: The patient received 60 cc Omnipaque [address] scans at this location are performed using CT dose reduction for ALARA by means of automated exposure control. COMPARISON: 06/20/2019. FINDINGS: ABDOMEN: The liver, spleen, gallbladder, bile ducts, pancreas, adrenal glands, kidneys and bowel demonstrate no significant abnormality. No adenopathy is seen. The lung bases are clear. There is a Serrato nadya transfixing the thoracolumbar spine. PELVIS: The distal ureters and urinary bladder are normal. The uterus and adnexal regions are unremarkable. There is no evidence of appendicitis or diverticulitis. No abnormal mass or fluid collection is seen. There is bilateral spondylolysis at L5 without significant spondylolisthesis. IMPRESSION: No acute abnormality is identified. Signer Name: Beto Cornejo MD Signed: 07/20/2019 10:41 PM Workstation Name: [id number] Transcribed By: RT Dictated By: Beto Cornejo MD Electronically Authenticated By: Beto Cornejo MD Signed Date/Time: 07/20/192240 DD/ 37 TD/TT: - Differential Diagnosis peptic ulcer disease, pancreatitis, cholelithiasis, cholecystitis, AAA Critical care attestation.: If time is entered above; I have spent that time in minutes in the direct care of this critically ill patient, excluding procedure time. ED Disposition Clinical Impression: Acute abdominal pain, Nausea vomiting and diarrhea, Cocaine abuse, Hypertension Disposition: DC-01 TO HOME OR SELFCARE Is pt being admited?: No Does the pt Need Aspirin: No Condition: Stable Instructions: Abdominal Pain (ED), Acute Nausea and Vomiting (ED), Hypertension (ED) Additional Instructions: Return to the emergency department should you develop worsening symptoms, inability to tolerate food or liquids, high fever or any other concerns Prescriptions: Dicyclomine [Bentyl] 20 mg PO QID #20 tablet Ondansetron [Zofran ODT TAB] 8 mg PO Q8HR #20 tab.rapdis [facility]: [facility] [Primary Care Provider] - 3-5 Days OJHANNA GRAJEDA MD [Staff Physician] - 3-5 Days (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 Please follow up with him further evaluation) Time of Disposition: 23:31
[2019-07-20 21:07] LABS: Basophils # (Auto) 0.1 K/mm3 (0.0-0.1); Basophils % (Auto) 0.8 % (0.0-1.8); Eosinophils # (Auto) 0.1 K/mm3 (0.0-0.4); Eosinophils % (Auto) 1.3 % (0.0-4.3); Hematocrit 47.3 % (30.3-42.9); Hemoglobin 14.8 gm/dl (10.1-14.3); Lymphocytes # (Auto) 1.8 K/mm3 (1.2-5.4); Lymphocytes % (Auto) 19.1 % (13.4-35.0); Mean Corpuscular HGB Conc 31 % (30-34); Mean Corpuscular Volume 83 fl (79-97); Monocytes % (Auto) 10.4 % (0.0-7.3); Platelet Count 249 K/mm3 (140-440); Red Blood Count 5.68 M/mm3 (3.65-5.03); Red Cell Distribution Width 16.5 % (13.2-15.2)
[2019-07-20 21:18] LABS: Amphetamine Screen,Urine PRESUMPTIVE NEGATIVE; Benzodiazepines Screen,Urine PRESUMPTIVE NEGATIVE; Cannabinoid Screen,Urine PRESUMPTIVE NEGATIVE; Methadone Screen,Urine PRESUMPTIVE NEGATIVE; Opiate Screen,Urine PRESUMPTIVE NEGATIVE
[2019-07-20 21:24] LABS: Bilirubin,Urine NEG (Negative); Blood,Urine NEG (Negative); Color,Urine Yellow (Yellow); Mucus,Urine FEW /HPF; Urobilinogen,Urine < 2.0 mg/dL (<2.0)
[2019-07-20 21:28] LABS: Albumin 4.3 g/dL (3.9-5); Calcium 9.8 mg/dL (8.4-10.2)
[2019-07-20] MEDS ORDERED: hydrALAZINE 20 MG/1 ML INJ IV ONE ×2 (21:42→22:28)
[2019-07-20 21:43] LABS: Creatine Kinase MB 3.6 ng/mL (0.0-4.0)
[2019-07-20 21:47] LABS: Cocaine Screen,Urine PRESUMPTIVE POSITIVE
[2019-07-20] MEDS ORDERED: METOCLOPRAMIDE 10 MG/2 ML INJ IV ONE (22:14)
[2019-07-20] MEDS ORDERED: METOCLOPRAMIDE 10 MG/2 ML INJ ONE (22:17)
[2019-07-20] MEDS ORDERED: fentaNYL 100 MCG/2 ML INJ ONE (22:36)
--- NOTE | 2019-07-20 22:46 | Cat Scan Report ---
CT of the abdomen and pelvis with intravenous contrast INDICATION / CLINICAL INFORMATION: Epigastric and abdominal pain radiating to the back. TECHNIQUE: The patient received 60 cc Omnipaque [address] scans at this location are performed u sing CT dose reduction for ALARA by means of automated exposure control. COMPARISON: 06/20/2019. FINDINGS: ABDOMEN: The liver, spleen, gallbladder, bile ducts, pancreas, adrenal glands, kidneys and bowel demo nstrate no significant abnormality. No adenopathy is seen. The lung bases are clear. There is a Harri ngton nadya transfixing the thoracolumbar spine. PELVIS: The distal ureters and urinary bladder are normal. The uterus and adnexal regions are unremar kable. There is no evidence of appendicitis or diverticulitis. No abnormal mass or fluid collection i s seen. There is bilateral spondylolysis at L5 without significant spondylolisthesis. IMPRESSION: No acute abnormality is identified. Signer Name: Beto Cornejo MD Signed: 07/20/2019 10:41 PM Workstation Name: [id number]
[2019-07-21 01:43] VITALS: BP 183/99
== END 2019-07-21 01:42 | disposition home or self-care (01) ==
LOC: ED 20:00
DX: R10.9 Unspecified abdominal pain (principal); R11.2 Nausea with vomiting, unspecified; R19.7 Diarrhea, unspecified; F14.10 Cocaine abuse, uncomplicated; I10 Essential (primary) hypertension; F25.0 Schizoaffective disorder, bipolar type; M41.9 Scoliosis, unspecified; Z79.899 Other long term (current) drug therapy
CPT/HCPCS: 36415; 74177; 80053; 80307; 81001; 82550; 82553; 83690; 84484; 85025; 93005; 93010; 96361; 96374; 96375; 96376; 99285; J0360; J1200; J2405; J2765; J3010; J7030; Q9967

== ENCOUNTER 2019-09-13 11:27 | Emergency (ER) | payer MEDICAID ==
[2019-09-13] MEDS ORDERED: LORazepam 2 MG/ML VIAL IM STA (11:45)
[2019-09-13] MEDS ORDERED: LORazepam 2 MG/ML VIAL ONE (11:47)
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
[2019-09-13] MEDS ORDERED: cloNIDine 0.2 MG TAB PO ONE (13:03)
--- NOTE | 2019-09-13 15:25 | Emergency Department Report ---
HPI - General Chief Complaint: Medical Clearance Time Seen by Provider: 09/13/19 11:52 - HPI HPI: This patient was originally was in the emergency department earlier this afternoon with the crack cocaine abuse and some agitation or psychosis related to that. She received some Ativan and some clonidine and just wanted to sleep off the effects of the cocaine. The patient had been refusing any blood work to be drawn. The patient was found defecating inside of a trash can. She was seen by my colleague and just recently discharged. However the security officers were called out to the parking lot where the patient was found rolling around on the ground and yelling. She was brought back into the emergency department, into room 15, the patient is currently sleeping. She also has a past medical history of bipolar disorder, schizophrenia ED Past Medical Hx - Past Medical History Hx Hypertension: Yes Hx Congestive Heart Failure: No Hx Diabetes: No Hx Psychiatric Treatment: Yes (cocaine abuse, schizophrenia, bipolar) Hx Asthma: No Hx COPD: No Hx HIV: No Additional medical history: Scoliosis / gallstones - Surgical History Additional Surgical History: Surgery for scoliosis. Hernia repair. 1988 - Social History Smoking Status: Unknown if ever smoked Substance Use Type: None - Medications Home Medications: Home Medications Medication Instructions Recorded Confirmed Last Taken Type Hydralazine HCl 50 mg PO BID #60 tablet 06/23/19 09/13/19 Unknown Rx Dicyclomine [Bentyl] 20 mg PO QID #20 tablet 07/20/19 09/13/19 Unknown Rx Ondansetron [Zofran ODT TAB] 8 mg PO Q8HR #20 tab.rapdis 07/20/19 09/13/19 Unknown Rx amLODIPine 10 mg PO QDAY #30 tablet 09/14/19 Unknown Rx ED Review of Systems ROS: Stated complaint: SYNCOPE Other details as noted in HPI Comment: Unobtainable due to pts medical conditions Physical Exam - Physical Exam Vital Signs: Vital Signs 09/13/19 12:29 Respiratory 15 Rate Physical Exam: GENERAL: The patient is well-developed well-nourished. HENT: Normocephalic. Atraumatic. Patient has moist mucous membranes. EYES: Extraocular motions are intact. NECK: Supple. Trachea is midline. CHEST/LUNGS: Clear to auscultation. There is no respiratory distress noted. HEART/CARDIOVASCULAR: Regular. There is no tachycardia. There is no murmur. ABDOMEN: Abdomen is soft, nontender. Patient has normal bowel sounds. There is no abdominal distention. SKIN: Skin is warm and dry. NEURO: Patient is sleeping but is arousable. Patient is uncooperative. No slurred speech. No obvious motor or focal deficits seen. MUSCULOSKELETAL: There is no tenderness or deformity. There is no limitation range of motion. There is no evidence of acute injury. ED Course Vital Signs 09/13/19 12:29 Respiratory 15 Rate - Reevaluation(s) Reevaluation #1: The patient was seen and reevaluated about one hour after she was brought back from the bus stop and at this point the patient seems more sober. She is still uncooperative but she is able to display that she is awake, alert and oriented. Patient was found to have very elevated blood pressure. She has a history of hypertension with medication noncompliance, plus she has been using cocaine. First the patient refused the clonidine but allowed me to give her some amlodipine. Her blood pressure was rechecked and was still quite elevated. I went and spoke with the patient and told her that she needs to comply with IV access and labs so that we can appropriately evaluate her and treat her hypertension. If the patient is still uncooperative, since she is awake and zuri ented and of sound mind to make medical decisions, and the patient is essentially refusing treatment and will be considered to be signing out or leaving AGAINST MEDICAL ADVICE. At first the patient agreed to allow this treatment to be initiated, but shortly afterwards the patient apparently eloped from the emergency department. 09/15/19 19:02 ED Medical Decision Making - Medical Decision Making This patient here and seen by my colleague prior to my shift and was discharged but she was found rolling around on the ground near the bus stop and was brought back in by security. First she was very sleepy and still altered from her cocaine abuse. However she was reevaluated multiple times and eventually was much more awake and alert and did not appear acutely intoxicated. However she continued, throughout her entire ED course, to be uncooperative. Patient was found to have very elevated blood pressure. She has a history of hypertension with medication noncompliance, plus she has been using cocaine. First the patient refused the clonidine but allowed me to give her some amlodipine. Her blood pressure was rechecked and was still quite elevated. I went and spoke with the patient and told her that she needs to comply with IV access and labs so that we can appropriately evaluate her and treat her hypertension. If the patient is still uncooperative, since she is awake and oriented and of sound mind to make medical decisions, and the patient is essentially refusing treatment and will be considered to be signing out or leaving AGAINST MEDICAL ADVICE. At first the patient agreed to allow this treatment to be initiated, but shortly afterwards the patient apparently eloped from the emergency Critical Care Time: No Critical care attestation.: If time is entered above; I have spent that time in minutes in the direct care of this critically ill patient, excluding procedure time. ED Disposition Clinical Impression: Cocaine abuse Hypertension Qualifiers: Hypertension type: essential hypertension Qualified Code(s): I10 - Essential (primary) hypertension Disposition: ELOPED Is pt being admited?: No Instructions: Cocaine Abuse (ED), Hypertension (ED) Additional Instructions: Please avoid any further cocaine or illicit drug use. Try and stay away from foods that are high in salt and caffeinated products. Keep a blood pressure log. Take your blood pressure medications. Prescriptions: amLODIPine 10 mg PO QDAY #30 tablet Referrals: [facility] [Outside] - 3-5 Days [facility] [Outside] - 3-5 Days PRIMARY CARE, [Primary Care Provider] - 3-5 Days
[2019-09-13] MEDS ORDERED: cloNIDine 0.2 MG TAB ONE (16:38)
[2019-09-13] MEDS ORDERED: cloNIDine 0.1 MG TAB ONE (17:02)
[2019-09-13] MEDS ORDERED: amLODIPine 10 MG TAB ONE (22:21)
[2019-09-13] MEDS ORDERED: amLODIPine 5 MG TAB PO ONE (22:23)
[2019-09-13 22:28] VITALS: BP 202/136
[2019-09-13 22:42] LABS: Bilirubin,Urine NEG (Negative); Blood,Urine SM (Negative); Color,Urine Yellow (Yellow); Mucus,Urine FEW /HPF
[2019-09-13 22:48] LABS: Amphetamine Screen,Urine PRESUMPTIVE NEGATIVE; Benzodiazepines Screen,Urine PRESUMPTIVE NEGATIVE; Cannabinoid Screen,Urine PRESUMPTIVE NEGATIVE; Methadone Screen,Urine PRESUMPTIVE NEGATIVE; Opiate Screen,Urine PRESUMPTIVE NEGATIVE
[2019-09-13 23:03] LABS: Cocaine Screen,Urine PRESUMPTIVE POSITIVE
== END 2019-09-14 00:48 | disposition left against medical advice (07) ==
LOC: ED 11:27
DX: I10 Essential (primary) hypertension (principal); F14.10 Cocaine abuse, uncomplicated; R41.82 Altered mental status, unspecified; F25.0 Schizoaffective disorder, bipolar type; R55 Syncope and collapse; Z79.899 Other long term (current) drug therapy
CPT/HCPCS: 80307; 81001; 96372; 99284; J2060

== ENCOUNTER 2019-10-07 08:51 | Emergency (ER) | payer MEDICAID ==
[2019-10-07] MEDS ORDERED: HALOPERIDOL LACTATE 5 MG/1 ML INJ IM PRN (09:37)
[2019-10-07] MEDS ORDERED: LORazepam 2 MG/ML VIAL IM PRN (09:37)
[2019-10-07] MEDS ORDERED: HALOPERIDOL LACTATE 5 MG/1 ML INJ ONE (09:41)
[2019-10-07] MEDS ORDERED: LORazepam 2 MG/ML VIAL ONE (09:41)
--- NOTE | 2019-10-07 09:48 | Emergency Department Report ---
<MADHAV LECHUGA III - Last Filed: 10/08/19 00:11> ED General Adult HPI - General Chief complaint: Altered Mental Status Stated complaint: SMOKED CRACKED/CHEST PAIN Time Seen by Provider: 10/07/19 09:36 - Related Data Previous Rx's Medication Instructions Recorded Last Taken Type Hydralazine HCl 50 mg PO BID #60 tablet 06/23/19 Unknown Rx Dicyclomine [Bentyl] 20 mg PO QID #20 tablet 07/20/19 Unknown Rx Ondansetron [Zofran ODT TAB] 8 mg PO Q8HR #20 tab.rapdis 07/20/19 Unknown Rx amLODIPine 10 mg PO QDAY #30 tablet 09/14/19 Unknown Rx Allergies Allergy/AdvReac Type Severity Reaction Status Date / Time No Known Allergies Allergy Verified 10/07/19 09:38 ED Past Medical Hx - Medications Home Medications: Home Medications Medication Instructions Recorded Confirmed Last Taken Type Hydralazine HCl 50 mg PO BID #60 tablet 06/23/19 09/13/19 Unknown Rx Dicyclomine [Bentyl] 20 mg PO QID #20 tablet 07/20/19 09/13/19 Unknown Rx Ondansetron [Zofran ODT TAB] 8 mg PO Q8HR #20 tab.rapdis 07/20/19 09/13/19 Unknown Rx amLODIPine 10 mg PO QDAY #30 tablet 09/14/19 Unknown Rx ED Course - Reevaluation(s) Reevaluation #4: she is still resting in bed. 10/07/19 1600 pt signed out to oncoming physician, Dr. Salinas.. 10/08/19 00:12 ED Medical Decision Making - Lab Data Result diagrams: 10/07/19 11:44 10/07/19 12:23 ED Disposition Clinical Impression: Bipolar disorder, Cocaine abuse, Schizophrenia, Renal insufficiency Disposition: DC-01 TO HOME OR SELFCARE Condition: Stable Additional Instructions: Do not take Motrin, ibuprofen, Naprosyn, Aleve. Please drink 4-6 cups of water per day. Recommend patient not consuming or use recreational crack or cocaine. Long-term consumption of crack and cocaine may cause disability, paralysis, , loss of quality of life. Recommend patient follow up with the primary care doctor or nephrology physician within the next 7-10 days. Patient may continue current outpatient blood pressure medications. Advance diet as tolerated. Please return to the emergency room right away with new, worsening or different symptoms, or symptoms not present on the initial emergency room evaluation. Referrals: JORDANA REYES MD [Primary Care Provider] - 3-5 Days [facility] [Provider Group] - 3-5 Days [facility] [Provider Group] - 3-5 Days SUMIT MCARTHUR MD [Staff Physician] - 3-5 Days <AARON LIZ - Last Filed: 10/08/19 23:57> ED General Adult HPI - General Source: patient, EMS ( EMS documentation not available at time of chart dictation ), RN notes reviewed, old records reviewed Mode of arrival: Stretcher Limitations: Other (patient is intoxicated) - History of Present Illness Initial comments: Verbal report received from emergency medical services. The patient is a 49-year-old female with a history of hypertension, bipolar, nicotine dependence, substance abuse, schizophrenia, renal insufficiency The patient is brought to the hospital by emergency medical services for suspected crack overdose. Apparently, patient found laying on it. It is unknown who called 911. EMS indicates the patient complained of chest pain in the field. Upon initial arrival, the patient is being escorted back by EMS, walking with a slightly unsteady gait. The patient will not talk to me. She w ill not answer open-ended reclosing the questions. She is doing stretching exercises in the stretcher. Her last known well time is not known. She will not comment on homicidality or suicidality. One point in time, the patient tried to run away. She is now sitting down her stretcher, crying hysterically. She is not able to describe last known well time, qualitative nature of her symptoms, exacerbating or relieving factors. There is no family or friend available at this time for additional information or collateral information. -: unknown Quality: other Consistency: other Improves with: other Worsens with: other Associated Symptoms: other ED Review of Systems ROS: Stated complaint: SMOKED CRACKED/CHEST PAIN Other details as noted in HPI Comment: Unobtainable due to pts medical conditions ED Past Medical Hx - Past Medical History Hx Hypertension: Yes Hx Congestive Heart Failure: No Hx Diabetes: No Hx Psychiatric Treatment: Yes (cocaine abuse, schizophrenia, bipolar) Hx Asthma: No Hx COPD: No Hx HIV: No Additional medical history: Scoliosis / gallstones - Surgical History Additional Surgical History: Surgery for scoliosis. Hernia repair. 1988 - Social History Smoking Status: Unknown if ever smoked Substance Use Type: Cocaine ED Physical Exam - General Limitations: Altered Mental Status, Other (patient is intoxicated. Patient appears to be disorganized.) General appearance: appears intoxicated, anxious, in distress, obese - Head Head exam: Present: atraumatic, normocephalic - Eye Eye exam: Present: normal appearance, PERRL, EOMI - ENT ENT exam: Present: normal exam, normal orophraynx, mucous membranes moist, normal external ear exam - Neck Neck exam: Present: normal inspection, full ROM. Absent: tenderness, meningismus - Respiratory Respiratory exam: Present: normal lung sounds bilaterally. Absent: respiratory distress - Cardiovascular Cardiovascular Exam: Present: regular rate, normal rhythm, normal heart sounds. Absent: bradycardia, tachycardia, irregular rhythm, systolic murmur, diastolic murmur, rubs, gallop - GI/Abdominal GI/Abdominal exam: Present: soft. Absent: distended, tenderness, guarding, rebound, rigid, pulsatile mass - Extremities Exam Extremities exam: Present: normal inspection, full ROM, other (2+ pulses noted in the bilateral upper and lower extremities. There is no palpable cord. negative Homans sign. Muscular compartments are soft. The pelvis is stable.). Absent: pedal edema, joint swelling, calf tenderness - Back Exam Back exam: Present: normal inspection, full ROM. Absent: tenderness, CVA tenderness (R), CVA tenderness (L), paraspinal tenderness, vertebral tenderness - Neurological Exam Neurological exam: Present: altered, other (patient walks with a slightly uns teady gait. Moving 4 extremities spontaneously. Speaking in nonsensical sentences. Extractive movements are intact. Very anxious. Disorganized. Detailed neurologic examination not possible secondary to intoxication and disorganized behavior) - Psychiatric Psychiatric exam: Present: agitated, anxious - Skin Skin exam: Present: warm, dry, intact, normal color. Absent: rash ED Course Vital Signs 10/07/19 10/07/19 10/07/19 09:32 09:41 09:54 Temperature Pulse Rate 93 H 88 77 Respiratory 22 18 12 Rate Blood Pressure 114/68 114/69 Blood Pressure [Left] O2 Sat by Pulse 93 100 Oximetry 10/07/19 10/07/19 10/07/19 10:00 10:16 10:30 Temperature Pulse Rate 82 83 80 Respiratory 24 22 21 Rate Blood Pressure 114/69 114/69 114/69 Blood Pressure [Left] O2 Sat by Pulse Oximetry 10/07/19 10/07/19 10/07/19 10:46 11:00 11:06 Temperature 97.2 F L Pulse Rate 84 75 Respiratory 21 18 Rate Blood Pressure 114/69 114/69 Blood Pressure [Left] O2 Sat by Pulse Oximetry 10/07/19 10/07/19 10/07/19 11:16 11:31 11:46 Temperature Pulse Rate 83 87 79 Respiratory 18 18 18 Rate Blood Pressure 114/69 114/69 114/69 Blood Pressure [Left] O2 Sat by Pulse Oximetry 10/07/19 10/07/19 10/07/19 12:00 12:16 12:30 Temperature Pulse Rate 81 103 H 87 Respiratory 16 23 19 Rate Blood Pressure 114/69 114/69 114/69 Blood Pressure [Left] O2 Sat by Pulse Oximetry 10/07/19 10/07/19 10/07/19 12:46 13:00 13:16 Temperature Pulse Rate 90 91 H 92 H Respiratory 18 18 18 Rate Blood Pressure 114/69 114/69 114/69 Blood Pressure [Left] O2 Sat by Pulse Oximetry 10/07/19 10/07/19 10/07/19 13:30 13:46 14:00 Temperature Pulse Rate 94 H 89 88 Respiratory 19 19 19 Rate Blood Pressure 114/69 114/69 151/108 Blood Pressure [Left] O2 Sat by Pulse 96 Oximetry 10/07/19 10/07/19 10/07/19 15:30 16:30 16:46 Temperature Pulse Rate 93 H 96 H 101 H Respiratory 19 18 18 Rate Blood Pressure 159/99 159/99 159/99 Blood Pressure [Left] O2 Sat by Pulse 98 96 95 Oximetry 10/07/19 10/07/19 10/07/19 17:00 17:16 17:30 Temperature Pulse Rate 102 H 104 H 99 H Respiratory 19 35 H 28 H Rate Blood Pressure 159/99 159/99 159/99 Blood Pressure [Left] O2 Sat by Pulse 95 94 97 Oximetry 10/07/19 10/07/19 10/07/19 17:46 18:00 18:16 Temperature Pulse Rate 92 H 90 93 H Respiratory 19 18 19 Rate Blood Pressure 159/99 159/99 159/99 Blood Pressure [Left] O2 Sat by Pulse 97 96 96 Oximetry 10/07/19 10/07/19 10/07/19 18:30 18:46 19:00 Temperature Pulse Rate 96 H 85 88 Respiratory 19 21 21 Rate Blood Pressure 159/99 159/99 159/99 Blood Pressure [Left] O2 Sat by Pulse 95 97 97 Oximetry 10/07/19 10/07/19 10/07/19 19:16 19:30 19:46 Temperature Pulse Rate 80 87 86 Respiratory 22 20 19 Rate Blood Pressure 159/99 Blood Pressure [Left] O2 Sat by Pulse 100 Oximetry 10/07/19 10/07/19 10/07/19 20:00 20:16 21:00 Temperature Pulse Rate 85 85 92 H Respiratory 17 20 18 Rate Blood Pressure 185/116 185/116 Blood Pressure [Left] O2 Sat by Pulse 99 99 93 Oximetry 10/07/19 10/08/19 22:06 00:00 Temperature Pulse Rate 80 78 Respiratory 15 16 Rate Blood Pressure Blood Pressure 145/95 136/74 [Left] O2 Sat by Pulse 100 97 Oximetry - Reevaluation(s) Reevaluation #1: 10/07/19 09:55 Differential diagnosis, including but not limited to: Crack intoxication, polysubstance intoxication, intracranial injury, cervical spine injury, disorganized behavior Assessment and plan: 49-year-old female who is clinically intoxicated, moving 4 extremities, protecting her airway, most likely presenting with expected history of drug abuse. She is placed on ER hold. Haldol, Ativan ordered as needed. EKG, laboratory studies, x-ray the chest, noncontrast CT scan of the brain and cervical spine ordered. Reevaluation #2: 10/07/19 11:07 EKG reviewed and appreciated. Noncontrast CT scan of the brain, cervical spine negative for acute disease. X-ray unremarkable. EKG unchanged from prior. Resting comfortably after sedation. Laboratory studies pending at this time. Reevaluation #3: 10/07/19 14:15 Patient resting comfortably, and in no acute distress. Renal insufficiency is slightly worse than previously. This is most likely secondary to crack cocaine use, as well as dehydration, and probable diet and lifestyle and medication noncompliance. IV fluids are ordered. Care will be transferred to the oncoming physician, Dr. Gaetano Lechuga, to monitor for clinical sobriety, and discharged once sober. ED Medical Decision Making - Lab Data Result diagrams: 10/07/19 11:44 10/07/19 12:23 Vital Signs 10/07/19 09:41 Pulse Rate 88 Respiratory 18 Rate Blood Pressure 114/68 O2 Sat by Pulse 100 Oximetry - EKG Data -: EKG Interpreted by Ma EKG shows normal: sinus rhythm Rate: normal - EKG Data When compared to previous EKG there are: no significant change 10/07/19 11:07 EKG appears to be unchanged from prior. EKG shows a sinus rhythm, 79 bpm, there is a normal axis, the QTC is prolonged, there is left ventricular hypertrophy, atrial enlargement, T wave abnormalities. The EKG is not consistent with ST elevation myocardial infarction. The EKG appears to be unchanged from prior EKG from June 2019. Critical care attestation.: If time is entered above; I have spent that time in minutes in the direct care of this critically ill patient, excluding procedure time. ED Disposition Is pt being admited?: No Does the pt Need Aspirin: No
--- NOTE | 2019-10-07 10:09 | XRay Report ---
CHEST 1 VIEW 10/07/2019 9:45 AM INDICATION / CLINICAL INFORMATION: od hx of cp. COMPARISON: 06/20/19 FINDINGS: SUPPORT DEVICES: None. HEART / MEDIASTINUM: Heart is upper normal size and stable. LUNGS / PLEURA: No significant pulmonary or pleural abnormality. No pneumothorax. ADDITIONAL FINDINGS: Thoracic spine Serrato nadya is unchanged. IMPRESSION: 1. No acute findings. No change. Signer Name: Emilee Wayne MD Signed: 10/07/2019 10:05 AM Workstation Name: [id number]
--- NOTE | 2019-10-07 10:32 | Cat Scan Report ---
CT HEAD WITHOUT CONTRAST INDICATION / CLINICAL INFORMATION: ams found down intox. TECHNIQUE: All CT scans at this location are performed using CT dose reduction for ALARA by means of automated e xposure control. COMPARISON: CT dated 06/20/19 FINDINGS: HEMORRHAGE: None. EXTRA-AXIAL SPACES: Normal in size and morphology for the patient's age. VENTRICULAR SYSTEM: Normal in size and morphology for the patient's age. CEREBRAL PARENCHYMA: No significant abnormality. No acute territorial infarct. MIDLINE SHIFT OR HERNIATION: None. CEREBELLUM / BRAINSTEM: No significant abnormality. ORBITS: Normal as visualized. SOFT TISSUES of HEAD: No significant abnormality. CALVARIUM: No significant abnormality. PARANASAL SINUSES / MASTOID AIR CELLS: Normal as visualized. ADDITIONAL FINDINGS: None. IMPRESSION: 1. No acute intracranial abnormality. No significant change. Signer Name: Emilee Wayne MD Signed: 10/07/2019 10:28 AM Workstation Name: [id number]
--- NOTE | 2019-10-07 10:36 | Cat Scan Report ---
CT CERVICAL SPINE WITHOUT CONTRAST INDICATION / CLINICAL INFORMATION: ams found down intox. TECHNIQUE: Axial CT images were obtained through the cervical spine. Sagittal and coronal reformatted images wer e produced. All CT scans at this location are performed using CT dose reduction for ALARA by means of automated exposure control. COMPARISON: CT dated 06/20/19 FINDINGS: VERTEBRAE: No significant abnormality. ALIGNMENT: No significant abnormality. DISC SPACES: Mild multilevel discogenic spondylosis. FACET JOINTS: No significant abnormality. CRANIOCERVICAL JUNCTION:No significant abnormality. SPINAL CANAL: No significant abnormality. PARASPINAL SOFT TISSUES: No significant abnormality. ADDITIONAL FINDINGS: None. LUNG APICES: No significant abnormality of visualized lungs. IMPRESSION: 1. No acute fracture or subluxation. No significant change. Signer Name: Emilee Wayne MD Signed: 10/07/2019 10:31 AM Workstation Name: [id number]
[2019-10-07 11:56] LABS: Hematocrit 43.8 % (30.3-42.9); Hemoglobin 14.4 gm/dl (10.1-14.3); Mean Corpuscular HGB Conc 33 % (30-34); Mean Corpuscular Volume 83 fl (79-97); Platelet Count 249 K/mm3 (140-440); Red Blood Count 5.28 M/mm3 (3.65-5.03); Red Cell Distribution Width 15.1 % (13.2-15.2)
[2019-10-07 12:35] LABS: Bilirubin,Urine NEG (Negative); Blood,Urine SM (Negative); Color,Urine Yellow (Yellow); Mucus,Urine FEW /HPF; Urobilinogen,Urine < 2.0 mg/dL (<2.0)
[2019-10-07 12:38] LABS: RBC,Urine < 1.0 /HPF (0.0-6.0)
[2019-10-07 13:01] LABS: Albumin 4.6 g/dL (3.9-5); Calcium 9.9 mg/dL (8.4-10.2)
[2019-10-07] MEDS ORDERED: SODIUM CHLORIDE 0.9% 1000 ML 2,000 ML IV ONE (13:04)
[2019-10-07] MEDS ORDERED: NON-FORMULARY EACH (Hydralazine Hcl [Hydralazine Hcl] 50 MG) PO SCH (14:15)
[2019-10-07] MEDS ORDERED: amLODIPine 10 MG TAB PO SCH (15:00)
[2019-10-07] MEDS: hydrALAZINE 25 MG TAB PO SCH ×2 (16:30→22:42)
[2019-10-08 07:05] VITALS: BP 136/74
== END 2019-10-08 07:05 | disposition home or self-care (01) ==
LOC: ED 08:51
DX: F31.9 Bipolar disorder, unspecified (principal); F14.129 Cocaine abuse with intoxication, unspecified; F20.9 Schizophrenia, unspecified; N28.9 Disorder of kidney and ureter, unspecified; I10 Essential (primary) hypertension; R41.82 Altered mental status, unspecified
CPT/HCPCS: 36415; 70450; 71045; 72125; 80053; 81001; 82550; 83735; 85027; 93005; 93010; 96372; 99285; J1630; J2060; J7030; 80320; G0480

== ENCOUNTER 2019-11-03 10:10 | Emergency (ER) | payer MEDICAID ==
[2019-11-03] MEDS ORDERED: cloNIDine 0.1 MG TAB PO ONE ×2 (11:10→12:18)
[2019-11-03] MEDS ORDERED: KETOROLAC 60 MG/2 ML INJ IM ONE (11:10)
[2019-11-03] MEDS ORDERED: dexAMETHasone 20 MG/5 ML VIAL IM ONE (11:10)
--- NOTE | 2019-11-03 11:13 | Emergency Department Report ---
ED Back Pain/Injury HPI - General Chief Complaint: Back Pain/Injury Stated Complaint: LOW BACK PAIN Time Seen by Provider: 11/03/19 10:55 Source: patient Limitations: No Limitations - History of Present Illness Initial Comments: Patient reports hx of chronic back pain. Reports a flare of her chronic back pain. Denies trauma. Denies IVDA. Reports cocaine abuse. Denies bowel /bladder incontinence, saddle anasthesia, fever. - Related Data Previous Rx's Medication Instructions Recorded Last Taken Type Hydralazine HCl 50 mg PO BID #60 tablet 06/23/19 Unknown Rx Dicyclomine [Bentyl] 20 mg PO QID #20 tablet 07/20/19 Unknown Rx Ondansetron [Zofran ODT TAB] 8 mg PO Q8HR #20 tab.rapdis 07/20/19 Unknown Rx amLODIPine 10 mg PO QDAY #30 tablet 09/14/19 Unknown Rx Allergies Allergy/AdvReac Type Severity Reaction Status Date / Time No Known Allergies Allergy Verified 10/07/19 09:38 ED Review of Systems ROS: Stated complaint: LOW BACK PAIN Other details as noted in HPI Other: GENERAL: No weight change, fatigue, fever, chills, or night sweats SKIN: No changes in skin or hair, no itching, no rashes, no jaundice HEAD: No trauma EYES: No blurriness, tearing, itching, acute visual loss, conjunctival discoloration, or scleral icterus EARS: No hearing loss, tinnitus, vertigo, or earache NOSE: No rhinorrhea, stuffiness, sneezing, itching, or epistaxis MOUTH: No bleeding gums, hoarseness, sore throat, or swelling CARDIAC: No new murmur, chest pain, palpitations, dyspnea on exertion, orthopnea, PND, or edema RESPIRATORY: No shortness of breath, wheeze, cough, sputum production, hemoptysis GI: No abdominal pain, nausea, vomiting, dysphagia, diarrhea, constipation, hematemesis, melena, hematochezia URINARY: No frequency, urgency, polyuria, dysuria, hematuria, or incontinence MUSCULOSKELETAL: Back pain. No muscle weakness, joint stiffness, decrease in range of motion, redness, swelling NEUROLOGIC: No headache, syncope, loss of sensation, numbness, tingling, tremors, weakness, paralysis, seizures HEMATOLOGIC: No anemia, easy bruising, bleeding, petechiae, or purpura ENDOCRINE: No hot or cold intolerance, sweating, polyuria, polydipsia or, polyphagia no thyroid problems PSYCHIATRIC: No change in mood, no anxiety, no depression ED Past Medical Hx - Past Medical History Hx Hypertension: Yes Hx Congestive Heart Failure: No Hx Diabetes: No Hx Psychiatric Treatment: Yes (cocaine abuse, schizophrenia, bipolar) Hx Asthma: No Hx COPD: No Hx HIV: No Additional medical history: Scoliosis / gallstones - Surgical History Additional Surgical History: Surgery for scoliosis. Hernia repair. 1988 - Social History Smoking Status: Current Every Day Smoker - Medications Home Medications: Home Medications Medication Instructions Recorded Confirmed Last Taken Type Hydralazine HCl 50 mg PO BID #60 tablet 06/23/19 09/13/19 Unknown Rx Dicyclomine [Bentyl] 20 mg PO QID #20 tablet 07/20/19 09/13/19 Unknown Rx Ondansetron [Zofran ODT TAB] 8 mg PO Q8HR #20 tab.rapdis 07/20/19 09/13/19 Unknown Rx amLODIPine 10 mg PO QDAY #30 tablet 09/14/19 Unknown Rx ED Physical Exam - General Limitations: No Limitations - Other Other exam information: GENERAL: Patient in no acute distress HEAD: Normocephalic, atraumatic EYES: PERRLA, EOM intact, no scleral icterus, no conjunctival hemorrhage, visual gonzalez and acuity wnl NOSE: No tenderness, discharge, sinus tenderness MOUTH: No erythema, bleeding, exudate HEART: Regular rate and rhythm, no murmur, S1-S2 are auscultated, no edema, pulses are symmetric LUNGS: No respiratory distress. Bilateral breath sounds, No tachypnea, No retractions, No wheezing, rales, rhonchi ABDOMEN: Normal bowel sounds, abdomen soft, no tenderness, no rebound, no guarding, no distention, no masses, no CVA tenderness MUSCULOSKELETAL: Normal joint range of motion, no redness, no swelling, no tenderness NEUROLOGIC: GCS 15, Alert and Oriented x3, Cranial nerves intact, normal sensation, normal strength, no cerebellar deficit, NIHSS 0 PSYCHIATRIC: Patient dozing off during exam. Reports she did use cocaine. Patient hostile and uncooperative with staff. No homicidal or suicidal ideation , no hallucinations SKIN: Skin is warm and dry, no wounds, no rashes NEUROLOGIC: normal gait ED Course Vital Signs 11/03/19 11:08 Temperature 98.7 F Pulse Rate 74 Respiratory 18 Rate Blood Pressure 231/147 [Right] O2 Sat by Pulse 98 Oximetry ED Medical Decision Making - Medical Decision Making At 1306 patient refusing BP rechecks and demanding to go home. Patient comfortable resting on stretcher. Risks/benefits/alternatives discussed including /disability. Patient expresses understanding and request discharge. Return if any worsening. Critical care attestation.: If time is entered above; I have spent that time in minutes in the direct care of this critically ill patient, excluding procedure time. ED Disposition Clinical Impression: Cocaine abuse, Hypertensive urgency, Back pain at L4-L5 level, Left against medical advice, Drug-seeking behavior Disposition: LEFT AGAINST MED ADVICE Is pt being admited?: No Condition: Stable Instructions: Hypertensive Crisis (ED), Cocaine Abuse (ED), Chronic Back Pain (ED) Referrals: [facility] DORAL MD NORMA [Primary Care Provider] - 3-5 Days AARON BARRETO MD [Staff Physician] - 2-3 Days CRUZITO MACHADO MD [Referring] - 2-3 Days [facility] [Outside] - as needed Time of Disposition: 13:05
[2019-11-03] MEDS ORDERED: HALOPERIDOL LACTATE 5 MG/1 ML INJ IM ONE (11:19)
[2019-11-03] MEDS ORDERED: ACETAMINOPHEN 325 MG TAB PO ONE (11:20)
[2019-11-03 11:36] LABS: Amphetamine Screen,Urine PRESUMPTIVE NEGATIVE; Benzodiazepines Screen,Urine PRESUMPTIVE NEGATIVE; Cannabinoid Screen,Urine PRESUMPTIVE NEGATIVE; Methadone Screen,Urine PRESUMPTIVE NEGATIVE; Opiate Screen,Urine PRESUMPTIVE NEGATIVE
[2019-11-03 11:52] LABS: Cocaine Screen,Urine PRESUMPTIVE POSITIVE
[2019-11-04 00:37] VITALS: BP 186/90
== END 2019-11-03 23:50 | disposition left against medical advice (07) ==
LOC: ED 10:10
DX: I16.0 Hypertensive urgency (principal); F12.10 Cannabis abuse, uncomplicated; I10 Essential (primary) hypertension; F17.200 Nicotine dependence, unspecified, uncomplicated; F20.89 Other schizophrenia; F32.89 Other specified depressive episodes; Z79.899 Other long term (current) drug therapy; Z76.5 Malingerer [conscious simulation]
CPT/HCPCS: 80307; 82962; 96372; 99284; J1100; J1630; J1885

== ENCOUNTER 2020-12-20 15:04 | Emergency (ER) | payer MEDICAID ==
--- NOTE | 2020-12-20 15:27 | Event Note ---
ED Screening Note Date of service: 12/20/20 Time: 15:24 ED Screening Note: Pt complains of cough and SOB x 1 week hx of CHF, COPD, and HTN BP 197/132 This initial assessment/diagnostic orders/clinical plan/treatment(s) is/are subject to change based on patients health status, clinical progression and re- assessment by fellow clinical providers in the ED. Further treatment and workup at subsequent clinical providers discretion. Patient/guardian urged not to elope from the ED as their condition may be serious if not clinically assessed and managed. Initial orders include: labs CXR ekg
[2020-12-20 16:02] LABS: Basophils # (Auto) 0.1 K/mm3 (0.0-0.1); Basophils % (Auto) 0.6 % (0.0-1.8); Eosinophils # (Auto) 0.2 K/mm3 (0.0-0.4); Eosinophils % (Auto) 1.6 % (0.0-4.3); Hematocrit 47.2 % (30.3-42.9); Hemoglobin 14.9 gm/dl (10.1-14.3); Lymphocytes # (Auto) 1.1 K/mm3 (1.2-5.4); Lymphocytes % (Auto) 11.9 % (13.4-35.0); Mean Corpuscular HGB Conc 32 % (30-34); Mean Corpuscular Volume 85 fl (79-97); Monocytes % (Auto) 10.9 % (0.0-7.3); Platelet Count 168 K/mm3 (140-440); Red Blood Count 5.53 M/mm3 (3.65-5.03); Red Cell Distribution Width 16.1 % (13.2-15.2)
[2020-12-20] MEDS ORDERED: IPRATROPIUM/ALBUTEROL SULFATE 3 ML AMPUL.NEB IH ONE (16:09)
[2020-12-20] MEDS ORDERED: HYDROcodone/ACETAMINOPHEN 5-325 MG TAB PO ONE (16:09)
[2020-12-20] MEDS ORDERED: predniSONE 20 MG TAB PO ONE (16:09)
[2020-12-20] MEDS ORDERED: DOXYCYCLINE 100 MG CAP PO ONE (16:09)
--- NOTE | 2020-12-20 16:14 | XRay Report ---
CHEST PA AND LATERAL VIEWS INDICATION: shortness of breath. COMPARISON: 10/07/2019. FINDINGS: Support devices: None. Heart: Stable. Lungs/Pleura: Linear densities in the left lower lung likely due to atelectasis given their configura tion. There are are somewhat streaky opacities in the right lung base as well which may be atelectati c. IMPRESSION: 1. Presumed atelectatic changes in the lower lungs. Signer Name: Miky Fernandez MD Signed: 12/20/2020 4:09 PM Workstation Name: [id number]
--- NOTE | 2020-12-20 16:18 | Emergency Department Report ---
ED Shortness of Breath HPI - General Chief Complaint: Dyspnea/Respdistress Stated Complaint: COUGH/CHEST TIGHTNESS Time Seen by Provider: 12/20/20 15:20 Source: patient Mode of arrival: Ambulatory Limitations: No Limitations - History of Present Illness Initial Comments: CC: "bronchitis and sciatica" HPI: This is a 50 yo female with hx of CHF, COPD, HTN, cocaine dependence, schizophrenia, bipolar disorder, tobacco dependence who presents with cough, shortness of breath and "sciatica" pain. Gradual onset of symptoms of cough shortness of breath. +productive cough. Patient denies fever, chest pain, abdominal pain, body aches. She gives minimal description of her "sciaticia". She denies bowel or bladder incontinence. She denies leg weakness. MD Complaint: shortness of breath, cough -: Gradual, week(s) (1) Severity: mild Consistency: constant Improves With: bronchodilators Worsens With: nothing Known History Of: COPD, congestive heart failure, other (tobacco dependence) Associated Symptoms: other ("sciatica") - Related Data Previous Rx's Medication Instructions Recorded Last Taken Type Hydralazine HCl 50 mg PO BID #60 tablet 06/23/19 Unknown Rx Dicyclomine [Bentyl] 20 mg PO QID #20 tablet 07/20/19 Unknown Rx Ondansetron [Zofran ODT TAB] 8 mg PO Q8HR #20 tab.rapdis 07/20/19 Unknown Rx amLODIPine 10 mg PO QDAY #30 tablet 09/14/19 Unknown Rx ALBUTEROL NEB's [Proventil 0.083% 2.5 mg IH Q6H PRN #1 box 12/20/20 Unknown Rx NEBS] Albuterol Mdi (or & Nicu Only) 2 puff IH QID PRN #8.5 gram 12/20/20 Unknown Rx [ProAir HFA Inhaler] Doxycycline Hyclate [Doxycycline 100 mg PO Q12HR 7 Days #14 tab 12/20/20 Unknown Rx Hyclate TAB] Prednisone [predniSONE 10 mg 10 mg PO .TAPER #1 tab.ds.pk 12/20/20 Unknown Rx (6-Day Pack, 21 Tabs)] Allergies Allergy/AdvReac Type Severity Reaction Status Date / Time No Known Allergies Allergy Verified 10/07/19 09:38 ED Review of Systems ROS: Stated complaint: COUGH/CHEST TIGHTNESS Other details as noted in HPI Comment: All other systems reviewed and negative Constitutional: denies: fever, malaise Respiratory: cough, shortness of breath Cardiovascular: denies: chest pain Gastrointestinal: denies: abdominal pain, nausea, vomiting Neurological: denies: headache, numbness, paresthesias ED Past Medical Hx - Past Medical History Previous Medical History?: Yes Hx Hypertension: Yes Hx Congestive Heart Failure: Yes Hx Diabetes: No Hx Psychiatric Treatment: Yes (cocaine abuse, schizophrenia, bipolar) Hx Asthma: No Hx COPD: No Hx HIV: No Additional medical history: Scoliosis / gallstones - Surgical History Past Surgical History?: Yes Additional Surgical History: Surgery for scoliosis. Hernia repair. 1988 - Social History Smoking Status: Current Every Day Smoker Substance Use Type: Alcohol, Cocaine, Prescribed - Medications Home Medications: Home Medications Medication Instructions Recorded Confirmed Last Taken Type Hydralazine HCl 50 mg PO BID #60 tablet 06/23/19 09/13/19 Unknown Rx Dicyclomine [Bentyl] 20 mg PO QID #20 tablet 07/20/19 09/13/19 Unknown Rx Ondansetron [Zofran ODT TAB] 8 mg PO Q8HR #20 tab.rapdis 07/20/19 09/13/19 Unknown Rx amLODIPine 10 mg PO QDAY #30 tablet 09/14/19 Unknown Rx ALBUTEROL NEB's [Proventil 0.083% 2.5 mg IH Q6H PRN #1 box 12/20/20 Unknown Rx NEBS] Albuterol Mdi (or & Nicu Only) 2 puff IH QID PRN #8.5 gram 12/20/20 Unknown Rx [ProAir HFA Inhaler] Doxycycline Hyclate [Doxycycline 100 mg PO Q12HR 7 Days #14 tab 12/20/20 Unknown Rx Hyclate TAB] Prednisone [predniSONE 10 mg 10 mg PO .TAPER #1 tab.ds.pk 12/20/20 Unknown Rx (6-Day Pack, 21 Tabs)] ED Physical Exam - General Limitations: No Limitations General appearance: alert, in no apparent distress, other (frequent cough, speaking full word sentences, resting comfortable semisupine on stretcher) - Head Head exam: Present: atraumatic, normocephalic - Eye Eye exam: Present: normal appearance - ENT ENT exam: Present: mucous membranes moist - Neck Neck exam: Present: normal inspection, full ROM - Respiratory Respiratory exam: Present: normal lung sounds bilaterally. Absent: respiratory distress, wheezes, rales, rhonchi - Cardiovascular Cardiovascular Exam: Present: regular rate, normal rhythm, normal heart sounds. Absent: systolic murmur, diastolic murmur, rubs, gallop - GI/Abdominal GI/Abdominal exam: Present: soft, normal bowel sounds. Absent: distended, tenderness, guarding, rebound - Extremities Exam Extremities exam: Present: normal inspection - Neurological Exam Neurological exam: Present: alert, oriented X3 - Psychiatric Psychiatric exam: Present: normal affect, normal mood - Skin Skin exam: Present: warm, dry, intact, normal color. Absent: rash ED Course Vital Signs 12/20/20 12/20/20 12/20/20 15:20 15:21 16:19 Temperature 99 F 99 F 98.1 F Pulse Rate 84 84 88 Respiratory 22 22 20 Rate Blood Pressure 197/132 Blood Pressure 197/132 209/129 [Right] O2 Sat by Pulse 97 97 98 Oximetry ED Medical Decision Making - Lab Data Result diagrams: 12/20/20 15:48 12/20/20 15:48 - EKG Data -: EKG Interpreted by [facility] EKG shows normal: sinus rhythm, axis, intervals Rate: normal - EKG Data 12/20/20 17:11 EKG obtained 1528 EKG interpreted by il Normal sinus rhythm rate 80 bpm normal axis normal intervals nonspecific T wave pattern no ST elevation - Radiology Data Radiology results: report reviewed CHEST PA AND LATERAL VIEWS INDICATION: shortness of breath. COMPARISON: 10/07/2019. FINDINGS: Support devices: None. Heart: Stable. Lungs/Pleura: Linear densities in the left lower lung likely due to atelectasis given their configuration. There are are somewhat streaky opacities in the right lung base as well which may be atelectatic. IMPRESSION: 1. Presumed atelectatic changes in the lower lungs. - Medical Decision Making 1. Acute bronchitis with history of tobacco use without respiratory distress. Oxygen saturation 97%. Patient is ambulatory without difficulty. I have prescribed albuterol nebulizer treatment albuterol MDI prednisone doxycycline. No evidence of pulmonary edema or infiltrate on chest radiograph 2. "Sciatica": Patient symptoms do not appear to cause her any discomfort. She is ambulatory without difficulty. She does not appear to be in pain. She would not elaborate on her "sciatica". I recommended [id number] treatment such as Tylenol ibuprofen. 3. Hypertensive urgency: No evidence of endorgan damage. I recommended follow- up with primary care physician. She was given referral to an outpatient medicine physician Critical care attestation.: If time is entered above; I have spent that time in minutes in the direct care of this critically ill patient, excluding procedure time. ED Disposition Clinical Impression: Acute bronchitis, History of sciatica, Hypertensive urgency Disposition: DC TO HOME OR SELFCARE Is pt being admited?: No Does the pt Need Aspirin: No Condition: Stable Instructions: Steps to Quit Smoking, [id number], Acute Bronchitis (ED) Prescriptions: Doxycycline Hyclate [Doxycycline Hyclate TAB] 100 mg PO Q12HR 7 Days #14 tab Prednisone [predniSONE 10 mg (6-Day Pack, 21 Tabs)] 10 mg PO .TAPER #1 tab.ds.pk Albuterol Mdi (or & Nicu Only) [ProAir HFA Inhaler] 2 puff IH QID PRN #8.5 gram PRN Reason: Shortness Of Breath ALBUTEROL NEB's [Proventil 0.083% NEBS] 2.5 mg IH Q6H PRN #1 box PRN Reason: Shortness Of Breath Referrals: ANSLEY BRUMFIELD MD [Staff Physician] - 3-5 Days
[2020-12-20 16:23] VITALS: BP 209/129
[2020-12-20 16:28] LABS: Alanine Aminotransferase 19 units/L (7-56); Albumin 4.1 g/dL (3.9-5); BUN/Creatinine Ratio 13; Blood Urea Nitrogen 24 mg/dL (7-17); Calcium 9.1 mg/dL (8.4-10.2); Hemolysis Index 8
== END 2020-12-20 17:45 | disposition home or self-care (01) ==
LOC: ED 15:04
DX: J20.9 Acute bronchitis, unspecified (principal); M54.30 Sciatica, unspecified side; I11.0 Hypertensive heart disease with heart failure; I50.9 Heart failure, unspecified; F17.200 Nicotine dependence, unspecified, uncomplicated; F14.10 Cocaine abuse, uncomplicated; Z98.890 Other specified postprocedural states; Z79.899 Other long term (current) drug therapy
CPT/HCPCS: 36415; 71046; 80053; 83880; 84484; 85025; 93005; 94640; 99284; J7512; 94644

== ENCOUNTER 2021-09-07 14:27 | Emergency (ER) | payer MEDICAID ==
--- NOTE | 2021-09-07 14:37 | Emergency Department Report ---
ED CPR HPI - General Chief Complaint: Cardiac Arrest/CPR Stated Complaint: CPR Time Seen by Provider: 09/07/21 14:31 - History of Present Illness Initial Comments: This is a 51-year-old -[place] female presents to the emergency department via EMS from home in cardiac arrest. The patient was last seen awake and alive at around 10 AM. She ate some food and then it sounds like she went to rest and/or take a nap. At about 145 the patient was found to be unresponsive by family and EMS was called. EMS arrived about 10 minutes later and found the patient to be pulseless and in asystole and they initiated ACLS protocol. The patient was given a Inder airway and then bag valve ventilation, a right AC IV was placed, and the patient was receiving chest compressions. She was given 3 doses of epinephrine, 1 dose of sodium bicarbonate, and 2 mg of Narcan while they continued ACLS protocol. The patient did not have ROSC and remained in asystole during the entire EMS course. She had an Accu-Chek in route at about 240. EMS said that she had a past medical history of hypertension. This patient has been in our emergency department previously and also has a history of renal insufficiency not on hemodialysis, bipolar disorder, schizophrenia. Upon arrival to the emergency department the patient was brought into room #1 will be continued bag valve ventilation and chest compressions. The patient was still pulseless and in asystole. - Related Data Previous Rx's Medication Instructions Recorded Last Taken Type Hydralazine HCl 50 mg PO BID #60 tablet 06/23/19 Unknown Rx Dicyclomine [Bentyl] 20 mg PO QID #20 tablet 07/20/19 Unknown Rx Ondansetron [Zofran ODT TAB] 8 mg PO Q8HR #20 tab.rapdis 07/20/19 Unknown Rx amLODIPine 10 mg PO QDAY #30 tablet 09/14/19 Unknown Rx ALBUTEROL NEB's [Proventil 0.083% 2.5 mg IH Q6H PRN #1 box 12/20/20 Unknown Rx NEBS] Albuterol Mdi (or & Nicu Only) 2 puff IH QID PRN #8.5 gram 12/20/20 Unknown Rx [ProAir HFA Inhaler] Doxycycline Hyclate [Doxycycline 100 mg PO Q12HR 7 Days #14 tab 12/20/20 Unknown Rx Hyclate TAB] Prednisone [predniSONE 10 mg 10 mg PO .TAPER #1 tab.ds.pk 12/20/20 Unknown Rx (6-Day Pack, 21 Tabs)] Allergies Allergy/AdvReac Type Severity Reaction Status Date / Time No Known Allergies Allergy Verified 10/07/19 09:38 ED Review of Systems ROS: Stated complaint: CPR Other details as noted in HPI Comment: Unobtainable due to pts medical conditions ED Past Medical Hx - Past Medical History Hx Hypertension: Yes Hx Congestive Heart Failure: Yes Hx Diabetes: No Hx Psychiatric Treatment: Yes (cocaine abuse, schizophrenia, bipolar) Hx Asthma: No Hx COPD: No Hx HIV: No Additional medical history: Scoliosis / gallstones - Surgical History Additional Surgical History: Surgery for scoliosis. Hernia repair. 1988 - Social History Smoking Status: Current Every Day Smoker Substance Use Type: Alcohol, Cocaine, Prescribed - Medications Home Medications: Home Medications Medication Instructions Recorded Confirmed Last Taken Type Hydralazine HCl 50 mg PO BID #60 tablet 06/23/19 09/13/19 Unknown Rx Dicyclomine [Bentyl] 20 mg PO QID #20 tablet 07/20/19 09/13/19 Unknown Rx Ondansetron [Zofran ODT TAB] 8 mg PO Q8HR #20 tab.rapdis 07/20/19 09/13/19 Unknown Rx amLODIPine 10 mg PO QDAY #30 tablet 09/14/19 Unknown Rx ALBUTEROL NEB's [Proventil 0.083% 2.5 mg IH Q6H PRN #1 box 12/20/20 Unknown Rx NEBS] Albuterol Mdi (or & Nicu Only) 2 puff IH QID PRN #8.5 gram 12/20/20 Unknown Rx [ProAir HFA Inhaler] Doxycycline Hyclate [Doxycycline 100 mg PO Q12HR 7 Days #14 tab 12/20/20 Unknown Rx Hyclate TAB] Prednisone [predniSONE 10 mg 10 mg PO .TAPER #1 tab.ds.pk 12/20/20 Unknown Rx (6-Day Pack, 21 Tabs)] ED Physical Exam - Other Other exam information: GENERAL: Patient is ill-appearing and unresponsive. HENT: Normocephalic. Atraumatic. EYES: Pupils are fixed and dilated. NECK: Supple. Trachea appears midline. CHEST/LUNGS: There are no spontaneous respirations. HEART/CARDIOVASCULAR: There are no spontaneous heart sounds. ABDOMEN: Abdomen is soft. Morbidly obese habitus. SKIN: Skin is cool but dry. NEURO: Unresponsive. Does not withdraw to painful stimuli. Does not follow any commands. MUSCULOSKELETAL: There is no obvious deformity. There is no evidence of acute injury. No palpable femoral or radial pulses. ED Course Vital Signs 09/07/21 14:39 Pulse Rate 0 L Respiratory 0 L Rate ED Medical Decision Making - Medical Decision Making This patient presents from home in cardiac arrest. EMS was performing ACLS protocol for about 30 minutes including bag valve ventilation through the Inder airway, chest compressions, and she was given 3 doses of epinephrine, 1 amp of sodium bicarbonate, and 2 mg of Narcan without ROSC. The patient remained in asystole throughout her EMS course. The patient was brought into room #1 where she was placed on our Zole monitor. We continued bag valve ventilation and chest compressions. Overall we did 3 rounds of ACLS protocol including 3 doses of epinephrine, 1 dose of sodium bicarbonate, 1 dose of calcium. Patient remained in asystole throughout her ED course without ROSC. There was a very brief and temporary episode of PEA towards the end. The patient has been pulseless and anoxic for over 40 minutes. There are no spontaneous heart or breath sounds, the pupils are fixed and dilated. Time of called at 1430. Family was notified and they were given an opportunity to see the patient. Critical care attestation.: If time is entered above; I have spent that time in minutes in the direct care of this critically ill patient, excluding procedure time. ED Disposition Clinical Impression: Cardiac arrest Acute respiratory failure Qualifiers: Respiratory failure complication: unspecified whether with hypoxia or hypercapnia Qualified Code(s): J96.00 - Acute respiratory failure, unspecified whether with hypoxia or hypercapnia Disposition: 20 Is pt being admited?: No Time of Disposition: 18:14
== END 2021-09-07 18:15 ==
LOC: ED 14:27
DX: I46.9 Cardiac arrest, cause unspecified (principal); J96.00 Acute respiratory failure, unspecified whether with hypoxia or hypercapnia; I10 Essential (primary) hypertension; F17.200 Nicotine dependence, unspecified, uncomplicated; F31.9 Bipolar disorder, unspecified; F20.9 Schizophrenia, unspecified; F12.10 Cannabis abuse, uncomplicated; Z72.89 Other problems related to lifestyle; Z98.890 Other specified postprocedural states
CPT/HCPCS: 92950; 99285